=== PATIENT | female | born 1950 | race Caucasian/White ===

== ENCOUNTER 2018-06-02 03:04 | Outpatient (CLI) | payer MEDICARE, MEDICAID, SELFPAY ==
[2018-06-02 10:52] LABS: Abs Immature Grans 0.03 k/cumm (0.0-0.09); Absolute Basophil Count 0.03 k/cumm (0.0-0.2); Absolute Eosinophil Count 0.28 k/cumm (0.0-0.7); Absolute Lymphocyte Count 1.74 k/cumm (1.2-3.4); Absolute Monocyte Count 0.49 k/cumm (0.11-0.7); Absolute Neutrophil Count 2.91 k/cumm (1.2-6.7); Basophils % 0.5; Eosinophils % 5.1; HCT 40.6 % (36.0-46.0); HGB 13.5 g/dL (12.0-15.5); Immature Grans % 0.5; Lymphocytes % 31.8; Mean Corp. HGB Concentration 33.3 g/dL (32.0-36.0); Mean Corpuscular Hemoglobin 31.3 pg (27.0-33.0); Mean Corpuscular Volume 94.2 fL (80-95); Mean Platelet Volume 10.7 fL (8.0-11.0); Monocytes % 8.9; Neutrophils % 53.2; Platelet Count 249 x1000/uL (130-400); RBC 4.31 m/cumm (4.00-5.20); RBC Distribution Width 13.4 % (11.7-14.6); White Blood Cell Count 5.48 k/cumm (4.4-10.8)
[2018-06-02 11:20] LABS: ALT 24 U/L (12-78); AST 17 U/L (15-37); Alkaline Phosphatase 79 U/L (46-116); Anion Gap 7.1 mmol/L (3-11); BUN 20 mg/dL (7-18); Bilirubin, Total 0.5 mg/dL (0.2-1.0); CO2 32.9 mmol/L (21.0-32.0); CREATININE 0.97 mg/dL (0.55-1.02); Calcium 9.5 mg/dL (8.5-10.1); Chloride 103 mmol/L (98-107); Cholesterol 239 mg/dL (50-200); Estimated GFR 56.94 (mL/min/1.73m2); Glucose 98 mg/dL (70-100); HDL Cholesterol 49 mg/dL (40-60); LDL CHOLESTEROL 137 mg/dL (<100); Potassium 3.8 mmol/L (3.5-5.1); Sodium 143 mmol/L (136-145); TSH 3.79 uIU/mL (0.358-3.74); Total Protein 7.7 g/dL (6.4-8.2); Triglyceride 207 mg/dL (30-150)
[2018-06-02 11:49] LABS: FREE T4 1.07 ng/dL (0.76-1.46)
== END 2018-06-02 03:24 ==
PROVIDERS: PCP Nurse Practitioner Family; Visit Provider Nurse Practitioner Family
DX: E03.9 Hypothyroidism, unspecified (principal); E78.5 Hyperlipidemia, unspecified; I10 Essential (primary) hypertension; R79.89 Other specified abnormal findings of blood chemistry
CPT/HCPCS: 36415; 80053; 80061; 83721; 83036; 84439; 84443; 85025

== ENCOUNTER 2018-06-10 00:55 | Outpatient (CLI) | payer MEDICARE, MEDICAID, SELFPAY ==
--- NOTE | 2018-06-10 14:10 | DI.MAMMO_ITS ---
SYMPTOM/DIAGNOSIS: SCREENING, Z12.31 MAMMOGRAMS: Mammograms were interpreted according to the usual protocol including computer analysis with CAD system, tomosynthesis and C view imaging. Comparison with prior examinations. Breast density Category B. No suspicious masses or microcalcifications are seen. There is no definite evidence of malignancy. IMPRESSION: Negative mammogram. Routine screening is recommended. Category I. MQSA ASSESSMENT OF FINDINGS: Negative. Category 1. Patient will receive a letter notifying them of these results. BI-RADS category B. There are scattered areas of fibroglandular density.
--- NOTE | 2018-06-10 14:42 | DI.RAD_ITS ---
SYMPTOMS/DIAGNOSIS: SCREENING FOR OSTEOPOROSIS, Z78.0, POSTMENOPAUSAL DEXA SCAN: The scanogram is unremarkable. For the left forearm, a T score of -2.2 and a Z score of -0.2 were recorded, the findings consistent with osteopenia and an increased fracture risk. For the left hip, a T score of -1.2 and a Z score of 0.3 are consistent with osteopenia and an increased fracture risk. For the lumbar spine, a T score of -1.8 and a Z score of 0.3 are also consistent with osteopenia and an increased fracture risk.
== END 2018-06-10 01:15 ==
PROVIDERS: PCP Nurse Practitioner Family; Visit Provider Nurse Practitioner Family
DX: Z12.31 Encounter for screening mammogram for malignant neoplasm of breast (principal); M85.88 Other specified disorders of bone density and structure, other site; Z78.0 Asymptomatic menopausal state
CPT/HCPCS: 77063; 77067; 77080

== ENCOUNTER 2018-08-20 06:55 | Outpatient (CLI) | payer MEDICARE, MEDICAID, SELFPAY ==
[2018-08-20 11:35] LABS: ALT 31 U/L (12-78); AST 21 U/L (15-37); Albumin 3.8 g/dL (3.4-5.0); Alkaline Phosphatase 84 U/L (46-116); Anion Gap 9.7 mmol/L (3-11); BUN 19 mg/dL (7-18); Bilirubin, Total 0.5 mg/dL (0.2-1.0); CO2 30.3 mmol/L (21.0-32.0); CREATININE 1.17 mg/dL (0.55-1.02); Calcium 9.5 mg/dL (8.5-10.1); Chloride 101 mmol/L (98-107); Cholesterol 138 mg/dL (50-200); Estimated GFR 45.73 (mL/min/1.73m2); Glucose 104 mg/dL (70-100); HDL Cholesterol 45 mg/dL (40-60); LDL CHOLESTEROL 64 mg/dL (<100); Potassium 3.7 mmol/L (3.5-5.1); Sodium 141 mmol/L (136-145); TSH 1.22 uIU/mL (0.358-3.74); Total Protein 7.3 g/dL (6.4-8.2); Triglyceride 140 mg/dL (30-150)
[2018-08-20 11:56] LABS: FREE T4 1.21 ng/dL (0.76-1.46)
== END 2018-08-20 07:15 ==
PROVIDERS: PCP Nurse Practitioner Family; Visit Provider Nurse Practitioner Family
DX: E03.9 Hypothyroidism, unspecified (principal); E78.5 Hyperlipidemia, unspecified
CPT/HCPCS: 36415; 80053; 80061; 83721; 84439; 84443

== ENCOUNTER 2019-04-01 16:18 | Outpatient (REF) | payer MEDICARE, MEDICAID, SELFPAY ==
[2019-04-04 13:47] LABS: HSV 1 DNA Result Negative (Negative); HSV 2 DNA Result Positive (Negative)
== END 2019-04-01 16:38 ==
LOC: LBN 16:18
PROVIDERS: Visit Provider Obstetrics & Gynecology Gynecology
DX: N76.2 Acute vulvitis (principal)
CPT/HCPCS: 87529

== ENCOUNTER 2019-06-14 07:23 | Outpatient (CLI) | payer MEDICARE, MEDICAID, SELFPAY ==
[2019-06-14 13:08] LABS: ALT 34 U/L (14-59); AST 20 U/L (15-37); Albumin 4.1 g/dL (3.4-5.0); Alkaline Phosphatase 82 U/L (46-116); Anion Gap 6.7 mmol/L (3-11); BUN 19 mg/dL (7-18); Bilirubin, Total 0.5 mg/dL (0.2-1.0); CO2 33.3 mmol/L (21.0-32.0); CREATININE 1.23 mg/dL (0.55-1.02); Calcium 9.2 mg/dL (8.5-10.1); Calculated LDL 81 mg/dL (<100); Chloride 104 mmol/L (98-107); Cholesterol 159 mg/dL (<200); Estimated GFR 43.17 (mL/min/1.73m2); Glucose 104 mg/dL (74-106); HDL Cholesterol 47 mg/dL (40-60); Potassium 3.9 mmol/L (3.5-5.1); Sodium 144 mmol/L (136-145); TSH (W/Ref FT4) 4.32 uIU/mL (0.36-3.74); Total Protein 7.7 g/dL (6.4-8.2); Triglyceride 159 mg/dL (<150)
[2019-06-14 13:26] LABS: FREE T4 1.12 ng/dL (0.76-1.46)
== END 2019-06-14 07:43 ==
DX: E03.9 Hypothyroidism, unspecified (principal); R73.03 Prediabetes; E78.5 Hyperlipidemia, unspecified; I10 Essential (primary) hypertension; G47.00 Insomnia, unspecified; J02.9 Acute pharyngitis, unspecified
CPT/HCPCS: 36415; 80053; 80061; 84439; 84443

== ENCOUNTER 2020-05-18 02:20 | Outpatient (CLI) | payer MEDICARE, MEDICAID, SELFPAY ==
[2020-05-19 14:14] LABS: COVID-19 RT-PCR UVMMC Result Negative (Negative)
== END 2020-05-18 02:21 | disposition home or self-care (01) ==
LOC: LBO 02:20
DX: Z20.822 Contact with and (suspected) exposure to COVID-19 (principal); J02.9 Acute pharyngitis, unspecified
CPT/HCPCS: U0003; U0005; 87070

== ENCOUNTER 2020-05-31 03:24 | Outpatient (CLI) | payer MEDICARE, MEDICAID, SELFPAY ==
[2020-05-31 12:35] LABS: ALT 49 U/L (14-59); AST 27 U/L (15-37); Albumin 3.9 g/dL (3.4-5.0); Alkaline Phosphatase 90 U/L (46-116); Anion Gap 8.1 mmol/L (3-11); BUN 19 mg/dL (7-18); Bilirubin, Total 0.6 mg/dL (0.2-1.0); CO2 29.9 mmol/L (21.0-32.0); CREATININE 1.2 mg/dL (0.55-1.02); Calcium 9.7 mg/dL (8.5-10.1); Chloride 103 mmol/L (98-107); Estimated GFR 44.29 (mL/min/1.73m2); Glucose 102 mg/dL (74-106); Potassium 4.3 mmol/L (3.5-5.1); Sodium 141 mmol/L (136-145); TSH (W/Ref FT4) 0.29 uIU/mL (0.36-3.74); Total Protein 7.7 g/dL (6.4-8.2)
[2020-05-31 12:54] LABS: FREE T4 1.25 ng/dL (0.76-1.46)
== END 2020-05-31 03:25 | disposition home or self-care (01) ==
LOC: LOS 03:25
DX: E03.9 Hypothyroidism, unspecified (principal)
CPT/HCPCS: 36415; 80053; 84439; 84443

== ENCOUNTER 2020-06-15 03:42 | Outpatient (CLI) | payer MEDICARE, MEDICAID, SELFPAY ==
--- NOTE | 2020-06-15 11:12 | DI.MAMMO_ITS ---
EXAM: MAMMO SCREENING CLINICAL HISTORY: SCREENING, Z12.39 TECHNIQUE: Mammograms were interpreted according to the usual protocol including computer analysis w [employer] CAD system, tomosynthesis and C-view imaging. COMPARISON: FINDINGS: The breasts are of moderate density with fairly symmetrical distribution of fibroglandular tissue. N o dominant mass or clumped microcalcification is identified in either breast. The current examinatio n is compared with previous examinations including May 2018 and there has been no gross interval ch [place] in appearance in comparison with the prior studies. IMPRESSION: No specific evidence of malignancy at this time. Routine screening examinations are suggested at yea rly intervals in this age group according to the ACS ACR guidelines. BI-RADS Category 1 - Negative Breast Density - Category B - Scattered areas of fibroglandular density
== END 2020-06-15 04:02 ==
DX: Z12.31 Encounter for screening mammogram for malignant neoplasm of breast (principal)
CPT/HCPCS: 77063; 77067

== ENCOUNTER 2021-01-03 02:31 | Outpatient (CLI) | payer MEDICARE, MEDICAID, SELFPAY ==
[2021-01-03 12:58] LABS: TSH (W/Ref FT4) 1.55 uIU/mL (0.36-3.74)
== END 2021-01-03 02:32 | disposition home or self-care (01) ==
LOC: LOS 02:32
DX: E03.9 Hypothyroidism, unspecified (principal)
CPT/HCPCS: 36415; 84443

== ENCOUNTER 2021-07-01 02:40 | Outpatient (CLI) | payer MEDICARE, MEDICAID, SELFPAY | END 2021-07-01 02:41 | disposition home or self-care (01) | LOC: LBO 02:40 ==

== ENCOUNTER 2021-07-05 02:30 | Outpatient (CLI) | payer MEDICARE, MEDICAID, SELFPAY ==
[2021-07-05 11:27] LABS: ALT 30 U/L (14-59); AST 25 U/L (15-37); Albumin 3.9 g/dL (3.4-5.0); Alkaline Phosphatase 99 U/L (46-116); Anion Gap 9.8 mmol/L (3-11); BUN 18 mg/dL (7-18); Bilirubin, Total 0.5 mg/dL (0.2-1.0); CO2 29.2 mmol/L (21.0-32.0); CREATININE 1.1 mg/dL (0.55-1.02); Calcium 8.8 mg/dL (8.5-10.1); Calculated LDL 63 mg/dL (<100); Chloride 104 mmol/L (98-107); Cholesterol 140 mg/dL (<200); Estimated GFR 48.82 (mL/min/1.73m2); Glucose 98 mg/dL (74-106); HDL Cholesterol 40 mg/dL (40-60); Potassium 3.6 mmol/L (3.5-5.1); Sodium 143 mmol/L (136-145); TSH (W/Ref FT4) 1.98 uIU/mL (0.36-3.74); Total Protein 7.5 g/dL (6.4-8.2); Triglyceride 187 mg/dL (<150)
== END 2021-07-05 02:31 | disposition home or self-care (01) ==
LOC: LBO 02:30
DX: E78.5 Hyperlipidemia, unspecified (principal); E03.9 Hypothyroidism, unspecified; I10 Essential (primary) hypertension
CPT/HCPCS: 36415; 80053; 80061; 84443

== ENCOUNTER → 2021-09-10 00:23 | Outpatient (CLI) | payer MEDICARE, MEDICAID, SELFPAY ==
--- NOTE | 2021-09-10 10:30 | DI.MAMMO_ITS ---
Exam(s) MAMMO SCREENING EXAM: MAMMO SCREENING CLINICAL HISTORY: screening,z12.39 TECHNIQUE: Mammograms were interpreted according to the usual protocol including computer analysis w [employer] CAD system, tomosynthesis and C-view imaging. COMPARISON: 2012 through 2020 FINDINGS: The breasts are composed of scattered fibroglandular densities, Breast Density category B. No suspicious masses or suspicious microcalcifications are seen. Vascular calcifications are present . No skin thickening or abnormal axillary lymph nodes are seen. There has been no significant change from prior exams. IMPRESSION: BI-RADS Category 1, Negative mammogram Yearly screening mammography is recommended. Breast Density - Category B, scattered fibroglandular densities. A negative radiographic report should not delay biopsy if a dominant or clinically suspicious mass is present. Up to ten percent of cancers are not identified on mammography. A negative report may reinforce clinical impression. Adenosis and dense breasts may obscure an underlying neoplasm. False positive reports average 6 to 10%. Patient will receive a letter notifying them of these results.
== END ==
DX: Z12.31 Encounter for screening mammogram for malignant neoplasm of breast (principal)
CPT/HCPCS: 77063; 77067

== ENCOUNTER 2022-02-03 08:41 | Inpatient (IN) | payer MEDICARE, MEDICAID, SELFPAY ==
[2022-02-03] VITALS (72 sets, daily range): BP systolic 78–129; BP diastolic 38–97; PULSE 68–179; RESP 13–29; TEMP 36.7–38.6; O2SAT 93–96
--- NOTE | 2022-02-03 | DI.US_ITS ---
Exam(s) US RENAL EXAM: US RENAL CLINICAL HISTORY: KEYLA. TECHNIQUE: German scale, color and spectral Doppler were used. COMPARISON: No exams were available for comparison FINDINGS: Renal size in cm: Right: 11.5 left: 10.6 Echogenicity: Normal Hydronephrosis: No Cyst or mass: 3.3 centimeters cyst lateral lower pole right kidney. 5.7 by 6 centimeters cyst lower pole left kidney. Nephrolithiasis: No Bladder:Normal Prevoid vol:312 cc Postvoid vol:Not performed. IMPRESSION: Bilateral renal cysts. No evidence of hydronephrosis. DATA REPOSITORY:
--- NOTE | 2022-02-03 09:00 | RT.EKG_ITS ---
APPROVED REPORT Exam: Resting ECG Reason for Exam: tachycardia Patient Location: E HR:154 bpm ECG Measurements Heart Rate 154 AXIS SD [id number] P [id number] QRSd 84 QRS 17 QT 262 T 245 QTc 424 Conclusion Atrial fibrillation with rapid V-rate...A-rate 417 Repolarization abnormality, prob rate related...ST dep, T neg, tachycardia no STEMI I have reviewed and interpreted ECG and agree with software generated interpretation.
[2022-02-03] MEDS: dilTIAZem 25 MG/5 ML VIAL 10 MG IVP (09:17)
[2022-02-03] MEDS: Normal Saline 250 ML IV (09:28)
[2022-02-03 09:29] LABS: Lactate 1.8 mmol/L (0.6-1.4)
[2022-02-03] MEDS: Calcium Gluconate 4.65 MEQ/10 ML VIAL 4.65 MG IVP (09:44)
[2022-02-03 09:45] LABS: Abs Immature Grans 0.06 10^3/uL (0.0-0.06); HCT 39.6 % (36.0-46.0); HGB 13.1 g/dL (11.2-15.7); MCH 29.8 pg (27.0-33.0); MCHC 33.1 % (32.0-36.0); MCV 90 fL (80-95); MPV 10.6 fL (8.0-11.0); Platelet Count 219 10^3/uL (130-400); RDW 12.4 % (11.7-14.6); RDW-SD 40.9 fL
--- NOTE | 2022-02-03 09:45 | DI.CT_ITS ---
Exam(s) CT HEAD WO EXAM: CT HEAD WO CLINICAL HISTORY: right sided headache. TECHNIQUE: Imaging Protocol: Axial computed tomography images with coronal and sagittal reformatted images were created and reviewed COMPARISON: CT CERVICAL SPINE WITHOUT CONTRA from 06/22/2016 FINDINGS: Ventricles and Extra axial spaces: Normal in size and morphology for the patient's age. Hemorrhage: None. Cerebral parenchyma: Normal. Midline shift: None. Brainstem/Cerebellum: Normal. Calvarium: Normal. Visualized Paranasal sinuses/Mastoids: Minimal mucous retention floor of left maxillary sinus. Soft Tissues: Unremarkable. IMPRESSION: No acute intracranial process. RADIATION DOSE DELIVERED: 652.59mGy.cm Total DLP DATA REPOSITORY: All CT scans at this facility are submitted to the National Radiology Data Registry (NRDR) Dose Index Registry (DIR) with the [employer] ([employer]). RADIATION OPTIMIZATION: All CT scans at this facility use at least one of these dose optimization te chniques: automated exposure control; mA and/or kV adjustment per patient size (includes targeted exa ms where dose is matched to clinical indication); or iterative reconstruction.
--- NOTE | 2022-02-03 10:00 | DI.RAD_ITS ---
Exam(s) XR CHEST 2V PA LATERAL EXAM: XR CHEST 2V PA LATERAL CLINICAL HISTORY: new afib, fever TECHNIQUE: 2D digital imaging was performed. COMPARISON: CR LEFT SHOULDER COMPLETE from 03/30/2017 FINDINGS: HEART: Normal size. Aorta: PULMONARY VASCULATURE: Normal. LUNGS: Clear. PLEURAL SPACE: No pleural effusion or pneumothorax. BONE:Unremarkable for age. IMPRESSION: No acute abnormality. DATA REPOSITORY: RADIATION DOSE DELIVERED:
[2022-02-03 10:05] LABS: ALT 34 U/L (14-59); AST 44 U/L (15-37); Albumin 3.1 g/dL (3.4-5.0); Alkaline Phosphatase 135 U/L (46-116); BUN 43 mg/dL (7-18); Bilirubin, Total 1.1 mg/dL (0.2-1.0); Calcium 8.9 mg/dL (8.5-10.1); Chloride 95 mmol/L (98-107); Estimated GFR 12.38 (mL/min/1.73m2); Glucose 133 mg/dL (74-106); Magnesium 1.7 mg/dL (1.8-2.4); NT-proBNP 1791 pg/mL (<300); Sodium 136 mmol/L (136-145); TSH (W/Ref FT4) 0.54 uIU/mL (0.36-3.74); Total Protein 8.2 g/dL (6.4-8.2); Troponin I < 50 ng/L (<or=60)
[2022-02-03 10:10] LABS: Absolute Lymphocyte Count 1.02 10^3/uL (1.2-3.4); Absolute Monocyte Count 0.64 10^3/uL (0.1-0.8); Absolute Neutrophil Count 11.14 10^3/uL (1.2-6.7); Atypical Lymphocytes % 0; Bands % 0; Diff Comment Manual Differential; RBC Morphology Normal
[2022-02-03 10:15] LABS: CREATININE 3.7 mg/dL (0.55-1.02); Potassium 2.7 mmol/L (3.5-5.1)
[2022-02-03 10:16] LABS: COVID-19 PCR Negative (Negative); Influenza A PCR Negative (Negative); Influenza B PCR Negative (Negative); RSV PCR Negative (Negative)
--- NOTE | 2022-02-03 10:19 | ED.GENADUL_ITS ---
Discharge Plan Disposition Patient Disposition: Admit to [facility] Discharge Details Chief Complaint: GenMedical Clinical Impression: Atrial fibrillation with rapid ventricular response, KEYLA (acute kidney injury) Admit Date/Time: 02/03/22 10:34 Admit Provider: Shirley Nichols Attending Provider: Shirley Nichols Primary Care Provider: Teofilo Steele ED Provider: Yahaira Jeffrey Discharge Data Discharge Date/Time-TO BE ENTERED AT DEPARTURE: 02/03/22 11:31 Medical Decision Making Concern for new onset afib with RVR, dehydration, COVID, possible other infection, ACS, PE, metabolic/lyte derangement, post shingles neuropathy/trigemi nal neuralgia, other. Less likely acute emergent intracranial process. Exam/hx at this time is not c/w acute aortic pathology, CVA, SAH, meningitis. Plan for IV placement, EKG, IVF, screening labs, 10mg IV diltiazem, telemetry, CXR, CT head, will monitor and reassess. Pt with SBP 80 after IV diltiazem, previously 120, Pt converted to SR with HR 90s. Plan for IVF, will monitor. Not improving significantly after IVF, plan for IV calcium. Labs reviewed, WBC 12.8, d-dimer 4320, lactate 1.8, Cr 3.7, mag 1.7, trop neg. CT head neg, CXR neg per radiology. Pt with SBP 90. Plan for admission for further eval. Holding CT chest at this time given KEYLA, less likely PE as etiology. Medical Records Medical records reviewed: Yes I reviewed the patient's medical records. Imaging Data Radiologic Study: Radiologist's impression: EXAM:? XR CHEST 2V PA ? LATERAL CLINICAL HISTORY:? new afib, fever TECHNIQUE:? 2D digital imaging was performed. COMPARISON:? CR LEFT SHOULDER COMPLETE from 03/30/2017 FINDINGS: HEART: Normal size.? Aorta: PULMONARY VASCULATURE: Normal. LUNGS: Clear. ? PLEURAL SPACE: No pleural effusion or pneumothorax. BONE:Unremarkable for age.? IMPRESSION: No acute abnormality.? EXAM: ? CT HEAD WO CLINICAL HISTORY: ? right sided headache. ? TECHNIQUE:? Imaging Protocol: Axial computed tomography images with coronal and sagittal reformatted images were created and reviewed COMPARISON:? CT CERVICAL SPINE WITHOUT CONTRA from 06/22/2016 FINDINGS: Ventricles and Extra axial spaces: Normal in size and morphology for the patient's age. Hemorrhage: None. Cerebral parenchyma: Normal. Midline shift: None. Brainstem/Cerebellum: Normal. Calvarium: Normal. Visualized Paranasal sinuses/Mastoids: Minimal mucous retention floor of left maxillary sinus.? Soft Tissues: Unremarkable. IMPRESSION: No acute intracranial process. Lab Data Lab results reviewed: Yes I reviewed the patient's lab results. Labs: 02/03/22 10:00 Blood Blood Culture - Pending 02/03/22 09:45 Blood Blood Culture - Pending Laboratory Tests Range/Units 02/03/22 02/03/22 02/03/22 09:18 09:18 09:18 WBC (4.4-10.8) 10^3/uL 12.80 H RBC (3.93-5.22) 10^6/uL 4.40 Hgb (11.2-15.7) g/dL 13.1 Hct (36.0-46.0) % 39.6 MCV (80-95) fL 90 MCH (27.0-33.0) pg 29.8 MCHC (32.0-36.0) % 33.1 RDW (11.7-14.6) % 12.4 Plt Count (130-400) 10^3/uL 219 MPV (8.0-11.0) fL 10.6 Immature Gran % 0.0 Neutrophils % 87.0 Band Neutrophils % 0 Lymphocytes % 8.0 Atypical Lymphs % 0 Monocytes % 5.0 Eosinophils % 0.0 Basophils % 0.0 Nucleated RBC % (0.0-0.3) % 0.0 Absolute Neutrophils (1.2-6.7) 10^3/uL 11.14 H Absolute Lymphocytes (1.2-3.4) 10^3/uL 1.02 L Absolute Monocytes (0.1-0.8) 10^3/uL 0.64 Absolute Eosinophils (0.0-0.7) 10^3/uL 0.00 Absolute Basophils (0.0-0.2) 10^3/uL 0.00 RBC Morphology Normal D-Dimer (<500) ng/mlFEU 4320 H VBG Lactate (0.6-1.4) mmol/L Sodium (136-145) mmol/L 136 Potassium (3.5-5.1) mmol/L 2.7 L* Chloride (98-107) mmol/L 95 L Carbon Dioxide (21.0-32.0) mmol/L 24.0 Anion Gap (3-11) mmol/L 17.0 H BUN (7-18) mg/dL 43 H Creatinine (0.55-1.02) mg/dL 3.7 H* Est GFR (CKD-EPI 2020) (mL/min/1.73m2) 12.38 Glucose (74-106) mg/dL 133 H Calcium (8.5-10.1) mg/dL 8.9 Magnesium (1.8-2.4) mg/dL 1.7 L Total Bilirubin (0.2-1.0) mg/dL 1.1 H AST (15-37) U/L 44 H ALT (14-59) U/L 34 Alkaline Phosphatase (46-116) U/L 135 H Troponin I (<or=60) ng/L < 50 C-Reactive Protein (0.0-0.3) mg/dL NT-Pro-B Natriuret Pep (<300) pg/mL 1791 H Total Protein (6.4-8.2) g/dL 8.2 Albumin (3.4-5.0) g/dL 3.1 L Procalcitonin ng/mL TSH (0.36-3.74) uIU/mL 0.54 COVID-19 Source SARS-CoV-2 (PCR) (Negative) Influenza Type A (PCR) (Negative) Influenza Type B (PCR) (Negative) RSV (PCR) (Negative) Add-On Test Request Range/Units 02/03/22 02/03/22 02/03/22 09:18 09:18 09:35 WBC (4.4-10.8) 10^3/uL RBC (3.93-5.22) 10^6/uL Hgb (11.2-15.7) g/dL Hct (36.0-46.0) % MCV (80-95) fL MCH (27.0-33.0) pg MCHC (32.0-36.0) % RDW (11.7-14.6) % Plt Count (130-400) 10^3/uL MPV (8.0-11.0) fL Immature Gran % Neutrophils % Band Neutrophils % Lymphocytes % Atypical Lymphs % Monocytes % Eosinophils % Basophils % Nucleated RBC % (0.0-0.3) % Absolute Neutrophils (1.2-6.7) 10^3/uL Absolute Lymphocytes (1.2-3.4) 10^3/uL Absolute Monocytes (0.1-0.8) 10^3/uL Absolute Eosinophils (0.0-0.7) 10^3/uL Absolute Basophils (0.0-0.2) 10^3/uL RBC Morphology D-Dimer (<500) ng/mlFEU VBG Lactate (0.6-1.4) mmol/L 1.8 H Sodium (136-145) mmol/L Potassium (3.5-5.1) mmol/L Chloride (98-107) mmol/L Carbon Dioxide (21.0-32.0) mmol/L Anion Gap (3-11) mmol/L BUN (7-18) mg/dL Creatinine (0.55-1.02) mg/dL Est GFR (CKD-EPI 2020) (mL/min/1.73m2) Glucose (74-106) mg/dL Calcium (8.5-10.1) mg/dL Magnesium (1.8-2.4) mg/dL Cancelled Total Bilirubin (0.2-1.0) mg/dL AST (15-37) U/L ALT (14-59) U/L Alkaline Phosphatase (46-116) U/L Troponin I (<or=60) ng/L C-Reactive Protein (0.0-0.3) mg/dL NT-Pro-B Natriuret Pep (<300) pg/mL Total Protein (6.4-8.2) g/dL Albumin (3.4-5.0) g/dL Procalcitonin ng/mL TSH (0.36-3.74) uIU/mL COVID-19 Source Not Applicable SARS-CoV-2 (PCR) (Negative) Negative Influenza Type A (PCR) (Negative) Negative Influenza Type B (PCR) (Negative) Negative RSV (PCR) (Negative) Negative Add-On Test Request Range/Units 02/03/22 02/03/22 02/03/22 09:48 09:48 09:48 WBC (4.4-10.8) 10^3/uL RBC (3.93-5.22) 10^6/uL Hgb (11.2-15.7) g/dL Hct (36.0-46.0) % MCV (80-95) fL MCH (27.0-33.0) pg MCHC (32.0-36.0) % RDW (11.7-14.6) % Plt Count (130-400) 10^3/uL MPV (8.0-11.0) fL Immature Gran % Neutrophils % Band Neutrophils % Lymphocytes % Atypical Lymphs % Monocytes % Eosinophils % Basophils % Nucleated RBC % (0.0-0.3) % Absolute Neutrophils (1.2-6.7) 10^3/uL Absolute Lymphocytes (1.2-3.4) 10^3/uL Absolute Monocytes (0.1-0.8) 10^3/uL Absolute Eosinophils (0.0-0.7) 10^3/uL Absolute Basophils (0.0-0.2) 10^3/uL RBC Morphology D-Dimer (<500) ng/mlFEU VBG Lactate (0.6-1.4) mmol/L Sodium (136-145) mmol/L Potassium (3.5-5.1) mmol/L Chloride (98-107) mmol/L Carbon Dioxide (21.0-32.0) mmol/L Anion Gap (3-11) mmol/L BUN (7-18) mg/dL Creatinine (0.55-1.02) mg/dL Est GFR (CKD-EPI 2020) (mL/min/1.73m2) Glucose (74-106) mg/dL Calcium (8.5-10.1) mg/dL Magnesium (1.8-2.4) mg/dL Total Bilirubin (0.2-1.0) mg/dL AST (15-37) U/L ALT (14-59) U/L Alkaline Phosphatase (46-116) U/L Troponin I (<or=60) ng/L C-Reactive Protein (0.0-0.3) mg/dL > 25.00 H NT-Pro-B Natriuret Pep (<300) pg/mL Total Protein (6.4-8.2) g/dL Albumin (3.4-5.0) g/dL Procalcitonin ng/mL 20.1 TSH (0.36-3.74) uIU/mL COVID-19 Source SARS-CoV-2 (PCR) (Negative) Influenza Type A (PCR) (Negative) Influenza Type B (PCR) (Negative) RSV (PCR) (Negative) Add-On Test Request DONE ECG Data Attestation: I personally reviewed and interpreted this ECG (s) as follows: Interpretation: EKG shows A. fib at 154, normal axis, no STEMI HPI General Mode of arrival: ambulatory . Date/Time Provider Initiated Documentation: 02/03/22 08:42 . Limitations to Documentation: no limitations . Information obtained by: patient, family, RN notes reviewed and old records reviewed . HPI Narrative: Sujata Najera is a 71-year-old woman with history of hyperlipidemia, hypertension, hypothyroidism presenting to the emergency department with generalized weakness. Patient reports that for the past 3 days she has had intermittent chills, subjective fever, lightheadedness, and generalized weakness. She has also had sharp pain in her right scalp tracking down her right face into the right preauricular area intermittently over that time. Patient reports that she has had shingles in that area in the past approximately 3 years ago, she is unsure if this pain is similar to what she experienced with her prior episode of carola ngles. She denies any other pain, vomiting, diarrhea, SOB, cough, numbness, focal weakness. Somewhat decreased appetite. Related Data Home Medications Medication Instructions Recorded Confirmed acetaminophen 500 mg tablet 1,000 mg PO BID PRN 01/03/19 02/03/22 ibuprofen 600 mg tablet 600 mg PO TID PRN pain #180 tabs 01/03/19 02/03/22 levothyroxine 75 mcg tablet 75 mcg PO DAILY #90 tab-caps 12/13/20 02/03/22 rosuvastatin 10 mg tablet 10 mg PO DAILY #90 tabs 12/13/20 02/03/22 doxepin 25 mg capsule 25 mg PO QHS #30 caps 01/08/22 02/03/22 halobetasol propionate 0.05 % 1 applic topical BID PRN for hand 01/08/22 02/03/22 topical ointment eczema #15 grams triamcinolone acetonide 0.5 % 1 applic topical BID dermatitis 01/08/22 02/03/22 topical cream #45 grams losartan 100 mg tablet 100 mg PO DAILY #90 tabs 01/10/22 02/03/22 gabapentin 300 mg capsule 1 cap PO TID 02/03/22 02/03/22 hydrochlorothiazide 25 mg tablet 1 tab PO DAILY 02/03/22 02/03/22 apixaban 5 mg tablet (Eliquis) 5 mg PO BID #60 tabs 02/07/22 Previous Rx's Medication Instructions Recorded ibuprofen 600 mg tablet 600 mg PO TID PRN pain #180 tabs 01/03/19 levothyroxine 75 mcg tablet 75 mcg PO DAILY #90 tab-caps 12/13/20 rosuvastatin 10 mg tablet 10 mg PO DAILY #90 tabs 12/13/20 doxepin 25 mg capsule 25 mg PO QHS #30 caps 01/08/22 halobetasol propionate 0.05 % 1 applic topical BID PRN for hand 01/08/22 topical ointment eczema #15 grams triamcinolone acetonide 0.5 % 1 applic topical BID dermatitis 01/08/22 topical cream #45 grams losartan 100 mg tablet 100 mg PO DAILY #90 tabs 01/10/22 apixaban 5 mg tablet (Eliquis) 5 mg PO BID #60 tabs 02/07/22 Allergies Allergy/AdvReac Type Severity Reaction Status Date / Time tramadol AdvReac Intermediate Nausea, Verified 02/03/22 09:04 dizziness lisinopril AdvReac Mild COUGH Verified 02/03/22 09:04 General Stated Complaint: GenMedical MARIA: 2 Review of Systems Narrative: Constitutional: reports intermittent sweating, chills, has not measured temp Eyes: denies eye pain ENT: denies ear pain, dental pain, sore throat Cardiovascular: denies chest pain, palpitations, reports lightheadedness, mild b/l edema at baseline Respiratory: denies SOB, cough GI: denies abdominal pain, vomiting, diarrhea : denies flank pain MSK: denies back pain, neck pain, arthralgias, reports generalized myalgias Skin: denies rash Neuro: denies headaches, numbness, weakness PFSH All Active Problems Sepsis (Acute) Trigeminal neuralgia of right side of face (Acute) Discharge planning issues (Acute) DVT prophylaxis (Acute) Hypomagnesemia (Acute) Elevated d-dimer (Acute) KEYLA (acute kidney injury) (Acute) Acute CHF (Acute) Atrial fibrillation with rapid ventricular response (Acute) Essential hypertension (Chronic) Hyperlipidemia (Chronic) Hypothyroidism (Chronic) Vaginal atrophy (Chronic 11/09/17) Rx with vaginal Estrogen cream. Expense of vaginal estrogen cream was an issue Chronic vulvitis (Chronic) Long-standing approximately 3 years duration 09/2017 briefly used vaginal Jose Guadalupe monika and triamcinolone topical steroid with improvement. 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 Dermatitis (Acute) Chronic heartburn (Chronic) Advance directive declined by patient (Acute) Medical History Acute vulvitis 02/20/2019. Developed into lesions. PCR: HSV2. Patient advised to notify the office in the event of another flare Postherpetic neuralgia Surgical History S/P appendectomy S/P left oophorectomy For ovarian cyst S/P tonsillectomy and adenoidectomy S/P tubal ligation (~1978) Status post left shoulder hemiarthroplasty (03/30/17) Hemiarthroplasty left shoulder using humeral CAP prosthesis Family History Mother , at 87 Essential hypertension Heart disease Stroke Atrial fibrillation Father , at 78 Essential hypertension Heart disease Asthma Type 2 diabetes mellitus Chronic kidney disease Myocardial infarction Hyperlipidemia Brother No problems noted. Brother , at 54 Alcohol abuse Type 2 diabetes mellitus Hepatitis C Liver disease Sister Schizophrenia Hypothyroidism Son Schizophrenia Son Bipolar disorder Alcohol abuse Substance abuse Maternal Grandfather No problems noted. Maternal Grandmother Heart disease Paternal Grandfather No problems noted. Paternal Grandmother No problems noted. Social History Smoking/Tobacco Use Status: Never Second Hand Exposure: Yes Smoking risk assessment performed?: Yes Alcohol Intake: never Drug use: Never Substance use type: does not use Household members: children Housing: house Pets and animals: Yes Pets and animals: cat(s) Sexually active: No Do you think of yourself as: straight/heterosexual Current gender identity: male and decline to answer What is your relationship status?: How often do you talk on the phone with friends or family?: decline to answer How often do you get together with friends or relatives?: decline to answer How often do you attend christianity or yarsani services?: decline to answer Do you belong to any clubs or organized social groups?: no Panel score (0-1 are the most socially isolated patients): 0 What type of physical activity do you participate in: walking Duration: < 15 minutes/day Frequency: daily Gill/Mosque: Sabianism Special gill needs: No Seatbelt use: always Helmet use: No Drive intox or ride w/intox commercial relief driver: No Do you feel safe at home: Yes Do you feel safe in your relationship?: Yes Female Reproductive History Menstrual Menopause type: natural Date of menopause: 03/23/95 History History 2 Para 2 Hx # Term Pregnancies Multiple births Hx # Pregnancies Ectopic pregnancies AB induced Hx Number of Living Children 2 AB spontaneous Exam Narrative Exam Narrative: Constitutional: ill appearing, pleasant, conversing normally HENT: head atraumatic/normocephalic/normal inspection, mucous membranes dry Eyes: conjunctiva normal, sclera normal, pupils 3mm b/l Neck: no stridor, normal ROM, trachea midline Chest: normal inspection Resp: normal work of breathing, LCTAB Cardio: tachycardic rate, irregular rhythm, no murmur appreciated GI: abdomen soft, non-tender, non-distended Back: normal inspection, no rash Skin: warm, dry, normal color, no rash Neuro: alert, not altered, grossly non-focal, normal tone Ext: no posterior calf TTP, moving all extremities equally Psych: normal mood, normal affect, normal behavior Course Vital Signs Vital signs: Vital Signs Temperature 36.7 C 02/03/22 08:54 Pulse 172 H 02/03/22 08:54 Respiratory Rate 20 02/03/22 08:54 Pulse Oximetry 96 02/03/22 08:54 Temperature 36.7 C 02/03/22 08:54 Temperature Source Tympanic 02/03/22 08:54 Pulse 170 H 02/03/22 09:17 Respiratory Rate 20 02/03/22 09:00 Respiratory Effort 02/03/22 09:00 Respiratory Depth Normal 02/03/22 09:00 Respiratory Pattern Normal 02/03/22 09:00 Blood Pressure Position Supine 02/03/22 08:54 Pulse Oximetry 96 02/03/22 08:54 Oxygen Delivery Method Room Air 02/03/22 08:54 Oxygen Flow Rate 0 02/03/22 08:54 Lab/Test Results Lab/Test Results: 02/03/22 10:00 Blood Blood Culture - Pending 02/03/22 09:45 Blood Blood Culture - Pending Laboratory Tests Range/Units 02/03/22 02/03/22 02/03/22 09:18 09:18 09:18 WBC (4.4-10.8) 10^3/uL 12.80 H RBC (3.93-5.22) 10^6/uL 4.40 Hgb (11.2-15.7) g/dL 13.1 Hct (36.0-46.0) % 39.6 MCV (80-95) fL 90 MCH (27.0-33.0) pg 29.8 MCHC (32.0-36.0) % 33.1 RDW (11.7-14.6) % 12.4 Plt Count (130-400) 10^3/uL 219 MPV (8.0-11.0) fL 10.6 Immature Gran % 0.0 Neutrophils % 87.0 Band Neutrophils % 0 Lymphocytes % 8.0 Atypical Lymphs % 0 Monocytes % 5.0 Eosinophils % 0.0 Basophils % 0.0 Nucleated RBC % (0.0-0.3) % 0.0 Absolute Neutrophils (1.2-6.7) 10^3/uL 11.14 H Absolute Lymphocytes (1.2-3.4) 10^3/uL 1.02 L Absolute Monocytes (0.1-0.8) 10^3/uL 0.64 Absolute Eosinophils (0.0-0.7) 10^3/uL 0.00 Absolute Basophils (0.0-0.2) 10^3/uL 0.00 RBC Morphology Normal VBG Lactate (0.6-1.4) mmol/L 1.8 H Sodium (136-145) mmol/L 136 Potassium (3.5-5.1) mmol/L 2.7 L* Chloride (98-107) mmol/L 95 L Carbon Dioxide (21.0-32.0) mmol/L 24.0 Anion Gap (3-11) mmol/L 17.0 H BUN (7-18) mg/dL 43 H Creatinine (0.55-1.02) mg/dL 3.7 H* Est GFR (CKD-EPI 2020) (mL/min/1.73m2) 12.38 Glucose (74-106) mg/dL 133 H Calcium (8.5-10.1) mg/dL 8.9 Magnesium (1.8-2.4) mg/dL 1.7 L Total Bilirubin (0.2-1.0) mg/dL 1.1 H AST (15-37) U/L 44 H ALT (14-59) U/L 34 Alkaline Phosphatase (46-116) U/L 135 H Troponin I (<or=60) ng/L < 50 NT-Pro-B Natriuret Pep (<300) pg/mL 1791 H Total Protein (6.4-8.2) g/dL 8.2 Albumin (3.4-5.0) g/dL 3.1 L TSH (0.36-3.74) uIU/mL 0.54 COVID-19 Source SARS-CoV-2 (PCR) (Negative) Influenza Type A (PCR) (Negative) Influenza Type B (PCR) (Negative) RSV (PCR) (Negative) Range/Units 02/03/22 02/03/22 09:18 09:35 WBC (4.4-10.8) 10^3/uL RBC (3.93-5.22) 10^6/uL Hgb (11.2-15.7) g/dL Hct (36.0-46.0) % MCV (80-95) fL MCH (27.0-33.0) pg MCHC (32.0-36.0) % RDW (11.7-14.6) % Plt Count (130-400) 10^3/uL MPV (8.0-11.0) fL Immature Gran % Neutrophils % Band Neutrophils % Lymphocytes % Atypical Lymphs % Monocytes % Eosinophils % Basophils % Nucleated RBC % (0.0-0.3) % Absolute Neutrophils (1.2-6.7) 10^3/uL Absolute Lymphocytes (1.2-3.4) 10^3/uL Absolute Monocytes (0.1-0.8) 10^3/uL Absolute Eosinophils (0.0-0.7) 10^3/uL Absolute Basophils (0.0-0.2) 10^3/uL RBC Morphology VBG Lactate (0.6-1.4) mmol/L Sodium (136-145) mmol/L Potassium (3.5-5.1) mmol/L Chloride (98-107) mmol/L Carbon Dioxide (21.0-32.0) mmol/L Anion Gap (3-11) mmol/L BUN (7-18) mg/dL Creatinine (0.55-1.02) mg/dL Est GFR (CKD-EPI 2020) (mL/min/1.73m2) Glucose (74-106) mg/dL Calcium (8.5-10.1) mg/dL Magnesium (1.8-2.4) mg/dL Cancelled Total Bilirubin (0.2-1.0) mg/dL AST (15-37) U/L ALT (14-59) U/L Alkaline Phosphatase (46-116) U/L Troponin I (<or=60) ng/L NT-Pro-B Natriuret Pep (<300) pg/mL Total Protein (6.4-8.2) g/dL Albumin (3.4-5.0) g/dL TSH (0.36-3.74) uIU/mL COVID-19 Source Not Applicable SARS-CoV-2 (PCR) (Negative) Negative Influenza Type A (PCR) (Negative) Negative Influenza Type B (PCR) (Negative) Negative RSV (PCR) (Negative) Negative Critical Care Time Critical Care Time Attestation: I have spent 35 minutes of critical care time with this critically ill patient.
[2022-02-03 10:20] LABS: D-Dimer 4320 ng/mlFEU (<500)
--- NOTE | 2022-02-03 10:30 | DI.US_ITS ---
Exam(s) US EXTREMITY VENOUS BI EXAM: US EXTREMITY VENOUS BI CLINICAL HISTORY: BLE edema, ?DVT. TECHNIQUE: Bilateral lower extremity venous ultrasound performed using grayscale, color-flow, and sp ectral Doppler analysis. COMPARISON: No exams were available for comparison FINDINGS: The bilateral common femoral, femoral and popliteal veins demonstrate normal compressibility, augment ation, and color Doppler. The posterior tibial veins are patent. IMPRESSION: Right: Negative for DVT Left: Negative for DVT DATA REPOSITORY:
[2022-02-03] MEDS: MAGNESIUM SULFATE 1 GM/100 ML BAG IVPB (10:55)
[2022-02-03] MEDS: POTASSIUM CHLORIDE 20 MEQ/100 ML BAG 50 MEQ IVPB ×2 (10:55→13:21)
--- NOTE | 2022-02-03 12:13 | W.PM.HP.N ---
Date of service: 02/03/22 Time of Service: 12:13 Assessment and Plan Assessment and plan (1) Sepsis: Status: Acute Assessment and plan: Source unclear. Need to r/o UTI/bacteremia. Started on empiric vancomycin, ceftriaxone, doxycycline. Will monitor above studies. Trend CRP, procalcitionin which are quite elevated. IVF boluses until euvolemic. (2) Atrial fibrillation with rapid ventricular response: Status: Acute Assessment and plan: In setting of sepsis. Converted to NSR. New diagnosis. TSH ok. Hydrate. Obtain echo. Start heparin gtt. Cardiac monitoring. Prn IV lopressor. (3) Hypotension: Status: Acute Assessment and plan: In setting of sepsis, dehydration, having recently received diltiazem. IVF, treat infection. (4) KEYLA (acute kidney injury): Status: Acute Assessment and plan: In setting of sepsis, clinical dehydration. Obtain UA, US renal, FENa, IVF. (5) Hypokalemia: Status: Acute Assessment and plan: Replete and recheck. Replete mag. (6) Elevated d-dimer: Status: Acute Assessment and plan: Await venous dopplers. (7) Hypomagnesemia: Status: Acute Assessment and plan: Replet eand recheck (8) Trigeminal neuralgia of right side of face: Status: Acute Assessment and plan: Trial gabapentin (9) DVT prophylaxis: Status: Acute Assessment and plan: Heparin gtt (10) Discharge planning issues: Status: Acute Assessment and plan: DNR/DNI as discussed with the patient. Admit to the ICU. History of Present Illness History of Present Illness Chief Complaint: Weakness, subjective fevers/chills, body aches, R-sided headache, SOB Narrative: Ms Najera is a 71 year old female with PMHx of HTN, hyperlipidemia, hypothyroidism, post-herpetic neuralgia in trigeminal distribution on the R in the past, who presented to [facility] ED today reporting 3 days of malaise/fatigue, subjective fevers/chills, generalized weakness, diffuse body aches, nausea without vomiting or diarrhea. The patient also describes chest pains yesterday (subcostal on the L) which happened at rest, shortness of breath at the time of presentation to ED - started at rest, per patient. She reports occasional R-sided headache which she is not having at the time of exam which is similar to the pain from shingles in the past. She denies a cough, runny nose, sore throat, dysuria. She does describe urinary dribbling and suprapubic discomfort. In the ED, the patient was in rapid Afib with HR in 180s. Her rhythm converted to sinus after receiving 10 mg of IV diltiazem, but then her SBPs went down to the 90s, necessitating IV fluid boluses. Hospitalists were asked to admit the patient for further evaluation. Review of Systems All systems reviewed & are unremarkable except as noted in HPI and below PFSH All Active Problems Sepsis (Acute) Hypotension (Acute) Trigeminal neuralgia of right side of face (Acute) Discharge planning issues (Acute) DVT prophylaxis (Acute) Hypomagnesemia (Acute) Elevated d-dimer (Acute) Hypokalemia (Acute) KEYLA (acute kidney injury) (Acute) Acute CHF (Acute) Atrial fibrillation with rapid ventricular response (Acute) Essential hypertension (Chronic) Hyperlipidemia (Chronic) Hypothyroidism (Chronic) Vaginal atrophy (Chronic 11/09/17) Rx with vaginal Estrogen cream. Expense of vaginal estrogen cream was an issue Chronic vulvitis (Chronic) Long-standing approximately 3 years duration 09/2017 briefly used vaginal Premarin and triamcinolone topical steroid with improvement. 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 Dermatitis (Acute) Chronic heartburn (Chronic) Advance directive declined by patient (Acute) Medical History (Updated 02/03/22 @ 13:43 by Shirley Nichols MD) Acute vulvitis 02/20/2019. Developed into lesions. PCR: HSV2. Patient advised to notify the office in the event of another flare Postherpetic neuralgia Surgical History S/P appendectomy S/P left oophorectomy For ovarian cyst S/P tonsillectomy and adenoidectomy S/P tubal ligation (~1978) Status post left shoulder hemiarthroplasty (03/30/17) Hemiarthroplasty left shoulder using humeral CAP prosthesis Family History Mother , at 87 Essential hypertension Heart disease Stroke Atrial fibrillation Father , at 78 Essential hypertension Heart disease Asthma Type 2 diabetes mellitus Chronic kidney disease Myocardial infarction Hyperlipidemia Brother No problems noted. Brother , at 54 Alcohol abuse Type 2 diabetes mellitus Hepatitis C Liver disease Sister Schizophrenia Hypothyroidism Son Schizophrenia Son Bipolar disorder Alcohol abuse Substance abuse Maternal Grandfather No problems noted. Maternal Grandmother Heart disease Paternal Grandfather No problems noted. Paternal Grandmother No problems noted. Social History (Updated 06/24/21 @ 15:57 by Ifeoma Richardson) Smoking/Tobacco Use Status: Never Second Hand Exposure: Yes Smoking risk assessment performed?: Yes Alcohol Intake: never Drug use: Never Substance use type: does not use Household members: children Housing: house Pets and animals: Yes Pets and animals: cat(s) Sexually active: No Do you think of yourself as: straight/heterosexual Current gender identity: male and decline to answer What is your relationship status?: How often do you talk on the phone with friends or family?: decline to answer How often do you get together with friends or relatives?: decline to answer How often do you attend confucianism or methodist services?: decline to answer Do you belong to any clubs or organized social groups?: no Panel score (0-1 are the most socially isolated patients): 0 What type of physical activity do you participate in: walking Duration: < 15 minutes/day Frequency: daily Gill/Restorationist: Scientology Special gill needs: No Seatbelt use: always Helmet use: No Drive intox or ride w/intox party bus driver: No Do you feel safe at home: Yes Do you feel safe in your relationship?: Yes Female Reproductive History Menstrual Menopause type: natural Date of menopause: 03/23/95 History History 2 Para 2 Hx # Term Pregnancies Multiple births Hx # Pregnancies Ectopic pregnancies AB induced Hx Number of Living Children 2 AB spontaneous Meds Allergies and Home Medications Allergies Allergy/AdvReac Type Severity Reaction Status Date / Time tramadol AdvReac Intermediate Nausea, Verified 02/03/22 09:04 dizziness lisinopril AdvReac Mild COUGH Verified 02/03/22 09:04 Home Medications Medication Instructions Recorded Confirmed Type acetaminophen 500 mg tablet 1,000 mg PO BID PRN 01/03/19 01/08/22 History ibuprofen 600 mg tablet 600 mg PO TID PRN pain #180 tabs 01/03/19 01/08/22 Rx levothyroxine 75 mcg tablet 75 mcg PO DAILY #90 tab-caps 12/13/20 01/08/22 Rx rosuvastatin 10 mg tablet 10 mg PO DAILY #90 tabs 12/13/20 01/08/22 Rx doxepin 25 mg capsule 25 mg PO QHS #30 caps 01/08/22 01/08/22 Rx halobetasol propionate 0.05 % 1 applic topical BID PRN for hand 01/08/22 01/08/22 Rx topical ointment eczema #15 grams triamcinolone acetonide 0.5 % 1 applic topical BID dermatitis 01/08/22 01/08/22 Rx topical cream #45 grams losartan 100 mg tablet 100 mg PO DAILY #90 tabs 01/10/22 Rx Exam Narrative Exam Narrative: General: Elderly female who is A&Ox3, appears to not be feeling well. Tired. Neurological: A&ox3, no focal deficits, no lesions on R-side of the face or external R ear Psychiatric: appears to have a flat affect Skin: Visible skin intact with the exception of healing excoriations/dry skin RLE HEENT: Atraumatic, normocephalic, EOMI, MMM, clear oropharynx with the exception of white film on tongue, no submandibular or cervical lymphadenopathy, no goiter or JVD Cardiovascular: RRR, +BETH Lungs: CTAB anteriorly (getting an EKG done) Gastrointestinal: soft, nontender, nondistended Genitourinary: deferred Extremities: trace edema BLEs, 2+ pedal pulses B, BLE warm Results Imaging Additional studies: CT head w/o contrast: No acute intracranial process. CXR: No acute abnormality.? EKG: Afib, HR 157, nonspecific diffuse ST-T changes Labs Result diagrams: 02/03/22 09:18 02/03/22 09:18 Labs: Laboratory Results - last 24 hr 02/03/22 02/03/22 02/03/22 09:18 09:18 09:18 WBC 12.80 H RBC 4.40 Hgb 13.1 Hct 39.6 MCV 90 MCH 29.8 MCHC 33.1 RDW 12.4 Plt Count 219 MPV 10.6 Immature Gran % 0.0 Neutrophils % 87.0 Band Neutrophils % 0 Lymphocytes % 8.0 Atypical Lymphs % 0 Monocytes % 5.0 Eosinophils % 0.0 Basophils % 0.0 Nucleated RBC % 0.0 Absolute Neutrophils 11.14 H Absolute Lymphocytes 1.02 L Absolute Monocytes 0.64 Absolute Eosinophils 0.00 Absolute Basophils 0.00 RBC Morphology Normal D-Dimer 4320 H VBG Lactate Sodium 136 Potassium 2.7 L* Chloride 95 L Carbon Dioxide 24.0 Anion Gap 17.0 H BUN 43 H Creatinine 3.7 H* Est GFR (CKD-EPI 2020) 12.38 Glucose 133 H Calcium 8.9 Magnesium 1.7 L Total Bilirubin 1.1 H AST 44 H ALT 34 Alkaline Phosphatase 135 H Troponin I < 50 NT-Pro-B Natriuret Pep 1791 H Total Protein 8.2 Albumin 3.1 L TSH 0.54 COVID-19 Source SARS-CoV-2 (PCR) Influenza Type A (PCR) Influenza Type B (PCR) RSV (PCR) 02/03/22 02/03/22 02/03/22 09:18 09:18 09:35 WBC RBC Hgb Hct MCV MCH MCHC RDW Plt Count MPV Immature Gran % Neutrophils % Band Neutrophils % Lymphocytes % Atypical Lymphs % Monocytes % Eosinophils % Basophils % Nucleated RBC % Absolute Neutrophils Absolute Lymphocytes Absolute Monocytes Absolute Eosinophils Absolute Basophils RBC Morphology D-Dimer VBG Lactate 1.8 H Sodium Potassium Chloride Carbon Dioxide Anion Gap BUN Creatinine Est GFR (CKD-EPI 2020) Glucose Calcium Magnesium Cancelled Total Bilirubin AST ALT Alkaline Phosphatase Troponin I NT-Pro-B Natriuret Pep Total Protein Albumin TSH COVID-19 Source Not Applicable SARS-CoV-2 (PCR) Negative Influenza Type A (PCR) Negative Influenza Type B (PCR) Negative RSV (PCR) Negative Last Vital Signs Temp 36.7 C 02/03/22 08:54 Pulse 85 02/03/22 11:17 Resp 17 02/03/22 11:17 BP 82/48 L 02/03/22 11:17 Pulse Ox 96 02/03/22 09:01
--- NOTE | 2022-02-03 12:15 | RT.EKG_ITS ---
APPROVED REPORT Exam: Resting ECG Reason for Exam: Afib, converted to NSR Patient Location: I HR:83 bpm ECG Measurements Heart Rate 83 AXIS MT 193 P 70 QRSd 84 QRS 55 QT 355 T 5 QTc 418 Conclusion Sinus rhythm...normal P axis, V-rate 50- 99 Atrial premature complexes...SV complexes w/ short R-R intvls
[2022-02-03] MEDS: Lactated Ringers 500 ML IV (12:28)
[2022-02-03 12:43] LABS: Lab Add On Test DONE
[2022-02-03 13:17] LABS: C-Reactive Protein > 25.00 mg/dL (0.0-0.3)
[2022-02-03 13:21] LABS: Procalcitonin 20.1 ng/mL
--- NOTE | 2022-02-03 13:21 | DI.US_ITS ---
APPROVED REPORT EXAM: Comprehensive 2D, Doppler, and color-flow Echocardiogram Patient Location: In-Patient Room/Bed: [id number] Ship Scaler: Vanna Freeman RDCS (AE) Indications: New onset A Fib Other Information Study Quality: Fair. Technically limited study due to body habitus, inability to position patient exa m done beside icu supine. Conclusion Normal left ventricular wall thickness and chamber size. Estimated ejection fraction is 55 to 60%. Wall motion is normal Normal right ventricular size and systolic function Both atria are normal in size There is no structural or hemodynamically significant valvular disease Estimated right ventricular systolic pressure is 23 mmHg Patient was in sinus rhythm throughout the study Wall motion Left Ventricle The left ventricle is normal size. The overall left ventricular systolic function appears normal. The re is normal left ventricular wall thickness. There is normal LV segmental wall motion. There is no v entricular septal defect visualized. LVEF is 57%. Right Ventricle The right ventricle is normal size. The right ventricular systolic function is normal. The RVSP is 22 .8 mmHg. Atria The left atrium size is normal. The right atrium size is normal. The interatrial septum is intact wit h no evidence for an atrial septal defect. Aortic Valve The aortic valve is normal in structure. There is no aortic valvular stenosis. No aortic regurgitatio n is present. Mitral Valve The mitral valve is normal in structure. No evidence of mitral valve stenosis. Trace mitral regurgita tion. Tricuspid Valve The tricuspid valve is normal in structure. There is no tricuspid valve stenosis. Trace tricuspid reg urgitation. Pulmonic Valve Pulmonic valve is not well visualized. There is no pulmonic valvular stenosis. There is no pulmonic v alvular regurgitation. Great Vessels The aortic root is normal in size. Ascending aorta is not well visualized. Aortic arch is normal in c aliber. IVC is normal in size and collapses >50% with inspiration. Pericardium There is no pericardial effusion. 2D Dimensions IVSD d PLAX 1.00 cm F: 0.6-1.0 LV Vol A2C d MOD 54.0 mL LVPW d PLAX 1.00 cm F: 0.6 - 1.0 LV Vol A4C d MOD 52.9 mL LVID d PLAX 4.13 cm F: 3.8 - 5.2 LA vol/ BSA A2C s A-L 18.2 mL/m2 LVDs 2.95 cm F: 2.2 - 3.5 LA vol/ BSA A4C s A-L 21.4 mL/m2 Ao Root d 3.00 cm F: 2.7 - 3.3 LA Vol/ BSA Biplane s A-L 21.3 mL/m2 LV EF Teichholz 54.1 % LA Area A4C s MOD 15.09 cm2 LVEF (Romero's) 56.53 % F: 54 - 74 LA Area A2C s MOD 12.92 cm2 LV Volume 43.23 mL F: 46 - 106 LV EF A4C MOD 57.5 % LV Volume Index 25.73 mL/m2 F: 29 - 61 LV EF A2C MOD 56.7 % LV Vol Biplane MOD 54.3 mL LV EF Biplane MOD 56.5 % FS 27.65 % SV 30.69 mL SV Index 18.19 mL/m2 LV Diastology MV E' medial 0.086 (>0.07 m/s) E/A Ratio 1.0 LV E/e MED 9.10 (<14) MV E Vmax 0.78 (0.4-1.3 m/s) MV E' lateral 0.094 (>0.1 m/s) MV A Vmax 0.75 (0.4-1.3 m/s) LV E/e LAT 8.30 (<14) MV E/A Ratio 1.00 MV E/E' medial 9.10 MV E/E' lateral 8.31 Aortic Valve LVOT Area 2.98 cm2 AoV Area Vmax 1.98 cm2 LVOT Vmax 0.94 m/s AoV Area/ BSA (Vmax) 1.18 cm2/m2 LVOT Mean Graeme. 0.58 m/s DAVID Mean Graeme. 1.81 cm2 LVOT Peak Grad 3.5 mmHg DAVID Mean Graeme. Index 1.07 cm2/m2 LVOT Mean Grad 1.6 mmHg LVOT VTI 0.197 m LVOT Diam s 1.90 cm AoV Vmax 1.41 m/s Velocity Ratio 0.66 AoV Mean Graeme. 0.96 m/s AoV Peak Grad 8.0 mmHg LVOT SV 58.72 mL AoV Mean Grad 4.1 mmHg AoV VTI 0.265 m AoV Area VTI 2.22 cm2 AoV Area/ BSA (VTI) 1.31 cm/m2 Mitral Valve MV DT 196 (160-240 msec) MV PHT 57 msec MV Area PHT 3.87 cm2 MV VTI 0.258 m MV Area VTI 2.28 (4.0-6.0 cm2) Pulmonary Valve PV Vmax 1.03 (0.5-1.5 m/s) RVOT Peak Gr. 3.00 mmHg PV Peak Grad 4.2 mmHg RVOT Mean Gr. 1.70 mmHg PV Mean Grad 2.3 mmHg RVOT VTI 0.212 m PV VTI 0.207 m RVOT Vmax 0.87 m/s Tricuspid Valve TR Peak Grad 19.7 mmHg TR Vmax 2.22 m/s RA Pressure 3.00 mmHg RVSP (TR) 22.8 mmHg
[2022-02-03 13:51] LABS: INR 1.1 (0.9-1.1); Prothrombin Time 10.7 sec (9.3-11.0)
[2022-02-03 14:05] LABS: Troponin I 62 ng/L (<or=60)
[2022-02-03] MEDS: cefTRIAXone 2 GM/50 ML BAG IVPB (14:37)
[2022-02-03] MEDS: Gabapentin 300 MG CAP PO (14:41)
[2022-02-03 15:04] LABS: Bilirubin Small (Negative); Blood Moderate (Negative); Clarity Cloudy (Clear); Glucose Negative (Negative); Ketones Negative (Negative); Leukocyte Esterase Moderate (Negative); Nitrite Negative (Negative); Specific Gravity 1.025 (1.005-1.025)
[2022-02-03 15:13] LABS: Epithelial Cells Few HPF (Negative); Other Cells Few Renal (Negative); RBC >50 HPF (0-2); WBC >50 HPF (0-5)
[2022-02-03 15:14] LABS: Bacteria Many HPF (Negative); C & S Indicated? Yes; Casts Negative LPF (Negative); Crystals Negative HPF (Negative); Mucus Moderate (Negative)
[2022-02-03] MEDS: DOXYCYCLINE 100 MG in Normal Saline 100 ML IVPB (15:27)
--- NOTE | 2022-02-03 16:15 | RT.EKG_ITS ---
APPROVED REPORT Exam: Resting ECG Reason for Exam: chest pain Patient Location: I HR:86 bpm ECG Measurements Heart Rate 86 AXIS CO 211 P 71 QRSd 86 QRS 31 QT 356 T -11 QTc 426 Conclusion Sinus rhythm...normal P axis, V-rate 50- 99 Low voltage, precordial leads...precordial leads <1.0mV
[2022-02-03 16:54] LABS: Troponin I 71 ng/L (<or=60)
[2022-02-03] MEDS: VANCOMYCIN/WATER (PEG) 1.25 GM/250 ML BAG IV (17:13)
[2022-02-03] MEDS: Acetaminophen 325 MG TAB PO (17:19)
[2022-02-03 22:04] LABS: PTT Activated 49.9 sec (21.0-27.5)
[2022-02-04] VITALS (11 sets, daily range): BP systolic 92–125; BP diastolic 58–71; PULSE 75–115; RESP 16–18; TEMP 36.9–38.9; O2SAT 95–100
[2022-02-04] MEDS: Acetaminophen 325 MG TAB PO ×2 (01:40→10:34)
[2022-02-04] MEDS: DOXYCYCLINE 100 MG in Normal Saline 100 ML IVPB (01:44)
[2022-02-04] MEDS: Normal Saline 500 ML 35 ML IV (01:44)
[2022-02-04] MEDS: Levothyroxine 75 MCG TAB PO (06:45)
[2022-02-04 07:02] LABS: Abs Immature Grans 0.04 10^3/uL (0.0-0.06); Absolute Basophil Count 0.04 10^3/uL (0.0-0.2); Absolute Eosinophil Count 0.02 10^3/uL (0.0-0.7); Absolute Lymphocyte Count 0.96 10^3/uL (1.2-3.4); Absolute Monocyte Count 0.85 10^3/uL (0.1-0.8); Absolute Neutrophil Count 7.84 10^3/uL (1.2-6.7); Basophils % 0.4; Eosinophils % 0.2; HCT 32.2 % (36.0-46.0); HGB 10.6 g/dL (11.2-15.7); Immature Grans % 0.4; Lymphocytes % 9.8; MCH 29.8 pg (27.0-33.0); MCHC 32.9 % (32.0-36.0); MCV 90 fL (80-95); MPV 10.5 fL (8.0-11.0); Monocytes % 8.7; Neutrophils % 80.5; Platelet Count 203 10^3/uL (130-400); RBC 3.56 10^6/uL (3.93-5.22); RDW 12.9 % (11.7-14.6); RDW-SD 42.9 fL; WBC 9.75 10^3/uL (4.4-10.8)
[2022-02-04 07:14] LABS: Anion Gap 13.2 mmol/L (3-11); BUN 50 mg/dL (7-18); CO2 22.8 mmol/L (21.0-32.0); CREATININE 3.2 mg/dL (0.55-1.02); Calcium 8.5 mg/dL (8.5-10.1); Chloride 100 mmol/L (98-107); Estimated GFR 14.73 (mL/min/1.73m2); Glucose 100 mg/dL (74-106); Sodium 136 mmol/L (136-145)
[2022-02-04 07:15] LABS: PTT Activated 45.5 sec (21.0-27.5)
[2022-02-04 07:22] LABS: Calculated LDL 15 mg/dL (<100); Cholesterol 73 mg/dL (<200); HDL Cholesterol 12 mg/dL (40-60); Magnesium 1.9 mg/dL (1.8-2.4); Triglyceride 234 mg/dL (<150)
[2022-02-04 07:27] LABS: Troponin I 64 ng/L (<or=60)
[2022-02-04 07:32] LABS: Sodium, Urine 27 mmol/L
--- NOTE | 2022-02-04 09:17 | PDOC.CMIN ---
- If Service Date Differs Date of service: 02/04/22 Time of Service: 09:17 Care Management Initial Assess REASON FOR HOSPITALIZATION:: Sepsis PAST MEDICAL HISTORY/PAST SURGICAL HISTORY:: All Active Problems. Sepsis (Acute). Hypotension (Acute). Trigeminal neuralgia of right side of face (Acute). Discharge planning issues (Acute). DVT prophylaxis (Acute). Hypomagnesemia (Acute). Elevated d-dimer (Acute). Hypokalemia (Acute). KEYLA (acute kidney injury) (Acute). Acute CHF (Acute). Atrial fibrillation with rapid ventricular response (Acute). Essential hypertension (Chronic). Hyperlipidemia (Chronic). Hypothyroidism (Chronic). Vaginal atrophy (Chronic 11/09/17). Rx with vaginal Estrogen cream. Expense of vaginal estrogen cream was an issue. Chronic vulvitis (Chronic). Long-standing approximately 3 years duration 09/2017 briefly used vaginal Premarin and triamcinolone topical steroid with improvement. Generalized anxiety disorder (Chronic). Prediabetes (Chronic). Shingles (herpes zoster) polyneuropathy (Chronic). improved with gabapentin. 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 Resolved without treatment. Dermatitis (Acute). Chronic heartburn (Chronic). Advance directive declined by patient (Acute). Medical History (Updated 02/03/22 @ 13:43 by Shirley Nichols MD). Acute vulvitis. 02/20/2019. Developed into lesions. PCR: HSV2. Patient advised to notify the office in the event of another flare. Postherpetic neuralgia. Surgical History . S/P appendectomy. S/P left oophorectomy. For ovarian cyst. S/P tonsillectomy and adenoidectomy. S/P tubal ligation (~1978). Status post left shoulder hemiarthroplasty (03/30/17). Hemiarthroplasty left shoulder using humeral CAP prosthesis PREVIOUS FUNCTIONAL STATUS/SOCIAL/FAMILY SUPPORTS:: Sujata is a 71 y.o. woman who resides in a mobile home in [place] with her son Zion. She also has a son Jean who lives locally and is supportive. 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 She is independent at baseline and does not receive any community services. CURRENT FUNCTIONAL STATUS:: Sujata was lying in bed when CM met with her. She was polite and agreeable to conversation but was not overly talkative. Sujata explained that she was really nauseated, so CM kept he conversation brief. Clinically, Sujata remains quite ill. She has gram negative bacteremia and new onset of afib which is now rate controlled. Sujata has also been having pain both from the sepsis in general and from post herpetic neuralgia following a case of shingles.She was started on neurontin for the neuralgia and analgesics (Percocet) for the generalized pain. She remains hypotensive but improved from yesterday and has a heart rate in the 80s to 90s. ADVANCE DIRECTIVES:: none on file Has patient been provided with info about the portal/API?: Yes Did the patient sign up for the portal?: No CODE STATUS:: DNR/DNI INSURANCE COVERAGE / FINANCIAL ISSUES:: Medicare. Medicaid (QA) CURRENT HOME/COMMUNITY SERVICES/EQUIPMENT:: none PRIMARY CARE PHYSICIAN:: Teofilo Rivera POTENTIAL DISCHARGE NEEDS:: follow up with community providers and plan of care PATIENT/FAMILY EDUCATION NEEDS:: Review of discharge instructions, follow up plan, activity, limitations, discuss Ask Me Three TRANSPORTATION:: via private vehicle with family PLAN:: Anticipate Sujata will discharge home with no new services when medically cleared by provider. She will follow up with her community providers including her PCP and Cardiology and transport with family. CM will continue to support Sujata and assess for discharge concerns.
[2022-02-04] MEDS: Normal Saline Flush 10 ML SYR IVP ×3 (11:34→13:45)
[2022-02-04] MEDS: cefTRIAXone 2 GM/50 ML BAG IVPB (11:34)
[2022-02-04] MEDS: Potassium Chloride 20 MEQ TABCR 40 MEQ PO (11:34)
[2022-02-04] MEDS: oxyCODONE 5 mg/Acetaminophen 325 mg TAB 1 TAB PO (12:58)
[2022-02-04] MEDS: Pantoprazole 40 MG VIAL IVP (13:46)
[2022-02-04] MEDS: Ondansetron 4 MG/2 ML VIAL IVP (13:46)
[2022-02-04] MEDS: Gabapentin 300 MG CAP PO (13:46)
--- NOTE | 2022-02-04 14:37 | PGE_ITS ---
Date of Service Date of service: 02/04/22 Time of Service: 14:37 Assessment and Plan Assessment and plan (1) Sepsis: Status: Acute Assessment and plan: With GNR bacteremia presumably due to a UTI, present on admission. Antibiotics simplified to ceftriaxone 2 grams q24 hrs, which we will continue. Vanco/doxycycline d/c'ed. No evidence of pathology on ultrasound. Trend CRP, procalcitionin. Resume IVF as still clinically dry. Repeat blood cultures in am. (2) Atrial fibrillation with rapid ventricular response: Status: Acute Assessment and plan: In setting of sepsis. Converted to NSR. New diagnosis. TSH ok. Continue IV hydration, antibiotics. Echo w/o significant valvular abnormalities, LVEF of 55-60%, RVSP of 23 mmHg. Continue heparin gtt. Discussed need for anticoagulation as outpatient. CHADSVASC score of 3. Continue tele. Prn IV lopressor. (3) Hypotension: Status: Acute Assessment and plan: In setting of sepsis, dehydration, having recently received diltiazem. IVF resumed, treat infection. (4) KEYLA (acute kidney injury): Status: Acute Assessment and plan: In setting of sepsis, UTI, clinical dehydration, hypoperfusion from Afib. Improved, but not back to baseline. Continue IVF. US renal does not have any evidence of obstructive pathology or stones. FeNA 3.2% which could be reflective of intrinsic injury as well. (5) Hypokalemia: Status: Acute Assessment and plan: Replete and recheck. (6) Elevated d-dimer: Status: Acute Assessment and plan: Likely reactive finding due to sepsis. Venous dopplers negative. (7) Hypomagnesemia: Status: Resolved Assessment and plan: Recheck in am. (8) Trigeminal neuralgia of right side of face: Status: Acute Assessment and plan: Continue gabapentin (9) DVT prophylaxis: Status: Acute Assessment and plan: Heparin gtt (10) Discharge planning issues: Status: Acute Assessment and plan: DNR/DNI as discussed with the patient. Transferred to medical surgical floor on day of admission (02/03/22). Continues to require hospitalization Subjective Subjective Interval history since last seen: Ms Najera states that she is not feeling much better yet. She continues to have diffuse aches and pains. Her pain level is 4. Denies dizziness, chest pain, shortness of breath, nausea. We discussed her positive blood cultures. Her family was in the room and participated in the conversation. Exam Narrative Exam Narrative: General: Elderly female who is A&Ox3, appears to not be feeling well - about the same as yesterday HEENT: EOMI, MMM Cardiovascular: RRR, I did not appreciate the murmur today Lungs: faint crackles at B bases Gastrointestinal: soft, nontender, nondistended Extremities: no edema BLEs, 2+ pedal pulses B, BLE warm Objective Last Vital Signs Temp 38.1 C H 02/04/22 13:28 Pulse 92 H 02/04/22 13:28 Resp 17 02/04/22 13:28 BP 99/66 L 02/04/22 13:28 Pulse Ox 95 02/04/22 13:28 Laboratory Results - last 24 hr 02/03/22 02/03/22 02/03/22 14:30 16:20 21:44 WBC RBC Hgb Hct MCV MCH MCHC RDW Plt Count MPV Immature Gran % Neutrophils % Lymphocytes % Monocytes % Eosinophils % Basophils % Nucleated RBC % Absolute Neutrophils Absolute Lymphocytes Absolute Monocytes Absolute Eosinophils Absolute Basophils APTT 49.9 H Sodium Potassium Chloride Carbon Dioxide Anion Gap BUN Creatinine Est GFR (CKD-EPI 2020) Glucose Calcium Magnesium Troponin I 71 H* Triglycerides Total Cholesterol LDL Cholesterol, Calc HDL Cholesterol Urine Color Yellow Urine Clarity Cloudy Urine pH 6.0 Ur Specific [place] 1.025 Urine Protein 100 H Urine Ketones Negative Urine Blood Moderate H Urine Nitrite Negative Urine Bilirubin Small H Urine Urobilinogen 1.0 H Ur Leukocyte Esterase Moderate H Urine RBC >50 H Urine WBC >50 H Ur Epithelial Cells Few Urine Crystals Negative Urine Bacteria Many Urine Casts Negative Urine Mucus Moderate Urine Other Few Renal Ur Culture Indicated? Yes Ur Random Creatinine Ur Random Sodium Urine Glucose Negative 02/04/22 02/04/22 02/04/22 06:30 06:50 06:50 WBC RBC Hgb Hct MCV MCH MCHC RDW Plt Count MPV Immature Gran % Neutrophils % Lymphocytes % Monocytes % Eosinophils % Basophils % Nucleated RBC % Absolute Neutrophils Absolute Lymphocytes Absolute Monocytes Absolute Eosinophils Absolute Basophils APTT Sodium 136 Potassium 3.0 L Chloride 100 Carbon Dioxide 22.8 Anion Gap 13.2 H BUN 50 H Creatinine 3.2 H Est GFR (CKD-EPI 2020) 14.73 Glucose 100 Calcium 8.5 Magnesium 1.9 Troponin I 64 H* Triglycerides 234 H Total Cholesterol 73 LDL Cholesterol, Calc 15 HDL Cholesterol 12 L Urine Color Urine Clarity Urine pH Ur Specific [place] Urine Protein Urine Ketones Urine Blood Urine Nitrite Urine Bilirubin Urine Urobilinogen Ur Leukocyte Esterase Urine RBC Urine WBC Ur Epithelial Cells Urine Crystals Urine Bacteria Urine Casts Urine Mucus Urine Other Ur Culture Indicated? Ur Random Creatinine 66.00 Ur Random Sodium 27 Urine Glucose 02/04/22 02/04/22 06:50 06:50 WBC 9.75 RBC 3.56 L Hgb 10.6 L D Hct 32.2 L MCV 90 MCH 29.8 MCHC 32.9 RDW 12.9 Plt Count 203 MPV 10.5 Immature Gran % 0.4 Neutrophils % 80.5 Lymphocytes % 9.8 Monocytes % 8.7 Eosinophils % 0.2 Basophils % 0.4 Nucleated RBC % 0.0 Absolute Neutrophils 7.84 H Absolute Lymphocytes 0.96 L Absolute Monocytes 0.85 H Absolute Eosinophils 0.02 Absolute Basophils 0.04 APTT 45.5 H Sodium Potassium Chloride Carbon Dioxide Anion Gap BUN Creatinine Est GFR (CKD-EPI 2020) Glucose Calcium Magnesium Troponin I Triglycerides Total Cholesterol LDL Cholesterol, Calc HDL Cholesterol Urine Color Urine Clarity Urine pH Ur Specific [place] Urine Protein Urine Ketones Urine Blood Urine Nitrite Urine Bilirubin Urine Urobilinogen Ur Leukocyte Esterase Urine RBC Urine WBC Ur Epithelial Cells Urine Crystals Urine Bacteria Urine Casts Urine Mucus Urine Other Ur Culture Indicated? Ur Random Creatinine Ur Random Sodium Urine Glucose
--- NOTE | 2022-02-04 15:41 | CHAPLAIN ---
Sujata was in bed when I visited. She immediately asked for a prayer. She said she hadn't been feeling well the past few days and ended up in the ED and has an infection. She has a son who lives with her who is on disability. She has a brother who lives out of the area, and a sister. Sujata said she is waiting for the IV antibiotics do work on her infection and will be here overnight and possibly longer. I will continue to visit.
--- NOTE | 2022-02-04 21:00 | DI.RAD_ITS ---
Exam(s) XR PORTABLE CHEST AP EXAM: XR PORTABLE CHEST AP CLINICAL HISTORY: crackles in the lungs TECHNIQUE: 2D digital imaging was performed. COMPARISON: CR XR CHEST 2V PA LATERAL from 02/03/2022 FINDINGS: Leads overlie the chest. The heart size is within normal limits. The aorta is slightly tortuous. L ungs are grossly clear. Left shoulder prosthesis is noted. IMPRESSION: No acute findings. DATA REPOSITORY: RADIATION DOSE DELIVERED:
[2022-02-04] MEDS: Carbamide Peroxide 15 ML BTL AU (21:14)
[2022-02-04] MEDS: Rosuvastatin 10 MG TAB PO (21:17)
--- NOTE | 2022-02-04 21:22 | DI.VRAD_ITS ---
PROCEDURE INFORMATION: Exam: XR Chest Exam date and time: 02/04/2022 8:55 PM Age: 71 years old Clinical indication: Other: Crackles in the lungs; Prior surgery; Surgery date: 6+ months; Surgery type: Shoulder surgery TECHNIQUE: Imaging protocol: Radiologic exam of the chest. Views: 1 view. COMPARISON: CR XR CHEST 2V PA LATERAL 02/03/2022 10:45 AM FINDINGS: Lungs: Mild interstitial prominence. No consolidation. Pleural spaces: No pleural effusion. No pneumothorax. Heart/Mediastinum: Mild cardiomegaly. Bones/joints: Left shoulder arthroplasty IMPRESSION: Mild interstitial prominence which may represent mild pneumonitis/edema Dictated and Authenticated by: Antoine Day MD. Ordering:KRISTIAN Watson MD
[2022-02-05] VITALS (9 sets, daily range): BP systolic 93–119; BP diastolic 58–74; PULSE 70–84; RESP 16–21; TEMP 36.7–38.3; O2SAT 94–97
[2022-02-05] MEDS: Levothyroxine 75 MCG TAB PO (05:30)
[2022-02-05 06:39] LABS: Abs Immature Grans 0.08 10^3/uL (0.0-0.06); Absolute Basophil Count 0.05 10^3/uL (0.0-0.2); Absolute Eosinophil Count 0.11 10^3/uL (0.0-0.7); Absolute Lymphocyte Count 0.99 10^3/uL (1.2-3.4); Absolute Monocyte Count 0.83 10^3/uL (0.1-0.8); Absolute Neutrophil Count 5.88 10^3/uL (1.2-6.7); Basophils % 0.6; Eosinophils % 1.4; HCT 31.5 % (36.0-46.0); HGB 10.4 g/dL (11.2-15.7); Lymphocytes % 12.5; MCH 30.1 pg (27.0-33.0); MCV 91 fL (80-95); MPV 10.5 fL (8.0-11.0); Monocytes % 10.5; Platelet Count 228 10^3/uL (130-400); RBC 3.46 10^6/uL (3.93-5.22); RDW 13.3 % (11.7-14.6); RDW-SD 44.5 fL; WBC 7.94 10^3/uL (4.4-10.8)
[2022-02-05 06:46] LABS: PTT Activated 41.3 sec (21.0-27.5)
[2022-02-05 07:04] LABS: Anion Gap 9.6 mmol/L (3-11); BUN 43 mg/dL (7-18); CO2 25.4 mmol/L (21.0-32.0); CREATININE 2.3 mg/dL (0.55-1.02); Calcium 8.5 mg/dL (8.5-10.1); Chloride 105 mmol/L (98-107); Glucose 113 mg/dL (74-106); Potassium 3.7 mmol/L (3.5-5.1); Sodium 140 mmol/L (136-145)
[2022-02-05 07:05] LABS: C-Reactive Protein > 25.00 mg/dL (0.0-0.3)
[2022-02-05] MEDS: Pantoprazole 40 MG TABCR PO (08:38)
[2022-02-05] MEDS: Carbamide Peroxide 15 ML BTL AU ×2 (08:38→19:27)
[2022-02-05] MEDS: Acetaminophen 325 MG TAB PO (08:44)
--- NOTE | 2022-02-05 09:35 | CMPROGNOTE_ITS ---
- If Service Date Differs Date of service: 02/05/22 Time of Service: 09:35 Care Management Progress Note S/O:Sujata was sitting up in bed when CM met with her. She appeared much brighter and stated that she thinks she is finally starting to feel a bit better. She proudly announced she had been able to eat a half a sandwich for the first time in several days. Sujata also informed CM that her pain is better controlled with the medicine she is receiving. Sujata talked a bit about her family and the fact that her son who lives with her has schizophrenia and her sister has bipolar disease. She has been a single parent since the age of 25 and has also taken care of her sister off and on. She is her DPOA and ensures that she is well cared for; she is currently in an adult family long term. Sujata has EColi in her urine and is growing gram negative rods in her blood cultures from 02/03/22. Additional blood cultures were drawn today and are pending. A:Sujata is a 71 year old 3woman admitted on 02/03/22 with CHF and KEYLA P:Anticipate Sujata will discharge home with no new services when medically cleared by provider. She will follow up with her community providers including her PCP and Cardiology and transport with family. CM will continue to support Sujata and assess for discharge concerns.
[2022-02-05] MEDS: cefTRIAXone 2 GM/50 ML BAG IVPB (12:57)
[2022-02-05] MEDS: Gabapentin 300 MG CAP PO (13:05)
[2022-02-05 14:29] LABS: PTT Activated 47.8 sec (21.0-27.5)
--- NOTE | 2022-02-05 16:44 | CHAPLAIN ---
Sujata was up in the chair when I visited. She said she is beginning to feel better. She asked that I pray with her. I will continue to visit.
--- NOTE | 2022-02-05 17:56 | W.PM.PROGNOT ---
Date of Service Date of service: 02/05/22 Time of Service: 17:56 Assessment and Plan Assessment and plan (1) Sepsis: Status: Acute Assessment and plan: With GNR bacteremia presumably due to a UTI, present on admission. Repeat blood cultures pending. Original blood cultures have not yet speciated. continue ceftriaxone 2 grams q24 hrs, Vanco/doxycycline d/c'ed. No evidence of pathology on ultrasound. Trend CRP, procalcitionin. At this point, would not continue IVF. Await results of blood cx. (2) Atrial fibrillation with rapid ventricular response: Status: Acute Assessment and plan: In setting of sepsis. Converted to NSR. New diagnosis. TSH ok. Continue IV hydration, antibiotics, heparin gtt. Echo w/o significant valvular abnormalities, LVEF of 55-60%, RVSP of 23 mmHg. CHADSVASC score of 3. Continue tele. Prn IV lopressor. Will need an MPI stress test and a cardiac event recorder as outpatient. (3) Hypotension: Status: Acute Assessment and plan: In setting of sepsis, dehydration, having recently received diltiazem. Relatively asymptomatic today, but BPs still borderline. I suspect this has to do with endotoxin release from GNR as they lyse. The patient does have crackles and is more edematous today. I encouraged her to drink more water but avoiding MIVF at this time. (4) KEYLA (acute kidney injury): Status: Acute Assessment and plan: In setting of sepsis, UTI, clinical dehydration, hypoperfusion from Afib. Improved, but not back to baseline. Unable to tolerate any more IVF. US renal does not have any evidence of obstructive pathology or stones. FeNA 3.2% which could be reflective of intrinsic injury as well. May require diuresis, but for now will encourage PO fluids and monitor Cr. (5) Hypokalemia: Status: Resolved Assessment and plan: Recheck in am. (6) Elevated d-dimer: Status: Acute Assessment and plan: Likely reactive finding due to sepsis. Venous dopplers negative. We did not perform a CTA due to lack of pulmonary sx. (7) Hypomagnesemia: Status: Resolved Assessment and plan: Recheck in am. (8) Trigeminal neuralgia of right side of face: Status: Acute Assessment and plan: Continue gabapentin (9) DVT prophylaxis: Status: Acute Assessment and plan: Heparin gtt (10) Discharge planning issues: Status: Acute Assessment and plan: DNR/DNI as discussed with the patient. Transferred to medical surgical floor on day of admission (02/03/22). Continues to require hospitalization. Called Jannet and left a voice mail. Subjective Subjective Interval history since last seen: Ms Najera states that she is feeling a little bit better. She got her taste buds back and is eating a little bit better. Constipated. Dizzy when got up to walk to the bathroom. No CP/SOB. No nausea. Exam Narrative Exam Narrative: General: Elderly female who is A&Ox3, looks a little better than yesterday HEENT: EOMI, MMM Cardiovascular: RRR, no m/r/g Lungs: faint crackles at B bases, R>L Gastrointestinal: soft, nontender, nondistended Extremities: trace edema BLEs, 2+ pedal pulses B, BLE warm Objective Last Vital Signs Temp 37.3 C 02/05/22 15:05 Pulse 77 02/05/22 15:05 Resp 16 02/05/22 15:05 BP 93/59 L 02/05/22 15:05 Pulse Ox 97 02/05/22 15:05 Laboratory Results - last 24 hr 02/05/22 02/05/22 02/05/22 06:15 06:15 06:15 WBC 7.94 RBC 3.46 L Hgb 10.4 L Hct 31.5 L MCV 91 MCH 30.1 MCHC 33.0 RDW 13.3 Plt Count 228 MPV 10.5 Immature Gran % 1.0 Neutrophils % 74.0 Lymphocytes % 12.5 Monocytes % 10.5 Eosinophils % 1.4 Basophils % 0.6 Nucleated RBC % 0.0 Absolute Neutrophils 5.88 Absolute Lymphocytes 0.99 L Absolute Monocytes 0.83 H Absolute Eosinophils 0.11 Absolute Basophils 0.05 APTT 41.3 H Sodium 140 Potassium 3.7 Chloride 105 Carbon Dioxide 25.4 Anion Gap 9.6 BUN 43 H Creatinine 2.3 H Est GFR (CKD-EPI 2020) 21.90 Glucose 113 H Calcium 8.5 Magnesium 2.0 C-Reactive Protein > 25.00 H 02/05/22 13:50 WBC RBC Hgb Hct MCV MCH MCHC RDW Plt Count MPV Immature Gran % Neutrophils % Lymphocytes % Monocytes % Eosinophils % Basophils % Nucleated RBC % Absolute Neutrophils Absolute Lymphocytes Absolute Monocytes Absolute Eosinophils Absolute Basophils APTT 47.8 H Sodium Potassium Chloride Carbon Dioxide Anion Gap BUN Creatinine Est GFR (CKD-EPI 2020) Glucose Calcium Magnesium C-Reactive Protein
[2022-02-05] MEDS: Ondansetron 4 MG/2 ML VIAL IVP (17:59)
[2022-02-05] MEDS: Normal Saline Flush 10 ML SYR IVP (17:59)
[2022-02-05] MEDS: Polyethylene Glycol 3350 17 GM PACKET PO (18:29)
[2022-02-05] MEDS: Rosuvastatin 10 MG TAB PO (19:28)
[2022-02-05] MEDS: Docusate Sodium 100 MG CAP PO (19:28)
[2022-02-06] VITALS (8 sets, daily range): BP systolic 106–142; BP diastolic 66–80; PULSE 70–80; RESP 15–18; TEMP 37.4–37.7; O2SAT 92–96
[2022-02-06] MEDS: Levothyroxine 75 MCG TAB PO (05:54)
[2022-02-06 06:28] LABS: Abs Immature Grans 0.24 10^3/uL (0.0-0.06); Absolute Basophil Count 0.07 10^3/uL (0.0-0.2); Absolute Eosinophil Count 0.25 10^3/uL (0.0-0.7); Absolute Lymphocyte Count 1.63 10^3/uL (1.2-3.4); Absolute Monocyte Count 0.85 10^3/uL (0.1-0.8); Absolute Neutrophil Count 4.27 10^3/uL (1.2-6.7); Eosinophils % 3.4; HCT 31.6 % (36.0-46.0); HGB 10.4 g/dL (11.2-15.7); Immature Grans % 3.3; Lymphocytes % 22.3; MCH 30.1 pg (27.0-33.0); MCHC 32.9 % (32.0-36.0); MCV 91 fL (80-95); MPV 10.5 fL (8.0-11.0); Monocytes % 11.6; Neutrophils % 58.4; Platelet Count 265 10^3/uL (130-400); RBC 3.46 10^6/uL (3.93-5.22); RDW 13.3 % (11.7-14.6); RDW-SD 45.3 fL; WBC 7.31 10^3/uL (4.4-10.8)
[2022-02-06 06:47] LABS: PTT Activated 36.3 sec (21.0-27.5)
[2022-02-06 06:49] LABS: Anion Gap 7.8 mmol/L (3-11); BUN 35 mg/dL (7-18); C-Reactive Protein 13.28 mg/dL (0.0-0.3); CO2 27.2 mmol/L (21.0-32.0); CREATININE 1.9 mg/dL (0.55-1.02); Calcium 8.7 mg/dL (8.5-10.1); Chloride 104 mmol/L (98-107); Estimated GFR 27.54 (mL/min/1.73m2); Glucose 109 mg/dL (74-106); Magnesium 1.6 mg/dL (1.8-2.4); Sodium 139 mmol/L (136-145)
[2022-02-06 08:07] LABS: Procalcitonin 3.7 ng/mL
--- NOTE | 2022-02-06 09:05 | PDOC.CMPRO ---
- If Service Date Differs Date of service: 02/06/22 Time of Service: 09:05 Care Management Progress Note S/O:Sujata was sitting up in bed when CM met with her. She was smiling and informed CM that she feels like she is slowly improving. She did state that she has been having diarrhea because of the laxatives that she has been given to treat her constipation. Sujata is showing clinical improvement as well as feeling subjectively better. Her WBC has normalized, kidney function is improving and CRP is down to 13.28 from >25. Sujata's blood cultures have grown pratt-sensitivie E.Coli which is what her urine culture also grew. So far today she has remained afebrile. A:Sujata is a 71 year old woman admitted on 02/03/22 with CHF and KEYLA P:Anticipate Sujata will discharge home with no new services when medically cleared by provider. She will follow up with her community providers including her PCP and Cardiology and transport with family. CM will continue to support Sujata and assess for discharge concerns.
[2022-02-06] MEDS: Normal Saline Flush 10 ML SYR IVP (09:20)
[2022-02-06] MEDS: Pantoprazole 40 MG TABCR PO (09:36)
[2022-02-06] MEDS: Normal Saline 500 ML 100 ML IV (09:37)
[2022-02-06] MEDS: MAGNESIUM SULFATE 2 GM/50 ML BAG IVPB (09:37)
[2022-02-06] MEDS: Docusate Sodium 100 MG CAP PO ×2 (09:37→19:12)
[2022-02-06] MEDS: Polyethylene Glycol 3350 17 GM PACKET PO (09:37)
[2022-02-06] MEDS: Carbamide Peroxide 15 ML BTL AU ×2 (10:36→19:12)
[2022-02-06] MEDS: cefTRIAXone 2 GM/50 ML BAG IVPB (12:07)
[2022-02-06] MEDS: Gabapentin 300 MG CAP PO (13:53)
[2022-02-06 14:30] LABS: PTT Activated 54.3 sec (21.0-27.5)
--- NOTE | 2022-02-06 15:34 | W.PM.PROGNOT ---
Date of Service Date of service: 02/06/22 Time of Service: 15:34 Assessment and Plan Assessment and plan (1) Sepsis: Status: Acute Assessment and plan: With E. Coli bacteremia due to a UTI, present on admission. Sensitive to ceftriaxone. Repeat blood cultures negative. No evidence of pathology on ultrasound. Both CRP and procalcitionin are getting better. continue ceftriaxone 2 grams q24 hrs (day 3 of abx of anticipated 10-14 day course). On discharge could go home on oral abx such as cefpodoxime to complete the course. (2) Atrial fibrillation with rapid ventricular response: Status: Acute Assessment and plan: In setting of sepsis. Converted to NSR. New diagnosis. TSH ok. Continue IV hydration, antibiotics, heparin gtt. No recurrences. Echo w/o significant valvular abnormalities, LVEF of 55-60%, RVSP of 23 mmHg. CHADSVASC score of 3. Continue tele. Prn IV lopressor. Will need an MPI stress test and a cardiac event recorder as outpatient. Suspect she could be discharged home with a DOAC. (3) Hypotension: Status: Resolved Assessment and plan: In setting of sepsis, dehydration, having recently received diltiazem. This has resolved with treatment of sepsis. Not on IVF. Continue to mointor BPs. (4) KEYLA (acute kidney injury): Status: Acute Assessment and plan: In setting of sepsis, UTI, clinical dehydration, hypoperfusion from Afib. Improving, but not back to baseline. Unable to tolerate any more IVF. US renal does not have any evidence of obstructive pathology or stones. FeNA 3.2% which could be reflective of intrinsic injury as well. Continue encourage PO fluids, treat infection, and monitor Cr. (5) Hypokalemia: Status: Resolved Assessment and plan: Recheck in am. (6) Elevated d-dimer: Status: Acute Assessment and plan: Likely reactive finding due to sepsis. Venous dopplers negative. We did not perform a CTA due to lack of pulmonary sx. (7) Hypomagnesemia: Status: Acute Assessment and plan: Replete. Recheck in am. (8) Trigeminal neuralgia of right side of face: Status: Acute Assessment and plan: Continue gabapentin (9) DVT prophylaxis: Status: Acute Assessment and plan: Heparin gtt (10) Discharge planning issues: Status: Acute Assessment and plan: DNR/DNI as discussed with the patient. Transferred to medical surgical floor on day of admission (02/03/22). Continues to require hospitalization. Spoke with Jannet ([phone]) and gave an update on the patient's condition. Subjective Subjective Interval history since last seen: Ms Najera states that she is feeling better today. She is still a little weak and wobbly on her feet. She has been walking with a walker here. She denies dizziness, chest pain, shortness of breath, and nausea. She has not needed any percocet. She has been sleeping well. Exam Narrative Exam Narrative: General: Elderly female who is A&Ox3, looks better today than yesterday HEENT: EOMI, MMM Cardiovascular: RRR, no m/r/g Lungs: CTAB Gastrointestinal: soft, nontender, nondistended Extremities: no edema BLEs Objective Last Vital Signs Temp 37.4 C 02/06/22 11:37 Pulse 79 02/06/22 11:37 Resp 17 02/06/22 11:37 BP 106/66 02/06/22 11:37 Pulse Ox 96 02/06/22 11:37 Laboratory Results - last 24 hr 02/06/22 02/06/22 02/06/22 05:50 05:50 05:50 WBC 7.31 RBC 3.46 L Hgb 10.4 L Hct 31.6 L MCV 91 MCH 30.1 MCHC 32.9 RDW 13.3 Plt Count 265 MPV 10.5 Immature Gran % 3.3 Neutrophils % 58.4 Lymphocytes % 22.3 Monocytes % 11.6 Eosinophils % 3.4 Basophils % 1.0 Nucleated RBC % 0.0 Absolute Neutrophils 4.27 Absolute Lymphocytes 1.63 Absolute Monocytes 0.85 H Absolute Eosinophils 0.25 Absolute Basophils 0.07 APTT Sodium 139 Potassium 4.0 Chloride 104 Carbon Dioxide 27.2 Anion Gap 7.8 BUN 35 H Creatinine 1.9 H Est GFR (CKD-EPI 2020) 27.54 Glucose 109 H Calcium 8.7 Magnesium 1.6 L C-Reactive Protein 13.28 H Procalcitonin 3.7 02/06/22 02/06/22 05:50 13:35 WBC RBC Hgb Hct MCV MCH MCHC RDW Plt Count MPV Immature Gran % Neutrophils % Lymphocytes % Monocytes % Eosinophils % Basophils % Nucleated RBC % Absolute Neutrophils Absolute Lymphocytes Absolute Monocytes Absolute Eosinophils Absolute Basophils APTT 36.3 H 54.3 H Sodium Potassium Chloride Carbon Dioxide Anion Gap BUN Creatinine Est GFR (CKD-EPI 2020) Glucose Calcium Magnesium C-Reactive Protein Procalcitonin
[2022-02-06] MEDS: Rosuvastatin 10 MG TAB PO (19:12)
[2022-02-07] VITALS (8 sets, daily range): BP systolic 102–119; BP diastolic 64–73; PULSE 68–82; RESP 14–20; TEMP 36.9–37.9; O2SAT 92–95
[2022-02-07] MEDS: Levothyroxine 75 MCG TAB PO (06:26)
[2022-02-07 06:58] LABS: Abs Immature Grans 0.49 10^3/uL (0.0-0.06); HCT 32.9 % (36.0-46.0); HGB 10.9 g/dL (11.2-15.7); MCH 30.1 pg (27.0-33.0); MCHC 33.1 % (32.0-36.0); MCV 91 fL (80-95); MPV 9.9 fL (8.0-11.0); Platelet Count 311 10^3/uL (130-400); RBC 3.62 10^6/uL (3.93-5.22); RDW 13.6 % (11.7-14.6); RDW-SD 46.2 fL; WBC 8.42 10^3/uL (4.4-10.8)
[2022-02-07 07:12] LABS: Anion Gap 8.6 mmol/L (3-11); BUN 26 mg/dL (7-18); C-Reactive Protein 7.76 mg/dL (0.0-0.3); CO2 29.4 mmol/L (21.0-32.0); CREATININE 1.5 mg/dL (0.55-1.02); Calcium 8.7 mg/dL (8.5-10.1); Chloride 104 mmol/L (98-107); Estimated GFR 36.57 (mL/min/1.73m2); Glucose 109 mg/dL (74-106); Magnesium 1.9 mg/dL (1.8-2.4); Potassium 3.9 mmol/L (3.5-5.1); Sodium 142 mmol/L (136-145)
[2022-02-07 07:20] LABS: PTT Activated 39.7 sec (21.0-27.5)
[2022-02-07 08:00] LABS: Absolute Lymphocyte Count 2.53 10^3/uL (1.2-3.4); Absolute Monocyte Count 1.09 10^3/uL (0.1-0.8); Absolute Neutrophil Count 4.72 10^3/uL (1.2-6.7); Atypical Lymphocytes % 4; Bands % 0; Metamyelocytes % 1
[2022-02-07 08:01] LABS: Diff Comment Manual Differential; RBC Morphology Normal
[2022-02-07] MEDS: Docusate Sodium 100 MG CAP PO ×2 (08:06→19:28)
[2022-02-07] MEDS: Pantoprazole 40 MG TABCR PO (08:06)
[2022-02-07] MEDS: Polyethylene Glycol 3350 17 GM PACKET PO (08:07)
--- NOTE | 2022-02-07 08:20 | PDOC.CMPRO ---
- If Service Date Differs Date of service: 02/07/22 Time of Service: 08:20 Care Management Progress Note S/O:Sujata was sitting up in bed when CM met with her. A:Sujata is a 71 year old woman admitted on 02/03/22 with CHF and KEYLA P:Anticipate Sujata will discharge home with no new services when medically cleared by provider. She will follow up with her community providers including her PCP and Cardiology and transport with family. CM will continue to support Sujata and assess for discharge concerns.
[2022-02-07] MEDS: Carbamide Peroxide 15 ML BTL AU ×2 (08:30→19:29)
--- NOTE | 2022-02-07 09:13 | PT.INIE ---
Date of service: 02/07/22 Time of Service: 09:13 PT Notes Visit Reasons: New Onset CHF, Rapid AFIB, KEYLA with Hypokalemia,H Physical Therapy Inpatient Initial Evaluation Date: 02/07/2022 Referring Doctor: Shirley Nichols MD PT Orders: PT CONSULT: Limited ability Precautions: Fall. Standard. Activity as tolerated. Patient Profile/Admitting Diagnosis: Sujata is a 71-year-old female who presented to the ED on 02/03/2022 due to generalized weakness, intermittent chills, 3 days' worth of malaise and fatigue, lightheadedness, and sharp pain on the R side of her calf. Patient is diagnosed with sepsis, hypotension, KEYLA, hypokalemia, elevated d-dimer, hypomagnesemia, trigeminal neuralgia of R-side of face. PMHX: All Active Problems Sepsis (Acute) Hypotension (Acute) Trigeminal neuralgia of right side of face (Acute) Discharge planning issues (Acute) DVT prophylaxis (Acute) Hypomagnesemia (Acute) Elevated d-dimer (Acute) Hypokalemia (Acute) KEYLA (acute kidney injury) (Acute) Acute CHF (Acute) Atrial fibrillation with rapid ventricular response (Acute) Essential hypertension (Chronic) Hyperlipidemia (Chronic) Hypothyroidism (Chronic) Vaginal atrophy (Chronic 11/09/17) Rx with vaginal Estrogen cream.? Expense of vaginal estrogen cream was an issue Chronic vulvitis (Chronic) Long-standing approximately 3 years duration 09/2017 briefly used vaginal Premarin and triamcinolone topical steroid with improvement. 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 Resolved without treatment. Dermatitis (Acute) Chronic heartburn (Chronic) Advance directive declined by patient (Acute) Medical History?(Updated 02/03/22 @ 13:43 by Shirley Nichols MD) Acute vulvitis 02/20/2019. Developed into lesions. PCR: HSV2.? Patient advised to notify the office in the event of another flare Postherpetic neuralgia Surgical History? S/P appendectomy S/P left oophorectomy For ovarian cystS/P tonsillectomy and adenoidectomy S/P tubal ligation (~1978) Status post left shoulder hemiarthroplasty (03/30/17) Hemiarthroplasty left shoulder using humeral CAP prosthesis Social History/Home Situation: Patient lives with disabled son who she provides just supervision for as he is independent mobility-cm. She is independent with all transfers and ambulation using no AD prior to admission. Equipment Owned/DME: Patient took care of a parent previously and has inherited all the assistive ambulatory device at home. Subjective: Reports no headache and facial pain. Denies lightheadedness, chills, and pain in calf. Not nauseous. Generally feels a lot better compared to when she came in. Objective: General Observation: Supine in bed. Telemetry monitoring in place. IV acces in L UE. Mental Status: Alert and oriented as to person, place, time, and purpose. Able to pay attention, focus, and respond appropriately. Pain: Denies ROM: Right Upper Extremity: Shoulder Flexion WFL. Shoulder abduction WFL. Elbow flexion WFL. Wrist flexion WFL. Functional opening and closing of hand WFL. Left Upper Extremity: Shoulder Flexion lacks the last 25% of AROM due to previous surgery. Shoulder abduction lacks the last 25% of AROM due to previous surgery. Elbow flexion WFL. Wrist flexion WFL. Functional opening and closing of hand WFL. Right Lower Extremity: Hip flexion WFL. Hip abduction WFL. Knee flexion WFL. Ankle dorsiflexion WFL. Ankle plantarflexion WFL. Left Lower Extremity: Hip flexion WFL. Hip abduction WFL. Knee flexion WFL. Ankle dorsiflexion WFL. Ankle plantarflexion WFL. Strength: Right Upper Extremity: Shoulder flexors 4-/5. Shoulder abductors 4-/5. Elbow flexors 4/5. Elbow extensors 4/5. Lead Carpenter strong. Left Upper Extremity: Shoulder flexors 3-/5. Shoulder abductors 3-/5. Elbow flexors 4/5. Elbow extensors 4/5. Lead Carpenter strong. Right Lower Extremity: Hip flexors 4/5. Hip abductors 4/5. Knee flexors 4/5. Knee extensors 4/5. Ankle dorsiflexors 4/5. Ankle plantarflexors 4/5. Left Lower Extremity: Hip flexors 4/5. Hip abductors 4/5. Knee flexors 4/5. Knee extensors 4/5. Ankle dorsiflexors 4/5. Ankle plantarflexors 4/5. Bed Mobility/Transfers: Rolling independent Supine to sit independent Sit to supine independent Sit to stand stand by assist Stand to sit stand by assist Gait: Instructed patient with level surface ambulation of 150 feet + 75 feet requiring stand by assist. Cindi decreased. Limited arm swing on the L. No path deviation. NO LOB. NO SOB. Balance: Static Sitting: Normal Dynamic Sitting: Normal Static Standing: Good Dynamic Standing: Fair Special Tests: Mobility Limitations Standardized Measure [facility] AM-PAC 6 clicks Basic Mobility Inpatient Short Form: Raw Score: 24 CMS Score: 0% deficit 4-stage Balance test: Maintains feet together and semi-tandem for 10 seconds; unable to with full tandem and one-legged stance. Informed Consent/Education: Patient was instructed in purpose of PT consult and plan of care. Agreeable to proceed with established PT POC to achieve personal goals. Assessment: Patient presents with clinical signs and symptoms consistent with current/admitting diagnoses that have resulted to mobility limitations, gait instability, generalized weakness, and overall ADL decline as demonstrated by the following impairment level findings: 1. Decreased strength to B LE and L shoulder major muscle groups 2. Impaired standing balance 3. Impaired activity tolerance 4. Limitation of joint range of motion in L shoulder (chronic issue from previous surgery) Impairments are contributing to the following functional limitations: 1. Difficulty with ambulation without assistive device 2. Increased completion time for mobility ADL performance 3. Increased risk for falls 4. Difficulty with managing steps alone safely Patient is assessed as a 58133 moderate complexity based on the following: History: 71-year-old female with past medical history as indicated above Examination: Demonstrable impairment in strength, balance, and mobility level with underlying impairments and functional limitations as exhibited above as well as deficit score of 24% utilizing the [facility] Mobility Inpatient Short Form Presentation: Evolving Decision Makin moderate complexity Goals: Goals X1 week 1. Supine-Sit independent 2. Sit-Supine independent 3. Sit-Stand independent 4. Stand-Sit independent with no AD 5. Bed-Chair independent with no AD 6. Chair-Bed independent with no AD 7. Independent gait on level surface with use of no AD for at least 300 feet without report of pain nor dyspnea 8. Independent stair negotiation while holding onto 1 rail for at least 3 steps without report of pain nor dyspnea 9. Independent with home exercise program 10. Good static and dynamic standing balance/tolerance Plan of Care/Treatment Plan: 1-2x/day, 7 days/week x 1 week. Plan of care has been reviewed with the COURT ADMINISTRATOR providing the service under Physical Therapy direction. Initiate Physical Therapy intervention for pain management as needed, strengthening, bed mobility, transfers, gait, stairs, balance training, and use of assistive device. DISCHARGE RECOMMENDATIONS: [] Home with no services [] [X] Home with services. Patient will benefit from home health PT services in order to progress mobility level using least restrictive assistive ambulatory device, assess home safety, identify additional equipment needs, and establish a functional maintenance program that will increase ability of patient to remain at home. [] Home with outpatient PT [] [] SNF for continued rehabilitation [] [] Jail Care [] [] SNF versus LTC based on ability to participate and progress [] TREATMENT CODE/TIME: 51953 x 20 minutes, 52842 x 11 minutes beginning at 9:13 AM. Thank you for the opportunity to participate in the care of this patient. Mary Kate Hunter PT, DPT, CLT [facility] [place], [place]
[2022-02-07] MEDS: cefTRIAXone 2 GM/50 ML BAG IVPB (11:53)
[2022-02-07] MEDS: Apixaban 5 MG TAB PO ×2 (11:53→19:28)
[2022-02-07] MEDS: Normal Saline Flush 10 ML SYR IVP (11:53)
--- NOTE | 2022-02-07 13:42 | PT.INTREAT ---
Date of service: 02/07/22 Time of Service: 13:42 PT Notes Visit Reasons: New Onset CHF, Rapid AFIB, KEYLA with Hypokalemia,H Physical Therapy Inpatient Treatment Note Date: 02/07/2022 Precautions: Fall. Standard. Activity as tolerated. Subjective: Feels much better but is sleepy. Reports no headache and facial pain.? Denies lightheadedness, chills, and pain in calf.? Not nauseous.? Objective: General Observation: Supine in bed.? Telemetry monitoring in place. IV acces in L UE. Mental Status: Alert and oriented as to person, place, time, and purpose. Able to pay attention, focus, and respond appropriately. Pain: Denies Bed Mobility/Transfers: Rolling independent Supine to sit independent Sit to supine independent Sit to stand independent Stand to sit independent Gait: Instructed patient with level surface ambulation of 200 requiring stand by assist. Cindi decreased. Limited arm swing on the L.? No path deviation.? NO LOB. NO SOB. Stairs: Up and down 3 x 4-inch steps and 2 x 6-inch steps while holding onto one rail and SPC with the other hand. Stand by assist provided. THERA EX: Bilateral heel raises x 5 partial knee bends x 5 Balance: Static Sitting: Normal Dynamic Sitting: Normal Static Standing: Good Dynamic Standing: Fair Assessment: Continues to improve with functional mobility performance using SPC with no symptom exacerbation. DISCHARGE RECOMMENDATIONS: [] ? Home with no services [] [X] ? Home with services.? Patient will benefit from home health PT services in order to progress mobility level using least restrictive assistive ambulatory device, assess home safety, identify additional equipment needs, and establish a functional maintenance program that will increase ability of patient to remain at home.? [] ? Home with outpatient PT [] [] ? SNF for continued rehabilitation [] [] ? Bar Supervisor Care [] [] ? SNF versus LTC based on ability to participate and progress [] TREATMENT CODE/TIME: 53633 x 15 minutes, 57885 x 9 minnutes beginning at 13:42 PM.
[2022-02-07] MEDS: Gabapentin 300 MG CAP PO (13:45)
--- NOTE | 2022-02-07 14:14 | W.PM.PROGNOT ---
Date of Service Date of service: 02/07/22 Time of Service: 14:15 Assessment and Plan Assessment and plan (1) Sepsis: Status: Acute Assessment and plan: With E. Coli bacteremia due to a UTI, present on admission. Sensitive to ceftriaxone. Repeat blood cultures negative. No evidence of pathology on ultrasound. Both CRP and procalcitionin improved. continue ceftriaxone 2 grams q24 hrs (day 4 of abx of anticipated 10-14 day course). Possibly d/c tomorrow on oral abx. (2) Atrial fibrillation with rapid ventricular response: Status: Acute Assessment and plan: In setting of sepsis. Converted to NSR. New diagnosis. TSH ok. D/C heparin drip and begin Eliquis 5mg BID. No recurrences. Echo w/o significant valvular abnormalities, LVEF of 55-60%, RVSP of 23 mmHg. CHADSVASC score of 3. Continue tele. Prn IV lopressor. Will need an MPI stress test and a cardiac event recorder as outpatient. (3) Hypotension: Status: Resolved Assessment and plan: In setting of sepsis, dehydration, having recently received diltiazem. This has resolved with treatment of sepsis. Not on IVF. Continue to mointor BPs. (4) KEYLA (acute kidney injury): Status: Acute Assessment and plan: In setting of sepsis, UTI, clinical dehydration, hypoperfusion from Afib. Improving. Creatinine 1.5. Baseline appx 1.1. US renal does not have any evidence of obstructive pathology or stones. Continue encourage PO fluids, treat infection, and monitor Cr. (5) Hypokalemia: Status: Resolved Assessment and plan: Repleted. Monitor. (6) Elevated d-dimer: Status: Acute Assessment and plan: Likely reactive finding due to sepsis. Venous dopplers negative. We did not perform a CTA due to lack of pulmonary sx. (7) Hypomagnesemia: Status: Acute Assessment and plan: Repleted. (8) Trigeminal neuralgia of right side of face: Status: Acute Assessment and plan: Continue gabapentin (9) DVT prophylaxis: Status: Acute Assessment and plan: Now on Eliquis. (10) Discharge planning issues: Status: Acute Assessment and plan: DNR/DNI as discussed with the patient. Transferred to medical surgical floor on day of admission (02/03/22). Continues to require hospitalization. Subjective Subjective Patient reports: no new complaints, feels better, tolerating a regular diet (Appetite is subdued) and afebrile; denies nausea or vomiting Exam Narrative Exam Narrative: General: Elderly female lying in bed. Interactive, pleasant. HEENT: EOMI, MMM Cardiovascular: RRR, no murmur. Lungs: CTAB Gastrointestinal: soft, nontender, nondistended Extremities: no edema BLEs Objective Last Vital Signs Temp 37.6 C H 02/07/22 11:06 Pulse 73 02/07/22 11:06 Resp 14 02/07/22 11:06 BP 117/72 02/07/22 11:06 Pulse Ox 94 02/07/22 11:06 Laboratory Results - last 24 hr 02/06/22 02/07/22 02/07/22 13:35 06:20 06:20 WBC 8.42 RBC 3.62 L Hgb 10.9 L Hct 32.9 L MCV 91 MCH 30.1 MCHC 33.1 RDW 13.6 Plt Count 311 MPV 9.9 Immature Gran % 0.0 Neutrophils % 56.0 Band Neutrophils % 0 Lymphocytes % 26.0 Atypical Lymphs % 4 Monocytes % 13.0 Eosinophils % 0.0 Basophils % 0.0 Metamyelocytes % 1 Nucleated RBC % 0.0 Absolute Neutrophils 4.72 Absolute Lymphocytes 2.53 Absolute Monocytes 1.09 H Absolute Eosinophils 0.00 Absolute Basophils 0.00 RBC Morphology Normal APTT 54.3 H 39.7 H Sodium Potassium Chloride Carbon Dioxide Anion Gap BUN Creatinine Est GFR (CKD-EPI 2020) Glucose Calcium Magnesium C-Reactive Protein 02/07/22 06:20 WBC RBC Hgb Hct MCV MCH MCHC RDW Plt Count MPV Immature Gran % Neutrophils % Band Neutrophils % Lymphocytes % Atypical Lymphs % Monocytes % Eosinophils % Basophils % Metamyelocytes % Nucleated RBC % Absolute Neutrophils Absolute Lymphocytes Absolute Monocytes Absolute Eosinophils Absolute Basophils RBC Morphology APTT Sodium 142 Potassium 3.9 Chloride 104 Carbon Dioxide 29.4 Anion Gap 8.6 BUN 26 H Creatinine 1.5 H Est GFR (CKD-EPI 2020) 36.57 Glucose 109 H Calcium 8.7 Magnesium 1.9 C-Reactive Protein 7.76 H
--- NOTE | 2022-02-07 16:58 | CHAPLAIN ---
Sujata was in bed when I visited. She said may be discharged tomorrow, but she's not sure she's feeling up to it and she hopes to talk with the hospitalist about it. I offered a prayer with Sujata.
[2022-02-07] MEDS: Rosuvastatin 10 MG TAB PO (19:28)
[2022-02-07] MEDS: Acetaminophen 325 MG TAB PO (20:46)
[2022-02-08] VITALS (8 sets, daily range): BP systolic 99–138; BP diastolic 61–79; PULSE 63–74; RESP 16–19; TEMP 36.4–37; O2SAT 94–96
[2022-02-08] MEDS: Levothyroxine 75 MCG TAB PO (05:41)
[2022-02-08] MEDS: Acetaminophen 325 MG TAB PO ×2 (05:41→21:10)
[2022-02-08 06:13] LABS: Anion Gap 6.6 mmol/L (3-11); BUN 25 mg/dL (7-18); CO2 30.4 mmol/L (21.0-32.0); CREATININE 1.4 mg/dL (0.55-1.02); Calcium 8.8 mg/dL (8.5-10.1); Chloride 103 mmol/L (98-107); Estimated GFR 39.73 (mL/min/1.73m2); Glucose 105 mg/dL (74-106); Potassium 4.3 mmol/L (3.5-5.1); Sodium 140 mmol/L (136-145)
[2022-02-08 06:14] LABS: PTT Activated 27.4 sec (21.0-27.5)
[2022-02-08] MEDS: cefTRIAXone 2 GM/50 ML BAG IVPB (07:42)
[2022-02-08] MEDS: Apixaban 5 MG TAB PO ×2 (07:43→21:10)
[2022-02-08] MEDS: Docusate Sodium 100 MG CAP PO ×2 (07:43→21:10)
[2022-02-08] MEDS: Pantoprazole 40 MG TABCR PO (07:43)
[2022-02-08] MEDS: Carbamide Peroxide 15 ML BTL AU ×2 (07:44→21:20)
[2022-02-08] MEDS: Normal Saline Flush 10 ML SYR IVP (07:44)
[2022-02-08] MEDS: Ibuprofen 400 MG TAB PO (09:29)
--- NOTE | 2022-02-08 09:55 | PT.INTREAT ---
PT Notes Visit Reasons: New Onset CHF, Rapid AFIB, KEYLA with Hypokalemia,H Date: 02/08/2022 Precautions: Fall. Standard. Activity as tolerated. Subjective: Pt in recliner, very pleasant, agrees to participating with therapy. Objective: General Observation: Supine in bed.? Telemetry monitoring in place. IV acces in L UE. Mental Status: Alert and oriented as to person, place, time, and purpose.? Able to pay attention, focus, and respond appropriately. Pain: Denies Bed Mobility/Transfers: Rolling independent Supine to sit independent Sit to supine independent Sit to stand independent Stand to sit independent Gait: Instructed patient with level surface ambulation of 200 requiring stand by assist. Cindi decreased. Limited arm swing on the L.? No path deviation.? NO LOB. NO SOB. Stairs: Up and down 3 x 4-inch steps and 2 x 6-inch steps while holding onto one rail and SPC with the other hand.? Stand by assist provided.? THERA EX: Bilateral heel raises x 5 partial knee bends x 5 Balance: Static Sitting: Normal Dynamic Sitting: Normal Static Standing: Good Dynamic Standing: Fair Assessment: Pt able to tolerate activity well and was making safe choices during task. Plan: [X] ? Home with services.? Patient will benefit from home health PT services in order to progress mobility level using least restrictive assistive ambulatory device, assess home safety, identify additional equipment needs, and establish a functional maintenance program that will increase ability of patient to remain at home.? [ TREATMENT CODE/TIME: 45952 x 15 minutes,? 48006 x 9 minnutes beginning at 9:00am
[2022-02-08] MEDS: Gabapentin 300 MG CAP PO (13:34)
--- NOTE | 2022-02-08 13:52 | W.PM.PROGNOT ---
Date of Service Date of service: 02/08/22 Time of Service: 13:52 Assessment and Plan Assessment and plan (1) Sepsis: Status: Acute Assessment and plan: With E. Coli bacteremia due to a UTI, present on admission. Sensitive to ceftriaxone. Repeat blood cultures negative. No evidence of pathology on ultrasound. Both CRP and procalcitionin improved. continue ceftriaxone 2 grams q24 hrs (day 4 of abx of anticipated 10-14 day course). Planning d/c tomorrow on oral abx. (2) Atrial fibrillation with rapid ventricular response: Status: Acute Assessment and plan: In setting of sepsis. Converted to NSR. New diagnosis. TSH ok. D/C heparin drip and begin Eliquis 5mg BID. No recurrences. Echo w/o significant valvular abnormalities, LVEF of 55-60%, RVSP of 23 mmHg. CHADSVASC score of 3. Continue tele. Prn IV lopressor. Will need an MPI stress test and a cardiac event recorder as outpatient. (3) Hypotension: Status: Resolved Assessment and plan: In setting of sepsis, dehydration, having recently received diltiazem. This has resolved with treatment of sepsis. Not on IVF. Continue to mointor BPs. (4) KEYLA (acute kidney injury): Status: Acute Assessment and plan: In setting of sepsis, UTI, clinical dehydration, hypoperfusion from Afib. Improving. Creatinine 1.4. Baseline appx 1.1. US renal does not have any evidence of obstructive pathology or stones. Continue encourage PO fluids, treat infection, and monitor Cr. (5) Hypokalemia: Status: Resolved Assessment and plan: Repleted. Monitor. (6) Elevated d-dimer: Status: Acute Assessment and plan: Venous dopplers negative. We did not perform a CTA due to lack of pulmonary sx. (7) Hypomagnesemia: Status: Acute Assessment and plan: Repleted. (8) Trigeminal neuralgia of right side of face: Status: Acute Assessment and plan: Continue gabapentin (9) DVT prophylaxis: Status: Acute Assessment and plan: Now on Eliquis. (10) Discharge planning issues: Status: Acute Assessment and plan: DNR/DNI as discussed with the patient. Transferred to medical surgical floor on day of admission (02/03/22). Continues to require hospitalization. Subjective Subjective Patient reports: no new complaints, feels better, tolerating a regular diet and afebrile; denies nausea or vomiting Exam Narrative Exam Narrative: General: Elderly female sitting in recliner eating breakfast. Interactive, pleasant. HEENT: EOMI, MMM Cardiovascular: RRR, no murmur. Lungs: CTAB Gastrointestinal: soft, nontender, nondistended Extremities: no edema BLEs Objective Last Vital Signs Temp 36.4 C L 02/08/22 11:44 Pulse 65 02/08/22 11:44 Resp 16 02/08/22 11:44 BP 138/79 02/08/22 11:44 Pulse Ox 96 02/08/22 11:44 Laboratory Results - last 24 hr 02/08/22 02/08/22 05:23 05:23 APTT 27.4 Sodium 140 Potassium 4.3 Chloride 103 Carbon Dioxide 30.4 Anion Gap 6.6 BUN 25 H Creatinine 1.4 H Est GFR (CKD-EPI 2020) 39.73 Glucose 105 Calcium 8.8
[2022-02-08] MEDS: Rosuvastatin 10 MG TAB PO (21:10)
[2022-02-09 03:15] VITALS: BP 158/79; PULSE 73; RESP 18; TEMP 36.5; O2SAT 94
[2022-02-09] MEDS: Levothyroxine 75 MCG TAB PO (05:44)
[2022-02-09] MEDS: cefTRIAXone 2 GM/50 ML BAG IVPB (07:39)
[2022-02-09] MEDS: Pantoprazole 40 MG TABCR PO (07:39)
[2022-02-09] MEDS: Normal Saline Flush 10 ML SYR IVP (07:39)
[2022-02-09] MEDS: Apixaban 5 MG TAB PO (07:39)
[2022-02-09] MEDS: Docusate Sodium 100 MG CAP PO (07:40)
[2022-02-09] MEDS: Carbamide Peroxide 15 ML BTL AU (07:40)
[2022-02-09 08:03] VITALS: BP 139/72; PULSE 67; RESP 16; TEMP 37; O2SAT 95
[2022-02-09 09:05] VITALS: BP 141/78; PULSE 75; RESP 17; TEMP 37.4; O2SAT 96
--- NOTE | 2022-02-09 09:37 | PTTR_ITS ---
PT Notes Visit Reasons: New Onset CHF, Rapid AFIB, KEYLA with Hypokalemia,H Date: 02/09/2022 Precautions: Fall. Standard. Activity as tolerated. Subjective: Pt in recliner with vomit bag, pt reports that she was feeling off this morning but would like to participate with therpy so she could feel stronger and get ready to go home this afternoon.. Objective: Mental Status: Alert and oriented as to person, place, time, and purpose.? Able to pay attention, focus, and respond appropriately. Pain: Denies Bed Mobility/Transfers: Rolling independent Supine to sit independent Sit to supine independent Sit to stand independent Stand to sit independent Gait: Instructed patient with level surface ambulation of 150' [facility] using FWW with pt maneuvering small perimeter of pt room. Cindi decreased.?NO LOB. NO SOB.? THERA EX: Bilateral heel raises x 5 partial knee bends x 5 Balance: Static Sitting: Normal Dynamic Sitting: Normal Static Standing: Good Dynamic Standing: Fair Assessment: Pt able to tolerate activity well and was making safe choices during task. Plan: [X] ? Home with services.? Patient will benefit from home health PT services in order to progress mobility level using least restrictive assistive ambulatory device, assess home safety, identify additional equipment needs, and establish a functional maintenance program that will increase ability of patient to remain at home.? [ TREATMENT CODE/TIME: 34621 x 15 minutes,? 74955 x 8 minnutes beginning at? 9:11am
[2022-02-09 12:01] VITALS: BP 169/81; PULSE 71; RESP 16; TEMP 37.2; O2SAT 95
--- NOTE | 2022-02-09 13:31 | PDOC.HHF2F_ITS ---
Home Health Certification Home Health Certification: 1. Encounter Date and Reason I certify that Sujata Najera was seen by lCint Choudhary MD on 02/09/22 and that I had a [id number] encounter with this patient that meets the physician face to face encounter requirements. 2. Clinical Findings Supporting Skilled Need and Homebound Status I certify that home health services are medically necessary, include either intermittent senior care and/or physical/speech therapy, and that this santi ent is homebound in that absences from the home require considerable and taxing effort and are infrequent or of short duration, or are attributable to the need to receive medical care. [X] (a) Attached documentation from encounter provides clinical findings supporting skilled need and homebound status (including what assistance patient requires to leave the home). The encounter with the patient was in whole, or in part, for the following medical condition, which is the primary reason for home health care: New Onset CHF, Rapid AFIB, KEYLA with Hypokalemia,H Senior Living: Physical Therapy:to restore Ms Najera's ability to ambulate independently, safely and to increase her strength and endurance for safe ambulation following her hospitalization. Speech Therapy: Homebound:Ms Najera is unable to leave her home without assistance and ambulation is severely limited due to decreased strength and endurance. 3. Certification and Authentication I certify that I composed the above information based on my clinical judgement relating to this patient's medical condition and, if applicable, clinical findings communicated to me by the NPP or inpatient physician who performed the Home Health Referral. All further orders will be obtained through Teofilo Perkins (Community Based Physician - PCP)
--- NOTE | 2022-02-09 13:38 | W.PM.DS.N ---
Date of service: 02/09/22 Time of Service: 13:39 DS: Diagnosis Discharge Diagnosis (1) Sepsis: Status: Acute Asessment and Plan: Initially administered vancomycin, ceftriaxone and doxycycline. After it was clear that she had an E.Coli UTI and E.Coli bacteremia, antibiotic regimen simplified to ceftriaxone only. Her initial procalcitonin was elevated at 20; it trended downward. Her WBC count normalized from a high of 12.8. Her hypotension resolved. She will complete a 10 day course of antibiotics with cefpodoxime 200mg BID for 3 days. (2) Atrial fibrillation with rapid ventricular response: Status: Acute Asessment and Plan: She presented in atrial fibrillation with a rapid ventricular response. This was a new diagnosis. TSH normal. She converted to a normal sinus rhythm. CHADSVASC score of 3. Apixaban initiated. Recommend an outpt MPI stress test. Consider a 30 day cardiac monitor technician. (3) KEYLA (acute kidney injury): Status: Acute Asessment and Plan: She presented with a creatinine of 3.7. With hydration it improved to 1.4. In June of 2021 her creatinine was 1.1. (4) Hypokalemia: Status: Resolved Asessment and Plan: Corrected. (5) Hypomagnesemia: Status: Acute Asessment and Plan: Corrected. (6) Trigeminal neuralgia of right side of face: Status: Acute Asessment and Plan: She had intermittent pain treated with analgesics. No ORONA on day of discharge. (7) Discharge planning issues: Status: Acute Asessment and Plan: She was evaluated by and worked with PT during this admission. She is agreeable to home health PT to work on conditioning/strengthening/safety with ambulation. Discharge Plan Disposition Patient Disposition: Home W/Home Health Services Condition: Improving Discharge Details Reason For Visit: UTI, bacteremia, afib with RVR Admit Date/Time: 02/03/22 10:34 Admit Provider: Shirley Nichols Attending Provider: Shirley Nichols Primary Care Provider: Teofilo Steele Hospital Course Hospital Course: Ms Najera is a 71 year old female with PMHx of HTN, hyperlipidemia, hypothyroidism, post-herpetic neuralgia in trigeminal distribution on the R in the past, who presented to [facility] ED today reporting 3 days of malaise/fatigue, subjective fevers/chills, generalized weakness, diffuse body aches, nausea without vomiting or diarrhea. The patient also describes chest pains yesterday (subcostal on the L) which happened at rest, shortness of breath at the time of presentation to ED - started at rest, per patient. She reports occasional R-sided headache which she is not having at the time of exam which is similar to the pain from shingles in the past. She denies a cough, runny nose, sore throat, dysuria. She does describe urinary dribbling and suprapubic discomfort. In the ED, the patient was in rapid Afib with HR in 180s. Her rhythm converted to sinus after receiving 10 mg of IV diltiazem, but then her SBPs went down to the 90s, necessitating IV fluid boluses. Hospitalists were asked to admit the patient for further evaluation. See Diagnosis ? F/U with PCP in 1-2 weeks. Home Meds and New Rx's Prescriptions: New Eliquis 5 mg tablet 5 mg PO BID Qty: 60 0RF cefpodoxime 200 mg tablet 200 mg PO BID Qty: 6 0RF Rx Instructions: must administer with a meal/food First dose the morning of 02/10/22 Continued acetaminophen 500 mg tablet 1,000 mg PO BID PRN triamcinolone acetonide 0.5 % cream 1 applic topical BID Qty: 45 2RF Rx Instructions: Apply thin layer 2x per day lower legs halobetasol propionate 0.05 % ointment 1 applic TP BID PRN (Reason: for hand eczema) Qty: 15 0RF Rx Instructions: Apply to affected area twice a day -- to HANDS. doxepin 25 mg capsule 25 mg PO QHS Qty: 30 1RF levothyroxine 75 mcg tablet 75 mcg PO DAILY Qty: 90 4RF rosuvastatin 10 mg tablet 10 mg PO DAILY Qty: 90 4RF Rx Instructions: Take 1 tablet once a day losartan 100 mg tablet 100 mg PO DAILY Qty: 90 3RF gabapentin 300 mg capsule 1 cap PO TID Label Comments: TAKE 1 CAPSULE BY MOUTH THREE TIMES DAILY hydrochlorothiazide 25 mg tablet 1 tab PO DAILY Label Comments: TAKE 1 TABLET BY MOUTH DAILY Held ibuprofen 600 mg tablet 600 mg PO TID PRN (Reason: pain) Qty: 180 1RF Hold Instructions: Hold until discusses with PCP. Concerned about renal insufficiency. Discharge Instructions Instructions: Hypotension (DC) Stand Alone Forms: Nursing Discharge Form Referrals: Teofilo Steele NP [Primary Care Provider] - (Please make an appointment in the next 2 weeks ) Activity:: Activity as Tolerated Equipment/Supplies:: No Equipment Needed Diet:: Resume usual home diet Discharge Orders Discharge Orders: Discharge Order (Routine); Ordered 02/09/22 Ordered By: Clint Choudhary DS: Summary Time Spent with Patient providing and/or coordinating discharge services: Greater than 30 minutes Status at Discharge Functional status at discharge: independent ambulation Overall status at discharge: patient is progressing back to baseline Mental Status: mental status grossly normal Speech and Movement: speech and movement normal Mood: congruent mood Affect: normal affect Exam Narrative Exam Narrative: General: Elderly female lying in bed. Appears tired. Interactive, pleasant. HEENT: EOMI, MMM Cardiovascular: RRR, no murmur. Lungs: CTAB Gastrointestinal: soft, nontender, nondistended Extremities: no edema BLEs Psych Mental Status: mental status grossly normal Speech and Movement: speech and movement normal Mood: congruent mood Affect: normal affect DS: Data Vitals/I&O Vitals and I&O: Vital Signs Temperature 37.2 C 02/09/22 12:01 Temperature Source Tympanic 02/09/22 12:01 Pulse 71 02/09/22 12:01 Pulse Rhythm Regular 02/09/22 07:30 Pulse 88 02/03/22 21:01 Respiratory Rate 16 02/09/22 12:01 Respiratory Effort Non-Labored 02/09/22 07:30 Respiratory Depth Normal 02/09/22 07:30 Respiratory Pattern Normal 02/09/22 07:30 Blood Pressure 169/81 H 02/09/22 12:01 Blood Pressure Mean 62 02/03/22 21:00 Blood Pressure Position Supine 02/03/22 15:11 Pulse Oximetry 95 02/09/22 12:01 Oxygen Delivery Method Room Air 02/09/22 12:01 Oxygen Flow Rate 0 02/09/22 12:01 Pain Level 3 02/09/22 09:05 Comment 02/09/22 09:05 Intake & Output 02/08/22 02/09/22 02/09/22 23:59 11:59 23:59 Intake Total 360 / 410 Balance 360 / 410 Weight 69.3 kg Intake: Oral 360 / 360 Other: Urine Color Yellow Yellow Yellow Urine Appearance Clear Clear Urine Odor Normal Normal Comment Void to toilet PT STATES VOIDED IN TOILET WITHOUT DIFFICULTY Stool Size Small Small Stool Characteristics Formed Soft Brown Brown Voiding Methods Toilet Toilet Toilet Data Completed and Pending Labs on day of discharge: Labs from last 24 hours 02/09/22 06:25 APTT 30.0 H Preliminary micro results at discharge 02/05/22 06:15 Blood Culture - Preliminary Blood NO GROWTH 96 HOURS 02/05/22 06:05 Blood Culture - Preliminary Blood NO GROWTH 96 HOURS PFSH All Active Problems Sepsis (Acute) Trigeminal neuralgia of right side of face (Acute) Discharge planning issues (Acute) DVT prophylaxis (Acute) Hypomagnesemia (Acute) Elevated d-dimer (Acute) KEYLA (acute kidney injury) (Acute) Acute CHF (Acute) Atrial fibrillation with rapid ventricular response (Acute) Essential hypertension (Chronic) Hyperlipidemia (Chronic) Hypothyroidism (Chronic) Vaginal atrophy (Chronic 11/09/17) Rx with vaginal Estrogen cream. Expense of vaginal estrogen cream was an issue Chronic vulvitis (Chronic) Long-standing approximately 3 years duration 09/2017 briefly used vaginal Premarin and triamcinolone topical steroid with improvement. 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 Dermatitis (Acute) Chronic heartburn (Chronic) Advance directive declined by patient (Acute) Medical History Acute vulvitis 02/20/2019. Developed into lesions. PCR: HSV2. Patient advised to notify the office in the event of another flare Postherpetic neuralgia Surgical History S/P appendectomy S/P left oophorectomy For ovarian cyst S/P tonsillectomy and adenoidectomy S/P tubal ligation (~1978) Status post left shoulder hemiarthroplasty (03/30/17) Hemiarthroplasty left shoulder using humeral CAP prosthesis Family History Mother , at 87 Essential hypertension Heart disease Stroke Atrial fibrillation Father , at 78 Essential hypertension Heart disease Asthma Type 2 diabetes mellitus Chronic kidney disease Myocardial infarction Hyperlipidemia Brother No problems noted. Brother , at 54 Alcohol abuse Type 2 diabetes mellitus Hepatitis C Liver disease Sister Schizophrenia Hypothyroidism Son Schizophrenia Son Bipolar disorder Alcohol abuse Substance abuse Maternal Grandfather No problems noted. Maternal Grandmother Heart disease Paternal Grandfather No problems noted. Paternal Grandmother No problems noted. Social History Smoking/Tobacco Use Status: Never Second Hand Exposure: Yes Smoking risk assessment performed?: Yes Alcohol Intake: never Drug use: Never Substance use type: does not use Household members: children Housing: house Pets and animals: Yes Pets and animals: cat(s) Sexually active: No Do you think of yourself as: straight/heterosexual Current gender identity: male and decline to answer What is your relationship status?: How often do you talk on the phone with friends or family?: decline to answer How often do you get together with friends or relatives?: decline to answer How often do you attend confucianist or oriental orthodox services?: decline to answer Do you belong to any clubs or organized social groups?: no Panel score (0-1 are the most socially isolated patients): 0 What type of physical activity do you participate in: walking Duration: < 15 minutes/day Frequency: daily Gill/Latter-Day: Protestant Special gill needs: No Seatbelt use: always Helmet use: No Drive intox or ride w/intox line haul driver: No Do you feel safe at home: Yes Do you feel safe in your relationship?: Yes Female Reproductive History Menstrual Menopause type: natural Date of menopause: 03/23/95 History History 2 Para 2 Hx # Term Pregnancies Multiple births Hx # Pregnancies Ectopic pregnancies AB induced Hx Number of Living Children 2 AB spontaneous
--- NOTE | 2022-02-09 14:19 | CMDISCH_ITS ---
- If Service Date Differs Date of service: 02/09/22 Time of Service: 14:19 LACE Index Scoring Tool - Questions: Length of Stay (in days): 4 - 6 Acuity (Admit via E.D.?): Yes E.D. Visits: 1 - Answers: Total Score: 8 Risk of Readmission: Low Risk Care Management Discharge Reason for Hospitalization: Sepsis Discharge Plan: Sujata is discharged home via private vehicle with son. New RX's are sent to [facility] in [facility]. Eliquis is covered $0 for 30 days. Prior auth for medication was submitted and still pending. New [facility] PT services are ordered. Sujata will call her PCP on Thursday to schedule a follow up appointment, which is recommended within 2 weeks. Sujata will return to the ER with new or worsening symptoms. Patient/Family Education Needs: Review discharge instructions, limitations, medications and plan to follow up with community providers. Discuss ask me three and goals of self care. Services Needed at Discharge: Home Health Care Services ([facility] PT, Face to Face complete, CM notified [facility].)
== END 2022-02-09 14:49 | disposition home health service (06) | DRG 872 ==
LOC: ER 10:54 → ICU 11:45 → MS 21:33
PROVIDERS: Family Medicine; General Practice; Admitting Provider Internal Medicine; Emergency Provider Student in an Organized Health Care Education/Training Program; PCP Nurse Practitioner Family; Visit Provider Internal Medicine
DX: A41.51 Sepsis due to Escherichia coli [E. coli] (principal); N17.9 Acute kidney failure, unspecified; N39.0 Urinary tract infection, site not specified; I48.91 Unspecified atrial fibrillation; E86.0 Dehydration; E78.5 Hyperlipidemia, unspecified; E03.9 Hypothyroidism, unspecified; R53.1 Weakness; G50.0 Trigeminal neuralgia; E83.42 Hypomagnesemia; R79.1 Abnormal coagulation profile; I50.9 Heart failure, unspecified; I11.0 Hypertensive heart disease with heart failure; F41.1 Generalized anxiety disorder; R73.03 Prediabetes; Z66 Do not resuscitate
CPT/HCPCS: 36410; 36415; 76770; 80048; 80053; 80061; 84145; 85027; 87040; 87077; 87637; 93005; 93306; 96361; 96365; 96375; 97110; 97162; 97530; 99292; 70450; 71045; 71046; 81003; 81015; 82565; 83605; 83735; 83880; 84300; 84443; 84484; 85025; 85379; 85610; 85730; 86140; 87086; 87186; 93010; 93970; 99223; 99232; 99233; 99239; J0610; J2405; J3475; J3480

== ENCOUNTER 2022-02-25 09:02 | Outpatient (CLI) | payer MEDICARE, MEDICAID, SELFPAY | END 2022-02-25 09:03 | disposition home or self-care (01) | PROVIDERS: PCP Nurse Practitioner Family; Visit Provider Nurse Practitioner Family | DX: I48.91 Unspecified atrial fibrillation (principal) | CPT/HCPCS: 93270 ==

== ENCOUNTER 2022-03-25 10:31 | Outpatient (CLI) | payer MEDICARE, MEDICAID, SELFPAY ==
--- NOTE | 2022-03-25 11:08 | W.CARDEVENT ---
Date of service: 03/25/22 Time of Service: 11:08 Cardiac Event Recorder Referring Provider:: Teofilo Perkins Indications:: Atrial fibrillation Cardiac Event Note: This is a cardiac event monitor ordered for atrial fibrillation Patient was monitored for a total period of 3 days 23 hours Rhythm throughout was sinus. Average heart rate was 74. There was no bradycardia. Maximum heart rate was 129 There was no atrial fibrillation, no high-grade AV block, no pauses greater than 3 seconds There were no apparent patient's symptoms
== END 2022-03-25 10:32 | disposition home or self-care (01) ==
LOC: CARDOPNVT 10:31
PROVIDERS: PCP Nurse Practitioner Family; Visit Provider Internal Medicine Cardiovascular Disease
DX: I48.91 Unspecified atrial fibrillation (principal)
CPT/HCPCS: 93272

== ENCOUNTER 2022-03-28 08:58 | Outpatient (CLI) | payer MEDICARE, MEDICAID, SELFPAY ==
[2022-03-28 12:53] LABS: Abs Immature Grans 0.01 10^3/uL (0.0-0.06); Absolute Basophil Count 0.02 10^3/uL (0.0-0.2); Absolute Eosinophil Count 0.01 10^3/uL (0.0-0.7); Absolute Lymphocyte Count 1.56 10^3/uL (1.2-3.4); Absolute Monocyte Count 0.41 10^3/uL (0.1-0.8); Absolute Neutrophil Count 2.44 10^3/uL (1.2-6.7); Basophils % 0.4; Eosinophils % 0.2; HCT 34.4 % (36.0-46.0); HGB 11.3 g/dL (11.2-15.7); Immature Grans % 0.2; Lymphocytes % 35.1; MCH 30.3 pg (27.0-33.0); MCHC 32.8 % (32.0-36.0); MCV 92 fL (80-95); MPV 10.1 fL (8.0-11.0); Monocytes % 9.2; Neutrophils % 54.9; Platelet Count 258 10^3/uL (130-400); RBC 3.73 10^6/uL (3.93-5.22); RDW 12.9 % (11.7-14.6); RDW-SD 43.8 fL; WBC 4.45 10^3/uL (4.4-10.8)
[2022-03-28 13:22] LABS: Iron 83 ug/dL (50-170); Total Iron Binding Capacity 245 ug/dL (250-450)
[2022-03-28 13:31] LABS: ALT 23 U/L (14-59); AST 23 U/L (15-37); Albumin 3.9 g/dL (3.4-5.0); Alkaline Phosphatase 98 U/L (46-116); Anion Gap 8.1 mmol/L (3-11); BUN 22 mg/dL (7-18); Bilirubin, Total 0.6 mg/dL (0.2-1.0); CO2 29.9 mmol/L (21.0-32.0); CREATININE 1.2 mg/dL (0.55-1.02); Calcium 9.4 mg/dL (8.5-10.1); Chloride 102 mmol/L (98-107); Ferritin 207 ng/mL (8-252); Folate 5.3 ng/mL (8.6-20.0); Glucose 105 mg/dL (74-106); Potassium 3.6 mmol/L (3.5-5.1); Sodium 140 mmol/L (136-145); Vitamin B12 419 pg/mL (193-986)
[2022-03-31 09:47] LABS: Transferrin 200 mg/dL (201-352)
[2022-03-31 12:01] LABS: Hemoglobin A1C 5.7 % (<5.7)
== END 2022-03-28 08:59 | disposition home or self-care (01) ==
LOC: LOS 08:58
PROVIDERS: PCP Nurse Practitioner Family; Visit Provider Nurse Practitioner Family
DX: R73.03 Prediabetes (principal); D64.9 Anemia, unspecified; I48.91 Unspecified atrial fibrillation; E78.2 Mixed hyperlipidemia; I10 Essential (primary) hypertension; E03.9 Hypothyroidism, unspecified; Z79.899 Other long term (current) drug therapy
CPT/HCPCS: 36415; 80053; 82607; 82728; 82746; 83036; 83540; 83550; 84466; 85025

== ENCOUNTER 2022-03-28 11:46 | Outpatient (REF) | payer MEDICARE, MEDICAID, SELFPAY | END 2022-03-28 11:47 | disposition home or self-care (01) | LOC: LBN 11:46 | PROVIDERS: PCP Nurse Practitioner Family; Visit Provider Nurse Practitioner Family | DX: R39.15 Urgency of urination (principal) | CPT/HCPCS: 87086 ==

== ENCOUNTER 2022-04-03 04:13 | Outpatient (CLI) | payer MEDICARE, MEDICAID, SELFPAY ==
[2022-04-03 12:49] LABS: Calculated LDL 71 mg/dL (<100); Cholesterol 157 mg/dL (<200); HDL Cholesterol 41 mg/dL (40-60); Triglyceride 229 mg/dL (<150)
== END 2022-04-03 04:14 | disposition home or self-care (01) ==
LOC: LOS 04:13
PROVIDERS: PCP Nurse Practitioner Family; Visit Provider Nurse Practitioner Family
DX: E78.2 Mixed hyperlipidemia (principal)
CPT/HCPCS: 36415; 80061

== ENCOUNTER → 2022-04-11 11:06 | Outpatient (BNVA) | payer MEDICARE, MEDICAID, SELFPAY | PROVIDERS: PCP Nurse Practitioner Family; Referring Provider Nurse Practitioner Family; Visit Provider Internal Medicine Cardiovascular Disease | DX: I48.0 Paroxysmal atrial fibrillation (principal) | CPT/HCPCS: 93005; 99203; 99214 ==

== ENCOUNTER 2022-04-11 11:10 | Outpatient (CLI) | payer MEDICARE, MEDICAID, SELFPAY ==
--- NOTE | 2022-04-11 11:00 | RT.EKG_ITS ---
APPROVED REPORT Exam: Resting ECG Reason for Exam: afib Patient Location: O HR:82 bpm ECG Measurements Heart Rate 82 AXIS GA 185 P 55 QRSd 85 QRS 60 QT 349 T -35 QTc 408 Conclusion Sinus rhythm...normal P axis, V-rate 50- 99 Borderline T abnormalities, diffuse leads...T flat/neg
== END 2022-04-11 11:11 | disposition home or self-care (01) ==
LOC: DI.CARD 11:11
PROVIDERS: PCP Nurse Practitioner Family; Visit Provider Internal Medicine Cardiovascular Disease
DX: I48.91 Unspecified atrial fibrillation (principal)
CPT/HCPCS: 93010

== ENCOUNTER 2022-07-01 01:40 | Outpatient (CLI) | payer MEDICARE, MEDICAID, SELFPAY ==
[2022-07-01 12:50] LABS: Anion Gap 7.2 mmol/L (3-11); BUN 20 mg/dL (7-18); CO2 30.8 mmol/L (21.0-32.0); CREATININE 1.4 mg/dL (0.55-1.02); Calcium 9.5 mg/dL (8.5-10.1); Calculated LDL 74 mg/dL (<100); Chloride 104 mmol/L (98-107); Cholesterol 165 mg/dL (<200); Estimated GFR 39.73 (mL/min/1.73m2); Glucose 123 mg/dL (74-106); HDL Cholesterol 49 mg/dL (40-60); Potassium 3.8 mmol/L (3.5-5.1); Sodium 142 mmol/L (136-145); TSH (W/Ref FT4) 3.79 uIU/mL (0.36-3.74); Triglyceride 210 mg/dL (<150)
[2022-07-01 13:00] LABS: Hemoglobin A1C 6.3 % (<5.7)
[2022-07-01 13:10] LABS: FREE T4 0.94 ng/dL (0.76-1.46)
== END 2022-07-01 01:41 | disposition home or self-care (01) ==
LOC: LOS 01:40
PROVIDERS: PCP Nurse Practitioner Family; Visit Provider Nurse Practitioner Family
DX: I10 Essential (primary) hypertension (principal); E03.9 Hypothyroidism, unspecified; R73.03 Prediabetes; E78.2 Mixed hyperlipidemia
CPT/HCPCS: 36415; 80048; 80061; 83036; 84439; 84443

== ENCOUNTER 2022-09-12 00:48 | Outpatient (CLI) | payer MEDICARE, MEDICAID, SELFPAY ==
--- NOTE | 2022-09-12 07:15 | DI.MAMMO_ITS ---
Exam(s) MAMMO SCREENING EXAM: MAMMO SCREENING CLINICAL HISTORY: screening, Z12.39 TECHNIQUE: Bilateral full field digital CC and MLO mammographic images were obtained with 3D tomosyn thesis and utilizing computer aided detection (CAD). COMPARISON: Available for comparison. FINDINGS: Masses/Architectural Distortion: None seen. Microcalcifications: No suspicious pleomorphic-type are seen. Skin Thickening/Nipple Retraction: None. IMPRESSION: 1. No significant interval change with no specific features of malignancy noted. 2. Unless there is more urgent need, screening mammography is recommended, as per [place] [employer] guidelines. BI-RADS Category 1 - Negative Breast Density - Category B - Scattered areas of fibroglandular density Breast density category C or D implies that the patient has dense breast tissue. Dense breast tissue is very common and is not abnormal but dense breast tissue can make it harder to find cancer on a ma mmogram. Also, dense breast tissue may increase their breast cancer risk. This information about the result of the mammogram report was provided to the patient to raise their awareness. Use this report when you speak with the patient about their risks for breast cancer, which includes their family hist ory. At that time, you may recommend for more screening tests (Ultrasound or MRI) as they might be us eful based on their risk. A negative radiographic report should not delay biopsy if a dominant or clinically suspicious mass is present. Up to ten percent of cancers are not identified on mammography. A negative report may reinforce clinical impression. Adenosis and dense breasts may obscure an underlying neoplasm. False positive reports average 6 to 10%. Patient will receive a letter notifying them of these results.
== END 2022-09-12 01:08 ==
LOC: DI 00:48
PROVIDERS: PCP Nurse Practitioner Family; Visit Provider Nurse Practitioner Family
DX: R73.03 Prediabetes (principal); Z12.31 Encounter for screening mammogram for malignant neoplasm of breast
CPT/HCPCS: 77063; 77067

== ENCOUNTER → 2022-10-10 10:39 | Outpatient (BNVA) | payer MEDICARE, MEDICAID, SELFPAY | PROVIDERS: PCP Nurse Practitioner Family; Referring Provider Nurse Practitioner Family; Visit Provider Internal Medicine Cardiovascular Disease | DX: I48.0 Paroxysmal atrial fibrillation (principal); Z79.01 Long term (current) use of anticoagulants; I10 Essential (primary) hypertension | CPT/HCPCS: 99213 ==

== ENCOUNTER 2022-11-11 09:38 | Emergency (ER) | payer MEDICARE, MEDICAID, SELFPAY ==
[2022-11-11 09:43] VITALS: BP 142/78; PULSE 85; RESP 18; TEMP 36.4; O2SAT 99
--- NOTE | 2022-11-11 10:00 | RT.EKG_ITS ---
APPROVED REPORT Exam: Resting ECG Reason for Exam: Left side pain Patient Location: E HR:74 bpm ECG Measurements Heart Rate 74 AXIS RI 225 P 28 QRSd 90 QRS 17 QT 419 T 0 QTc 457 Conclusion Sinus rhythm...normal P axis, V-rate 60- 99 Atrial premature complexes...SV complexes w/ short R-R intvls Prolonged RI interval...RI >220, V-rate 50- 90 sinus rhtyhm, normal axis, normal intervals, PAC
--- NOTE | 2022-11-11 10:11 | ED.GENADUL_ITS ---
Discharge Plan Disposition Patient Disposition: Home Condition: Stable Discharge Details Clinical Impression: Renal cyst, Hernia, hiatal, Hematuria Primary Care Provider: Teofilo Steele ED Provider: Niurka Barnes Home Meds and New Rx's Prescriptions: New baclofen 5 mg tablet 5 mg PO BID PRN (Reason: muscle spasm) Qty: 7 0RF Rx Instructions: Take 1 tablet by mouth twice daily as needed for pain. Continued acetaminophen 500 mg tablet 1,000 mg PO BID PRN triamcinolone acetonide 0.5 % cream 1 applic topical BID Qty: 45 2RF Rx Instructions: Apply thin layer 2x per day lower legs estradiol 0.01 % (0.1 mg/gram) cream 0.25 g vaginal DAILY Qty: 42.5 0RF Rx Instructions: Massage a pea-sized amount around the skin around the vaginal opening, the labia and on all the irritated areas. losartan 100 mg tablet 100 mg PO DAILY Qty: 90 3RF levothyroxine 75 mcg tablet 75 mcg PO DAILY Qty: 90 4RF rosuvastatin 10 mg tablet See Rx Instructions .ROUTE .COMPLEX Qty: 90 3RF Dose Instruction: TAKE 1 TABLET(10 MG) BY MOUTH EVERY DAY Rx Instructions: TAKE 1 TABLET(10 MG) BY MOUTH EVERY DAY hydrochlorothiazide 25 mg tablet 25 mg PO DAILY Qty: 90 3RF No Action doxepin 25 mg capsule 25 mg PO QHS Qty: 30 6RF famotidine 20 mg tablet 20 mg PO DAILY Qty: 90 3RF gabapentin 400 mg capsule 400 mg PO TID Qty: 270 3RF Rx Instructions: dose change methylprednisolone 4 mg tablets,dose pack 4 mg PO DAILY Qty: 21 0RF Discharge Instructions Instructions: Hiatal Hernia (ED), Hematuria (ED) Additional Instructions: CT shows that you have a large hiatal hernia, you also have some cysts on your kidneys. Please follow-up with urology within the next 1 to 2 days, and or your PCP within the next 3 to 5 days. At this time you do not not qualify for admission. Please take the baclofen as directed. Please take Tylenol with food every 4-6 hours as needed for pain and swelling. You may also try lidocaine patches which you can get [id number]. Follow up with primary care provider in 3-5 days. Return to ED sooner if any worsening or concerns. Increase oral fluids. Referrals: Teofilo Steele NP [Primary Care Provider] - 2 days Bobbi Chandra MD [ [facility] STAFF PHYSICIAN] - 1 week Discharge Data Discharge Date/Time-TO BE ENTERED AT DEPARTURE: 11/11/22 16:41 Medical Decision Making 72-year-old female with a past medical history atrial fib, CHF, heartburn, hyperlipidemia, hypothyroidism hypertension who was recently taken off Eliquis approximately month ago presents to the ER with chief complaint of left-sided flank pain which radiates down into her left leg she reports that it began last night acutely. Denies any known injury. She does report some dizziness and lightheadedness, no nausea vomiting. She reports constant pain she denies any radiation into her chest. She did take her normal medications this morning which she reports there are 4 of them. She did take 2 Tylenol last night nothing for pain this morning. On exam she does have some left CVA tenderness with palpation, no midline tenderness with palpation. Work-up ordered including CBC CMP, urinalysis, EKG troponin, Zofran lidocaine patch did consider morphine however patient is allergic to tramadol. Differential diagnosis includes not limited to CAD, kidney stone, musculoskeletal strain, diverticulitis as she is somewhat tender in the left lower quadrant of her abdomen, pancreatitis however patient does not endorse alcohol or drug use. Will consider CT renal colic. 25 mcg of fentanyl IV given. CT shows benign renal masses, mid renal mass see results below. I did speak with hospitalist group [employer] who is going to discuss with Dr. Poon at this time they feel that she does not meet criteria due to chronic changes. Patient instructed to follow-up with PCP given instructions on hiatal hernia hematuria and renal cyst. was given baclofen and lidocaine patch. This text was generated using [employer] dictation system, please disregard any oddities of phrase or misspellings. Imaging Data Radiologic Study: Imaging: CT Scan Radiologist's impression: FINDINGS: CHEST: LUNGS: There are no confluent infiltrates nor pleural effusions. Some dependent markings are noted in the posterior right lung.. There is a benign-appearing 2- 3 millimeter pleural base nodule in medial aspect of the right upper lobe sub apical region (series 2/image 10). No other nodules evident. No significant focal findings in the trachea and mainstem bronchi. There is no bronchiectasis. MEDIASTINUM: No obvious hilar nor mediastinal adenopathy. There is a large retrocardiac hiatal hernia which measures 6.5 cm wide by 2.5 cm AP by 3 cm cephalocaudal. CARDIAC: Heart size is normal. There is no pericardial effusion.Caliber of the thoracic aorta is within normal limits. OSSEOUS: No significant osseous lesions.Left shoulder prosthesis. No acute fractures evident. At. ABDOMEN: There is no ascites. LIVER: There are no obvious focal hepatic lesions evident of this noninfused study. GALLBLADDER/BILIARY: No obvious gallbladder pathology. CBD is not dilated. PANCREAS: No evidence of obvious pancreatic mass nor dilatation of the pancreatic duct. SPLEEN: Spleen is not enlarged. No obvious intrasplenic lesions. ADRENALS: Right adrenal gland unremarkable. There is thickening of the genu of the left adrenal gland measuring 8 x 8 mm. Possible small adenoma. KIDNEYS: No calculi nor hydronephrosis. No obvious solid renal masses. There is a large cyst in the inferior pole of the left kidney which measures 6.5 x 6.3 cm. There is a smaller cyst in the lateral cortex of the opposite-right kidney which measures 2.9 x 2.6 cm. No solid renal masses. No calculi. No hydronephrosis. ABDOMINAL AORTA: Abdominal aorta is not enlarged. LYMPH NODES: There is no retroperitoneal nor para-aortic adenopathy. ABDOMINAL WALL/GI: Bilateral fat only containing inguinal hernias. No evidence of bowel obstruction. PELVIS: LYMPH NODES: There is no intrapelvic nor inguinal adenopathy. GI: There is diverticulosis of the colon. There appears to be sparing of the sigmoid..No evidence of sigmoid diverticulitis. Appendix is not well seen. No evidence of acute appendicitis. URINARY BLADDER: No calculi nor obvious masses evident REPRODUCTIVE: Uterus and adnexal regions unremarkable. No adnexal masses nor free fluid in the pelvis. OSSEOUS: No significant osseous lesions. No fractures IMPRESSION: 1. No significant acute findings in the chest, abdomen, and pelvis. 2. Large retrocardiac hiatal hernia. Measurements as above. 3. Diverticulosis of most of the colon with sparing of the sigmoid. No evidence of obvious acute diverticulitis. 4. Benign renal cysts measuring up to 6.5 cm (left side inferior pole). No solid renal masses. No calculi. No hydronephrosis no hydroureter evident. Lab Data Lab results reviewed: Yes I reviewed the patient's lab results. Labs: Laboratory Tests Range/Units 11/11/22 11/11/22 11/11/22 10:28 10:28 10:28 WBC (4.4-10.8) 10^3/uL 4.96 RBC (3.93-5.22) 10^6/uL 4.06 Hgb (11.2-15.7) g/dL 12.3 Hct (36.0-46.0) % 36.2 MCV (80-95) fL 89 MCH (27.0-33.0) pg 30.3 MCHC (32.0-36.0) % 34.0 RDW (11.7-14.6) % 12.2 Plt Count (130-400) 10^3/uL 250 MPV (8.0-11.0) fL 10.0 Immature Gran % 0.2 Neutrophils % 54.1 Lymphocytes % 30.6 Monocytes % 9.5 Eosinophils % 4.6 Basophils % 1.0 Nucleated RBC % (0.0-0.3) % 0.0 Absolute Neutrophils (1.2-6.7) 10^3/uL 2.68 Absolute Lymphocytes (1.2-3.4) 10^3/uL 1.52 Absolute Monocytes (0.1-0.8) 10^3/uL 0.47 Absolute Eosinophils (0.0-0.7) 10^3/uL 0.23 Absolute Basophils (0.0-0.2) 10^3/uL 0.05 Sodium (136-145) mmol/L 141 Potassium (3.5-5.1) mmol/L 3.7 Chloride (98-107) mmol/L 104 Carbon Dioxide (21.0-32.0) mmol/L 29.2 Anion Gap (3-11) mmol/L 7.8 BUN (7-18) mg/dL 20 H Creatinine (0.55-1.02) mg/dL 1.3 H Est GFR (CKD-EPI 2020) (mL/min/1.73m2) 43.15 Glucose (74-106) mg/dL 111 H Calcium (8.5-10.1) mg/dL 9.1 Total Bilirubin (0.2-1.0) mg/dL 0.5 AST (15-37) U/L 14 L ALT (14-59) U/L 15 Alkaline Phosphatase (46-116) U/L 83 Troponin I (<or=60) ng/L < 50 Total Protein (6.4-8.2) g/dL 7.7 Albumin (3.4-5.0) g/dL 3.8 Urine Color (Yellow) Urine Clarity (Clear) Urine pH (5-8) Ur Specific [place] (1.005-1.025) Urine Protein (Negative) mg/dL Urine Ketones (Negative) mg/dL Urine Blood (Negative) Urine Nitrite (Negative) Urine Bilirubin (Negative) Urine Urobilinogen (Up to 0.2) mg/dL Ur Leukocyte Esterase (Negative) Urine RBC (0-2) HPF Urine WBC (0-5) HPF Ur Epithelial Cells (Negative) HPF Urine Crystals (Negative) HPF Urine Bacteria (Negative) HPF Urine Casts (Negative) LPF Urine Mucus (Negative) Ur Culture Indicated? Urine Glucose (Negative) mg/dL Range/Units 11/11/22 11:27 WBC (4.4-10.8) 10^3/uL RBC (3.93-5.22) 10^6/uL Hgb (11.2-15.7) g/dL Hct (36.0-46.0) % MCV (80-95) fL MCH (27.0-33.0) pg MCHC (32.0-36.0) % RDW (11.7-14.6) % Plt Count (130-400) 10^3/uL MPV (8.0-11.0) fL Immature Gran % Neutrophils % Lymphocytes % Monocytes % Eosinophils % Basophils % Nucleated RBC % (0.0-0.3) % Absolute Neutrophils (1.2-6.7) 10^3/uL Absolute Lymphocytes (1.2-3.4) 10^3/uL Absolute Monocytes (0.1-0.8) 10^3/uL Absolute Eosinophils (0.0-0.7) 10^3/uL Absolute Basophils (0.0-0.2) 10^3/uL Sodium (136-145) mmol/L Potassium (3.5-5.1) mmol/L Chloride (98-107) mmol/L Carbon Dioxide (21.0-32.0) mmol/L Anion Gap (3-11) mmol/L BUN (7-18) mg/dL Creatinine (0.55-1.02) mg/dL Est GFR (CKD-EPI 2020) (mL/min/1.73m2) Glucose (74-106) mg/dL Calcium (8.5-10.1) mg/dL Total Bilirubin (0.2-1.0) mg/dL AST (15-37) U/L ALT (14-59) U/L Alkaline Phosphatase (46-116) U/L Troponin I (<or=60) ng/L Total Protein (6.4-8.2) g/dL Albumin (3.4-5.0) g/dL Urine Color (Yellow) Straw Urine Clarity (Clear) Clear Urine pH (5-8) 7.0 Ur Specific [place] (1.005-1.025) 1.015 Urine Protein (Negative) mg/dL Negative Urine Ketones (Negative) mg/dL Negative Urine Blood (Negative) Moderate H Urine Nitrite (Negative) Negative Urine Bilirubin (Negative) Negative Urine Urobilinogen (Up to 0.2) mg/dL 0.2 Ur Leukocyte Esterase (Negative) Negative Urine RBC (0-2) HPF 5-10 H Urine WBC (0-5) HPF Negative Ur Epithelial Cells (Negative) HPF Rare Urine Crystals (Negative) HPF Negative Urine Bacteria (Negative) HPF Negative Urine Casts (Negative) LPF Negative Urine Mucus (Negative) Negative Ur Culture Indicated? No Urine Glucose (Negative) mg/dL Negative HPI General Mode of arrival: wheelchair . Date/Time Provider Initiated Documentation: 11/11/22 09:56 . Limitations to Documentation: no limitations . Information obtained by: patient, family, RN notes reviewed and old records reviewed . HPI Narrative: 72-year-old female with a past medical history atrial fib, CHF, heartburn, hyperlipidemia, hypothyroidism hypertension who was recently taken off Eliquis approximately month ago presents to the ER with chief complaint of left-sided flank pain which radiates down into her left leg she reports that it began last night acutely. Denies any known injury. She does report some dizziness and lightheadedness, no nausea vomiting. She reports constant pain she denies any radiation into her chest. She did take her normal medications this morning which she reports there are 4 of them. She did take 2 Tylenol last night nothing for pain this morning. On exam she does have some left CVA tenderness with palpation, no midline tenderness with palpation. Related Data Home Medications Medication Instructions Recorded Confirmed acetaminophen 500 mg tablet 1,000 mg PO BID PRN 01/03/19 11/12/22 triamcinolone acetonide 0.5 % 1 applic topical BID dermatitis 01/08/22 11/12/22 topical cream #45 grams losartan 100 mg tablet 100 mg PO DAILY #90 tabs 01/10/22 11/12/22 levothyroxine 75 mcg tablet 75 mcg PO DAILY #90 tab-caps 02/24/22 11/12/22 rosuvastatin 10 mg tablet See Rx Instructions .Route 03/12/22 11/12/22 .COMPLEX #90 tabs hydrochlorothiazide 25 mg tablet 25 mg PO DAILY #90 tabs 03/14/22 11/12/22 estradiol 0.01% (0.1 mg/gram) 0.25 g vaginal DAILY #42.5 grams 10/20/22 11/12/22 vaginal cream baclofen 5 mg tablet 5 mg PO BID PRN muscle spasm #7 11/11/22 11/12/22 tabs doxepin 25 mg capsule 25 mg PO QHS #30 caps 11/12/22 11/12/22 famotidine 20 mg tablet 20 mg PO DAILY #90 tabs 11/12/22 11/12/22 gabapentin 400 mg capsule 400 mg PO TID #270 caps 11/12/22 11/12/22 methylprednisolone 4 mg tablets in 4 mg PO DAILY #21 dose pk 11/12/22 11/12/22 a dose pack Previous Rx's Medication Instructions Recorded triamcinolone acetonide 0.5 % 1 applic topical BID dermatitis 01/08/22 topical cream #45 grams losartan 100 mg tablet 100 mg PO DAILY #90 tabs 01/10/22 levothyroxine 75 mcg tablet 75 mcg PO DAILY #90 tab-caps 02/24/22 rosuvastatin 10 mg tablet See Rx Instructions .Route 03/12/22 .COMPLEX #90 tabs hydrochlorothiazide 25 mg tablet 25 mg PO DAILY #90 tabs 03/14/22 estradiol 0.01% (0.1 mg/gram) 0.25 g vaginal DAILY #42.5 grams 10/20/22 vaginal cream baclofen 5 mg tablet 5 mg PO BID PRN muscle spasm #7 11/11/22 tabs doxepin 25 mg capsule 25 mg PO QHS #30 caps 11/12/22 famotidine 20 mg tablet 20 mg PO DAILY #90 tabs 11/12/22 gabapentin 400 mg capsule 400 mg PO TID #270 caps 11/12/22 methylprednisolone 4 mg tablets in 4 mg PO DAILY #21 dose pk 11/12/22 a dose pack Allergies Allergy/AdvReac Type Severity Reaction Status Date / Time tramadol AdvReac Intermediate Nausea, Verified 10/10/22 10:58 dizziness lisinopril AdvReac Mild COUGH Verified 10/10/22 10:58 General Stated Complaint: FlankPain MARIA: 3 Review of Systems All systems reviewed & are unremarkable except as noted in HPI and below ENT Ears, Nose, Mouth, and Throat: Reports dizziness Neurologic Neurologic: Reports dizziness PFSH All Active Problems (Updated 11/12/22 @ 09:01 by Teofilo Perkins NP) Essential hypertension (Chronic) Hyperlipidemia (Chronic) Hypothyroidism (Chronic) Vaginal atrophy (Chronic 11/09/17) Rx with vaginal Estrogen cream. Expense of vaginal estrogen cream was an issue Chronic vulvitis (Chronic) Long-standing approximately 3 years duration 09/2017 briefly used vaginal Premarin and triamcinolone topical steroid with improvement. 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 Dermatitis (Acute) Chronic heartburn (Chronic) Advance directive declined by patient (Acute) Acute CHF (Acute) Atrial fibrillation with rapid ventricular response (Acute) Paroxysmal atrial fibrillation (Acute) Chronic anticoagulation (Acute) Neck pain on right side (Acute) Weakness (Acute) Left shoulder pain (Acute) Left hip pain (Acute) Renal cyst (Acute) Hernia, hiatal (Chronic) Hematuria (Acute) Low back pain (Acute) CKD (chronic kidney disease) (Chronic) Medical History Acute vulvitis 02/20/2019. Developed into lesions. PCR: HSV2. Patient advised to notify the office in the event of another flare Postherpetic neuralgia Surgical History S/P appendectomy S/P left oophorectomy For ovarian cyst S/P tonsillectomy and adenoidectomy S/P tubal ligation (~1978) Status post left shoulder hemiarthroplasty (03/30/17) Hemiarthroplasty left shoulder using humeral CAP prosthesis Family History Mother , at 87 Essential hypertension Heart disease Stroke Atrial fibrillation Father , at 78 Essential hypertension Heart disease Asthma Type 2 diabetes mellitus Chronic kidney disease Myocardial infarction Hyperlipidemia Brother No problems noted. Brother , at 54 Alcohol abuse Type 2 diabetes mellitus Hepatitis C Liver disease Sister Schizophrenia Hypothyroidism Son Schizophrenia Son Bipolar disorder Alcohol abuse Substance abuse Maternal Grandfather No problems noted. Maternal Grandmother Heart disease Paternal Grandfather No problems noted. Paternal Grandmother No problems noted. Social History Smoking/Tobacco Use Status: Never Second Hand Exposure: Yes Smoking risk assessment performed?: Yes Alcohol Intake: never Drug use: Never Substance use type: does not use Caregiver/Support person: No Household members: significant other and children Housing: condominium Communication Needs: None Do you need help understanding health information?: Never Pets and animals: Yes Pets and animals: cat(s) Sexually active: No Do you think of yourself as: straight/heterosexual Current gender identity: male and decline to answer What is your relationship status?: How often do you talk on the phone with friends or family?: once per week How often do you get together with friends or relatives?: once per week How often do you attend orthodox or taoism services?: decline to answer Do you belong to any clubs or organized social groups?: no Panel score (0-1 are the most socially isolated patients): 0 What type of physical activity do you participate in: walking Duration: < 15 minutes/day Frequency: 1-2 times per week Gill/Lutheran: Orthodox Special gill needs: No Seatbelt use: always Helmet use: No Drive intox or ride w/intox public transit bus driver: No Do you feel safe at home: Yes Do you feel safe in your relationship?: Yes Female Reproductive History Menstrual Menopause type: natural Date of menopause: 03/23/95 History History 2 Para 2 Hx # Term Pregnancies Multiple births Hx # Pregnancies Ectopic pregnancies AB induced Hx Number of Living Children 2 AB spontaneous Course Vital Signs Vital signs: Vital Signs Temperature 36.4 C 11/11/22 09:43 Pulse 85 11/11/22 09:43 Respiratory Rate 18 11/11/22 09:43 Blood Pressure 142/78 H 11/11/22 09:43 Pulse Oximetry 99 11/11/22 09:43 Temperature 36.4 C 11/11/22 09:43 Temperature Source Oral 11/11/22 09:43 Pulse 85 11/11/22 09:43 Respiratory Rate 18 11/11/22 09:43 Blood Pressure 142/78 H 11/11/22 09:43 Blood Pressure Position Sitting 11/11/22 09:43 Pulse Oximetry 99 11/11/22 09:43 Oxygen Delivery Method Room Air 11/11/22 09:43 Oxygen Flow Rate 0 11/11/22 09:43 Pain Level 8 11/11/22 09:43
[2022-11-11 10:38] LABS: Abs Immature Grans 0.01 10^3/uL (0.0-0.06); Absolute Basophil Count 0.05 10^3/uL (0.0-0.2); Absolute Eosinophil Count 0.23 10^3/uL (0.0-0.7); Absolute Lymphocyte Count 1.52 10^3/uL (1.2-3.4); Absolute Monocyte Count 0.47 10^3/uL (0.1-0.8); Absolute Neutrophil Count 2.68 10^3/uL (1.2-6.7); Eosinophils % 4.6; HCT 36.2 % (36.0-46.0); HGB 12.3 g/dL (11.2-15.7); Immature Grans % 0.2; Lymphocytes % 30.6; MCH 30.3 pg (27.0-33.0); MCV 89 fL (80-95); Monocytes % 9.5; Neutrophils % 54.1; Platelet Count 250 10^3/uL (130-400); RBC 4.06 10^6/uL (3.93-5.22); RDW 12.2 % (11.7-14.6); WBC 4.96 10^3/uL (4.4-10.8)
--- NOTE | 2022-11-11 10:45 | DI.CT_ITS ---
Exam(s) CT CHEST/ABD/PEL WO EXAM: CT CHEST/ABD/PEL WO CLINICAL HISTORY: Left flank pain, LLQ abd Pain, Dizziness. TECHNIQUE: Imaging Protocol: Axial computed tomography images with coronal and sagittal reformatted images were created and reviewed CONTRAST MATERIAL: Intravenous: none Oral: None COMPARISON: No exams were available for comparison FINDINGS: CHEST: LUNGS: There are no confluent infiltrates nor pleural effusions. Some dependent markings are noted i n the posterior right lung.. There is a benign-appearing 2-3 millimeter pleural base nodule in media l aspect of the right upper lobe sub apical region (series 2/image 10). No other nodules evident. N o significant focal findings in the trachea and mainstem bronchi. There is no bronchiectasis. MEDIASTINUM: No obvious hilar nor mediastinal adenopathy. There is a large retrocardiac hiatal herni a which measures 6.5 cm wide by 2.5 cm AP by 3 cm cephalocaudal. CARDIAC: Heart size is normal. There is no pericardial effusion.Caliber of the thoracic aorta is wit hin normal limits. OSSEOUS: No significant osseous lesions.Left shoulder prosthesis. No acute fractures evident. At. ABDOMEN: There is no ascites. LIVER: There are no obvious focal hepatic lesions evident of this noninfused study. GALLBLADDER/BILIARY: No obvious gallbladder pathology. CBD is not dilated. PANCREAS: No evidence of obvious pancreatic mass nor dilatation of the pancreatic duct. SPLEEN: Spleen is not enlarged. No obvious intrasplenic lesions. ADRENALS: Right adrenal gland unremarkable. There is thickening of the genu of the left adrenal glan d measuring 8 x 8 mm. Possible small adenoma. KIDNEYS: No calculi nor hydronephrosis. No obvious solid renal masses. There is a large cyst in the i nferior pole of the left kidney which measures 6.5 x 6.3 cm. There is a smaller cyst in the lateral cortex of the opposite-right kidney which measures 2.9 x 2.6 cm. No solid renal masses. No calculi. No hydronephrosis. ABDOMINAL AORTA: Abdominal aorta is not enlarged. LYMPH NODES: There is no retroperitoneal nor para-aortic adenopathy. ABDOMINAL WALL/GI: Bilateral fat only containing inguinal hernias. No evidence of bowel obstruction. PELVIS: LYMPH NODES: There is no intrapelvic nor inguinal adenopathy. GI: There is diverticulosis of the colon. There appears to be sparing of the sigmoid..No evidence of sigmoid diverticulitis. Appendix is not well seen. No evidence of acute appendicitis. URINARY BLADDER: No calculi nor obvious masses evident REPRODUCTIVE: Uterus and adnexal regions unremarkable. No adnexal masses nor free fluid in the pelvi s. OSSEOUS: No significant osseous lesions. No fractures IMPRESSION: 1. No significant acute findings in the chest, abdomen, and pelvis. 2. Large retrocardiac hiatal hernia. Measurements as above. 3. Diverticulosis of most of the colon with sparing of the sigmoid. No evidence of obvious acute div erticulitis. 4. Benign renal cysts measuring up to 6.5 cm (left side inferior pole). No solid renal masses. No calculi. No hydronephrosis no hydroureter evident. RADIATION DOSE DELIVERED: 990.33mGy.cm Total DLP DATA REPOSITORY: All CT scans at this facility are submitted to the National Radiology Data Registry (NRDR) Dose Index Registry (DIR) with the [employer] (A[employer]). RADIATION OPTIMIZATION: All CT scans at this facility use at least one of these dose optimization te chniques: automated exposure control; mA and/or kV adjustment per patient size (includes targeted exa ms where dose is matched to clinical indication); or iterative reconstruction.
[2022-11-11] MEDS: Lidocaine 5% Patch 1 PATCH TP (10:51)
[2022-11-11] MEDS: Ondansetron 4 MG/2 ML VIAL IVP (10:52)
[2022-11-11] MEDS: Normal Saline 1,000 ML 150 ML IV (10:52)
[2022-11-11 10:55] LABS: ALT 15 U/L (14-59); AST 14 U/L (15-37); Albumin 3.8 g/dL (3.4-5.0); Alkaline Phosphatase 83 U/L (46-116); Anion Gap 7.8 mmol/L (3-11); BUN 20 mg/dL (7-18); Bilirubin, Total 0.5 mg/dL (0.2-1.0); CO2 29.2 mmol/L (21.0-32.0); CREATININE 1.3 mg/dL (0.55-1.02); Calcium 9.1 mg/dL (8.5-10.1); Chloride 104 mmol/L (98-107); Estimated GFR 43.15 (mL/min/1.73m2); Glucose 111 mg/dL (74-106); Potassium 3.7 mmol/L (3.5-5.1); Sodium 141 mmol/L (136-145); Total Protein 7.7 g/dL (6.4-8.2)
[2022-11-11 11:39] LABS: Bilirubin Negative (Negative); Blood Moderate (Negative); Clarity Clear (Clear); Glucose Negative (Negative); Ketones Negative (Negative); Leukocyte Esterase Negative (Negative); Nitrite Negative (Negative); Specific Gravity 1.015 (1.005-1.025); Urobilinogen 0.2 mg/dL (Up to 0.2)
[2022-11-11 11:49] LABS: Bacteria Negative HPF (Negative); C & S Indicated? No; Casts Negative LPF (Negative); Crystals Negative HPF (Negative); Epithelial Cells Rare HPF (Negative); Mucus Negative (Negative); WBC Negative HPF (0-5)
[2022-11-11] MEDS: fentaNYL 100 MCG/2 ML VIAL 25 MCG IVP (12:40)
[2022-11-11 13:27] LABS: Troponin I < 50 ng/L (<or=60)
[2022-11-11 13:51] VITALS: BP 163/86; PULSE 64; TEMP 36.3; O2SAT 91
[2022-11-11 14:26] VITALS: BP 146/76; PULSE 69; O2SAT 96
--- NOTE | 2022-11-12 13:19 | NUR.NOTE ---
Accessed chart to determine orders for EKG and to determine whether or not one needs to be cancelled. Nursing Note:
== END 2022-11-11 16:41 | disposition home or self-care (01) ==
PROVIDERS: Emergency Provider Registered Nurse Emergency; PCP Nurse Practitioner Family
DX: N21.8 Other lower urinary tract calculus (principal); K44.9 Diaphragmatic hernia without obstruction or gangrene; R31.9 Hematuria, unspecified; R94.31 Abnormal electrocardiogram [ECG] [EKG]
CPT/HCPCS: 36415; 71250; 80053; 93005; 96374; 99284; 74176; 81003; 81015; 84484; 85025; 93010; J2405; J3010

== ENCOUNTER → 2022-11-12 15:21 | Outpatient (CLI) | payer MEDICARE, MEDICAID, SELFPAY ==
--- NOTE | 2022-11-12 13:19 | DI.RAD_ITS ---
Exam(s) XR LUMBAR SPINE COMPLETE EXAM: XR LUMBAR SPINE COMPLETE CLINICAL HISTORY: low back pain M54.50 LOW BACK PAIN. TECHNIQUE: 2D digital imaging was performed of the lumbar spine. Six images were obtained. AP, lat eral, right oblique, left oblique and L5-S1 spot views were obtained. COMPARISON: No exams were available for comparison FINDINGS: BONES: No fracture or destructive lesion. There endplate osteophytes seen at the L1-L2 level. No fac et hypertrophy identified. DISKS: There is disc space narrowing at T12-L1 and L1-L2. ALIGNMENT: There is mild left convex curvature of the lumbar spine. No spondylolysis or spondylolist hesis. SOFT TISSUE: Atherosclerosis is present. IMPRESSION: Mild degenerative changes in the lumbar spine. DATA REPOSITORY: RADIATION DOSE DELIVERED:
== END ==
PROVIDERS: PCP Nurse Practitioner Family; Visit Provider Nurse Practitioner Family
DX: M51.35 Other intervertebral disc degeneration, thoracolumbar region (principal)
CPT/HCPCS: 72110

== ENCOUNTER → 2022-11-14 14:33 | Outpatient (BNVA) | payer MEDICARE, MEDICAID, SELFPAY | PROVIDERS: PCP Nurse Practitioner Family; Referring Provider Nurse Practitioner Family; Visit Provider Urology | DX: N28.1 Cyst of kidney, acquired (principal); R31.9 Hematuria, unspecified | CPT/HCPCS: 99215 ==

== ENCOUNTER 2022-12-05 08:36 | Emergency (ER) | payer MEDICARE, MEDICAID, SELFPAY ==
--- NOTE | 2022-12-05 08:45 | DI.RAD_ITS ---
Exam(s) XR TIB/FIB LT XR FOOT LT COMPLETE XR ANKLE LT COMPLETE EXAM: XR FOOT LT COMPLETE and XR ankle LT complete and XR tib/fib LT CLINICAL HISTORY: fall lateral pain - base of 5th. TECHNIQUE: 2D digital imaging was performed of the left ankle, tib/fib and foot. Eight images were obtained. AP, oblique and lateral views were obtained. COMPARISON: CR LEFT ANKLE COMPLETE from 03/18/2014 FINDINGS: BONES: There is an acute nondisplaced fracture through the distal metaphysis of the proximal phalanx of the 5th toe. There is a 2 mm curvilinear density lateral to the talus which may represent a small avulsed fracture fragment. No bony destructive lesion is seen. There is an oblique lucency seen at the dorsal aspect of the navicular on the lateral view which may represent a small nondisplaced fract ure. JOINTS: No dislocation present. Degenerative changes are seen in the knee particularly the medial fem oral tibial joint. Findings include joint space narrowing and osteophytes. SOFT TISSUE: There is soft tissue swelling around the ankle and foot. IMPRESSION: 1. Nondisplaced fracture of the proximal phalanx of the 5th toe. 2. Curvilinear density lateral to the talus which may represent a small avulsed fracture. 3. Oblique lucency in the dorsal aspect of the navicular on the lateral view which may represent a sm all nondisplaced fracture. DATA REPOSITORY: RADIATION DOSE DELIVERED:
[2022-12-05 08:49] VITALS: BP 142/86; PULSE 85; RESP 20; TEMP 36.8; O2SAT 94
--- NOTE | 2022-12-05 09:17 | W.ED.GENAD ---
Discharge Plan Disposition Patient Disposition: Home Discharge Details Clinical Impression: Avulsion fracture of ankle, Nondisplaced fracture of fifth metatarsal bone, left foot, initial encounter for closed fracture Primary Care Provider: Teofilo Steele ED Provider: Murali Dumont Home Meds and New Rx's Prescriptions: No Action acetaminophen 500 mg tablet 1,000 mg PO BID PRN triamcinolone acetonide 0.5 % cream 1 applic topical BID Qty: 45 2RF Rx Instructions: Apply thin layer 2x per day lower legs doxepin 25 mg capsule 25 mg PO QHS Qty: 30 6RF famotidine 20 mg tablet 20 mg PO DAILY Qty: 90 3RF gabapentin 400 mg capsule 400 mg PO TID Qty: 270 3RF Rx Instructions: dose change baclofen 5 mg tablet 5 mg PO QID PRN (Reason: muscle spasm) Qty: 30 0RF estradiol 0.01 % (0.1 mg/gram) cream 0.25 g vaginal DAILY Qty: 42.5 0RF Rx Instructions: Massage a pea-sized amount around the skin around the vaginal opening, the labia and on all the irritated areas. losartan 100 mg tablet 100 mg PO DAILY Qty: 90 3RF levothyroxine 75 mcg tablet 75 mcg PO DAILY Qty: 90 4RF rosuvastatin 10 mg tablet See Rx Instructions .ROUTE .COMPLEX Qty: 90 3RF Dose Instruction: TAKE 1 TABLET(10 MG) BY MOUTH EVERY DAY Rx Instructions: TAKE 1 TABLET(10 MG) BY MOUTH EVERY DAY hydrochlorothiazide 25 mg tablet 25 mg PO DAILY Qty: 90 3RF Discharge Instructions Instructions: Ankle Sprain (ED), Foot Fracture in Adults (ED), Walking Boot (ED) Additional Instructions: You may continue to use [id number] acetaminophen as directed on packaging. You may also use the provided Voltaren gel applied to area of pain up to 4 times daily. You may perform a light weightbearing activities but please keep your walking boot on during any weightbearing. Also use the walker for stability to prevent reinjury or falling again. You will need to follow-up with the orthopedic clinic and call them next week for arrangement of follow-up appointment Referrals: [facility] [Provider Group] (Call the office Thursday afternoon for arrangement of your follow-up appointment) Medical Decision Making Patient presenting to the emergency department for left lower extremity injury. Patient reports simple rolling of her left ankle yesterday afternoon. Since then she has noted more swelling pain and discomfort and difficulty with weightbearing activities. Patient denies any loss of consciousness, syncope, chest pain or other complaints associated with fall. Patient has past medical history of hypertension, kidney cyst, anxiety disorder, paroxysmal A-fib, chronic kidney disease. Physical exam shows diffuse tenderness to palpation of the lateral aspect of the left fibula and lateral ankle with swelling and ecchymosis along with pain at the base of the fifth metatarsal. We will plan on performing radiological imaging for evaluation of sprain/soft tissue injury versus fracture. Review of radiological imaging and radiologist interpretation shows small avulsion fracture along with nondisplaced fifth metatarsal fracture. Given this patient was placed in a tall walking boot and use of walker with weightbearing as tolerated along with being placed on the Ortho follow-up list. After discussion of diagnosis and plan of care patient has no further needs, questions, or concerns and states clear understanding to return to the emergency department for any worsening symptoms. This documentation was generated using [employer] dictation system, please disregard any oddities of phrase or misspellings. Imaging Data Radiologic Study: Imaging: X-Ray Radiologist's impression: Exam(s) XR TIB/FIB LT XR FOOT LT COMPLETE XR ANKLE LT COMPLETE EXAM: XR FOOT LT COMPLETE and XR ankle LT complete and XR tib/fib LT CLINICAL HISTORY: fall lateral pain - base of 5th. TECHNIQUE: 2D digital imaging was performed of the left ankle, tib/fib and foot. Eight images were obtained. AP, oblique and lateral views were obtained. COMPARISON: CR LEFT ANKLE COMPLETE from 03/18/2014 FINDINGS: BONES: There is an acute nondisplaced fracture through the distal metaphysis of the proximal phalanx of the 5th toe. There is a 2 mm curvilinear density lateral to the talus which may represent a small avulsed fracture fragment. No bony destructive lesion is seen. There is an oblique lucency seen at the dorsal aspect of the navicular on the lateral view which may represent a small nondisplaced fracture. JOINTS: No dislocation present. Degenerative changes are seen in the knee particularly the medial femoral tibial joint. Findings include joint space narrowing and osteophytes. SOFT TISSUE: There is soft tissue swelling around the ankle and foot. IMPRESSION: 1. Nondisplaced fracture of the proximal phalanx of the 5th toe. 2. Curvilinear density lateral to the talus which may represent a small avulsed fracture. 3. Oblique lucency in the dorsal aspect of the navicular on the lateral view which may represent a small nondisplaced fracture. HPI General Mode of arrival: wheelchair. Date/Time Provider Initiated Documentation: 12/05/22 08:50. Limitations to Documentation: no limitations. Information obtained by: patient, family and RN notes reviewed. History of Present Illness 72 year old F presents to the emergency department with the chief complaint of Left ankle injury, described as moderate and severe, Quality is described as sharp, and is localized to the left and lower extremity. Patient reports no radiation. Patient started experiencing this day(s) (1) and it has been constant. Immobilization improves symptom(s), Movement worsens symptoms . Patient notes no other symptoms.. Patient did receive the following treatments prior to arrival, other (Acetaminophen prior to arrival) Related Data Home Medications Medication Instructions Recorded Confirmed acetaminophen 500 mg tablet 1,000 mg PO BID PRN 01/03/19 11/18/22 triamcinolone acetonide 0.5 % 1 applic topical BID dermatitis 01/08/22 11/18/22 topical cream #45 grams losartan 100 mg tablet 100 mg PO DAILY #90 tabs 01/10/22 11/18/22 levothyroxine 75 mcg tablet 75 mcg PO DAILY #90 tab-caps 02/24/22 11/18/22 rosuvastatin 10 mg tablet See Rx Instructions .Route 03/12/22 11/18/22 .COMPLEX #90 tabs hydrochlorothiazide 25 mg tablet 25 mg PO DAILY #90 tabs 03/14/22 11/18/22 estradiol 0.01% (0.1 mg/gram) 0.25 g vaginal DAILY #42.5 grams 10/20/22 11/18/22 vaginal cream doxepin 25 mg capsule 25 mg PO QHS #30 caps 11/12/22 11/18/22 famotidine 20 mg tablet 20 mg PO DAILY #90 tabs 11/12/22 11/18/22 gabapentin 400 mg capsule 400 mg PO TID #270 caps 11/12/22 11/18/22 baclofen 5 mg tablet 5 mg PO QID PRN muscle spasm #30 11/18/22 11/18/22 tabs Previous Rx's Medication Instructions Recorded triamcinolone acetonide 0.5 % 1 applic topical BID dermatitis 01/08/22 topical cream #45 grams losartan 100 mg tablet 100 mg PO DAILY #90 tabs 01/10/22 levothyroxine 75 mcg tablet 75 mcg PO DAILY #90 tab-caps 02/24/22 rosuvastatin 10 mg tablet See Rx Instructions .Route 03/12/22 .COMPLEX #90 tabs hydrochlorothiazide 25 mg tablet 25 mg PO DAILY #90 tabs 03/14/22 estradiol 0.01% (0.1 mg/gram) 0.25 g vaginal DAILY #42.5 grams 10/20/22 vaginal cream doxepin 25 mg capsule 25 mg PO QHS #30 caps 11/12/22 famotidine 20 mg tablet 20 mg PO DAILY #90 tabs 11/12/22 gabapentin 400 mg capsule 400 mg PO TID #270 caps 11/12/22 baclofen 5 mg tablet 5 mg PO QID PRN muscle spasm #30 11/18/22 tabs Allergies Allergy/AdvReac Type Severity Reaction Status Date / Time tramadol AdvReac Intermediate Nausea, Verified 11/18/22 10:21 dizziness lisinopril AdvReac Mild COUGH Verified 11/18/22 10:21 General Stated Complaint: Orthopedic MARIA: 4 Review of Systems Constitutional Constitutional: Denies frequent falls and Denies headache(s) ENT Ears, Nose, Mouth, and Throat: Denies headache(s) Cardiovascular Cardiovascular: Denies chest pain and Denies dyspnea Respiratory Respiratory: Denies dyspnea Gastrointestinal Gastrointestinal: Denies abdominal pain Musculoskeletal Musculoskeletal: Reports as per HPI, Reports arthralgias, Reports joint swelling and Reports limited range of motion Integumentary/Breasts Skin/Breast: Denies unusual bruising Neurologic Neurologic: Denies frequent falls, Denies headache(s) and Denies memory loss Psychiatric Psychiatric: Denies memory loss PFSH All Active Problems (Updated 12/05/22 @ 10:29 by Murali Dumont NP) Essential hypertension (Chronic) Hyperlipidemia (Chronic) Hypothyroidism (Chronic) Vaginal atrophy (Chronic 11/09/17) Rx with vaginal Estrogen cream. Expense of vaginal estrogen cream was an issue Chronic vulvitis (Chronic) Long-standing approximately 3 years duration 09/2017 briefly used vaginal Premarin and triamcinolone topical steroid with improvement. 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 Dermatitis (Acute) Chronic heartburn (Chronic) Advance directive declined by patient (Acute) Acute CHF (Acute) Atrial fibrillation with rapid ventricular response (Acute) Paroxysmal atrial fibrillation (Acute) Chronic anticoagulation (Acute) Neck pain on right side (Acute) Weakness (Acute) Left shoulder pain (Acute) Left hip pain (Acute) Renal cyst (Acute) Hernia, hiatal (Chronic) Hematuria (Acute) Low back pain (Acute) CKD (chronic kidney disease) (Chronic) Avulsion fracture of ankle (Acute) Nondisplaced fracture of fifth metatarsal bone, left foot, initial encounter for closed fracture (Acute) Medical History Acute vulvitis 02/20/2019. Developed into lesions. PCR: HSV2. Patient advised to notify the office in the event of another flare Postherpetic neuralgia Surgical History S/P appendectomy S/P left oophorectomy For ovarian cyst S/P tonsillectomy and adenoidectomy S/P tubal ligation (~1978) Status post left shoulder hemiarthroplasty (03/30/17) Hemiarthroplasty left shoulder using humeral CAP prosthesis Family History Mother , at 87 Essential hypertension Heart disease Stroke Atrial fibrillation Father , at 78 Essential hypertension Heart disease Asthma Type 2 diabetes mellitus Chronic kidney disease Myocardial infarction Hyperlipidemia Brother No problems noted. Brother , at 54 Alcohol abuse Type 2 diabetes mellitus Hepatitis C Liver disease Sister Schizophrenia Hypothyroidism Son Schizophrenia Son Bipolar disorder Alcohol abuse Substance abuse Maternal Grandfather No problems noted. Maternal Grandmother Heart disease Paternal Grandfather No problems noted. Paternal Grandmother No problems noted. Social History Smoking/Tobacco Use Status: Never Second Hand Exposure: Yes Smoking risk assessment performed?: Yes Alcohol Intake: never Drug use: Never Substance use type: does not use Caregiver/Support person: No Household members: significant other and children Housing: condominium Communication Needs: None Do you need help understanding health information?: Never Pets and animals: Yes Pets and animals: cat(s) Sexually active: No Do you think of yourself as: straight/heterosexual Current gender identity: male and decline to answer What is your relationship status?: How often do you talk on the phone with friends or family?: once per week How often do you get together with friends or relatives?: once per week How often do you attend rastafarian or protestant services?: decline to answer Do you belong to any clubs or organized social groups?: no Panel score (0-1 are the most socially isolated patients): 0 What type of physical activity do you participate in: walking Duration: < 15 minutes/day Frequency: 1-2 times per week Gill/Druze: Rastafari Special gill needs: No Seatbelt use: always Helmet use: No 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 Do you feel safe at home: Yes Do you feel safe in your relationship?: Yes Female Reproductive History Menstrual Menopause type: natural Date of menopause: 03/23/95 History History 2 Para 2 Hx # Term Pregnancies Multiple births Hx # Pregnancies Ectopic pregnancies AB induced Hx Number of Living Children 2 AB spontaneous Exam Const General: cooperative, no acute distress and not ill appearing Orientation: alert, awake and oriented x3 HENMT Mouth: moist mucous membranes Resp Effort & Inspection: normal respiratory effort, able to speak in complete sentences and no respiratory distress Cardio Rate: regular rate Rhythm: regular rhythm Pulses: normal peripheral pulses Skin General skin exam: no rashes or lesions noted Neuro General: patient alert, patient awake, patient oriented x3, moves all extremities and no focal motor deficits Sensory Exam: no sensory deficits noted Extrem General: normal exam except as noted Left lower extremity: lower leg Details: tenderness Location: of the midshaft fibula and of the distal fibula; no erythema and no ecchymosis, ankle Details: tenderness Location: of the lateral malleolus, swelling Details: laterally and abnormal ROM Details: pain with active ROM and pain with passive ROM and foot Details: tenderness Location: of the base of the 5th metatarsal, ecchymosis (Lateral ankle), vascular exam Details: dorsalis pedis pulse present, posterior tibial pulse present and normal capillary refill and motor-sensory exam Details: two point discrimination normal and light-touch normal; no crepitus Course Vital Signs Vital signs: Vital Signs Temperature 36.8 C 12/05/22 08:49 Pulse 85 12/05/22 08:49 Respiratory Rate 20 12/05/22 08:49 Blood Pressure 142/86 H 12/05/22 08:49 Pulse Oximetry 94 12/05/22 08:49 Temperature 36.8 C 12/05/22 08:49 Temperature Source Temporal Artery Scan 12/05/22 08:49 Pulse 85 12/05/22 08:49 Respiratory Rate 20 12/05/22 08:49 Respiratory Effort Normal, Non-Labored 12/05/22 08:52 Blood Pressure 142/86 H 12/05/22 08:49 Blood Pressure Position Sitting 12/05/22 08:49 Pulse Oximetry 94 12/05/22 08:49 Oxygen Delivery Method Room Air 12/05/22 08:49 Oxygen Flow Rate 0 12/05/22 08:49
[2022-12-05] MEDS: Diclofenac 1% Gel 100 GM TUBE TP (10:29)
== END 2022-12-05 10:42 | disposition home or self-care (01) ==
PROVIDERS: Emergency Provider Nurse Practitioner Family; PCP Nurse Practitioner Family
DX: S92.355A Nondisplaced fracture of fifth metatarsal bone, left foot, initial encounter for closed fracture (principal); S82.892A Other fracture of left lower leg, initial encounter for closed fracture; X58.XXXA Exposure to other specified factors, initial encounter
CPT/HCPCS: 29515; 99284; 73590; 73610; 73630

== ENCOUNTER → 2023-01-05 13:23 | Outpatient (BNVA) | payer MEDICARE, MEDICAID, SELFPAY | PROVIDERS: PCP Nurse Practitioner Family; Referring Provider Nurse Practitioner Family | DX: S92.515A Nondisplaced fracture of proximal phalanx of left lesser toe(s), initial encounter for closed fracture (principal); S93.402A Sprain of unspecified ligament of left ankle, initial encounter; W19.XXXA Unspecified fall, initial encounter | CPT/HCPCS: 99213 ==

== ENCOUNTER → 2023-01-20 12:41 | Outpatient (BNVA) | payer MEDICARE, MEDICAID, SELFPAY | PROVIDERS: PCP Nurse Practitioner Family; Referring Provider Nurse Practitioner Family; Visit Provider Urology | DX: R31.29 Other microscopic hematuria (principal) | CPT/HCPCS: 52000 ==

== ENCOUNTER 2023-03-22 12:56 | Emergency (ER) | payer MEDICARE, MEDICAID, SELFPAY ==
[2023-03-22 13:37] VITALS: BP 108/54; PULSE 93; RESP 16; TEMP 37.4; O2SAT 96
[2023-03-22 15:13] VITALS: PULSE 87; RESP 16; TEMP 36.8; O2SAT 94
--- NOTE | 2023-03-22 15:30 | DI.RAD_ITS ---
Exam(s) XR CHEST 2V PA LATERAL EXAM: XR CHEST 2V PA LATERAL CLINICAL HISTORY: cough TECHNIQUE: 2D digital imaging was performed. COMPARISON: CR,XR XR PORTABLE CHEST AP from 02/04/[address] CHEST/ABD/PEL WO from 11/11/2022 FINDINGS: HEART: Normal size. Aorta: Not dilated. PULMONARY VASCULATURE: Normal. LUNGS: Clear. PLEURAL SPACE: No pleural effusion or pneumothorax. BONE:Unremarkable left shoulder prosthesis. Soft tissues: Small hiatal hernia. IMPRESSION: No acute abnormality. DATA REPOSITORY: RADIATION DOSE DELIVERED:
--- NOTE | 2023-03-22 15:36 | ED.GENADUL_ITS ---
HPI General Stated Complaint: Sorethroat MARIA: 4 Date/Time Provider Initiated Documentation: 03/22/23 15:35. HPI Narrative: 72 year-old female presents to ED today by POV/ambulating with a chief complaint of sore throat, R ear pain, cough with onset 4 days ago. Quality described as generalized sore throat, mild cough, congestion, no radiation to high fever, shortness of breath, abdominal pain, nausea/vomiting. Severity is described as mild to moderate/10. Palliating factors include nothing specific attempted. Provoking factors include nothing specific. Events leading up to the incident/Associated Symptoms: Patient is vaccinated for Covid-19. Patient is anticoagulated. Related Data Home Medications Medication Instructions Recorded Confirmed acetaminophen 500 mg tablet 1,000 mg PO BID PRN 01/03/19 03/22/23 triamcinolone acetonide 0.5 % 1 applic topical BID dermatitis 01/08/22 03/22/23 topical cream #45 grams levothyroxine 75 mcg tablet 75 mcg PO DAILY #90 tab-caps 02/24/22 03/22/23 rosuvastatin 10 mg tablet See Rx Instructions .Route 03/12/22 03/22/23 .COMPLEX #90 tabs hydrochlorothiazide 25 mg tablet 25 mg PO DAILY #90 tabs 03/14/22 03/22/23 estradiol 0.01% (0.1 mg/gram) 0.25 g vaginal DAILY #42.5 grams 10/20/22 03/22/23 vaginal cream doxepin 25 mg capsule 25 mg PO QHS #30 caps 11/12/22 03/22/23 famotidine 20 mg tablet 20 mg PO DAILY #90 tabs 11/12/22 03/22/23 gabapentin 400 mg capsule 400 mg PO TID #270 caps 11/12/22 03/22/23 baclofen 5 mg tablet 5 mg PO QID PRN muscle spasm #30 11/18/22 03/22/23 tabs losartan 100 mg tablet 100 mg PO DAILY #90 tabs 02/03/23 03/22/23 Previous Rx's Medication Instructions Recorded triamcinolone acetonide 0.5 % 1 applic topical BID dermatitis 01/08/22 topical cream #45 grams levothyroxine 75 mcg tablet 75 mcg PO DAILY #90 tab-caps 02/24/22 rosuvastatin 10 mg tablet See Rx Instructions .Route 03/12/22 .COMPLEX #90 tabs hydrochlorothiazide 25 mg tablet 25 mg PO DAILY #90 tabs 03/14/22 estradiol 0.01% (0.1 mg/gram) 0.25 g vaginal DAILY #42.5 grams 10/20/22 vaginal cream doxepin 25 mg capsule 25 mg PO QHS #30 caps 11/12/22 famotidine 20 mg tablet 20 mg PO DAILY #90 tabs 11/12/22 gabapentin 400 mg capsule 400 mg PO TID #270 caps 11/12/22 baclofen 5 mg tablet 5 mg PO QID PRN muscle spasm #30 11/18/22 tabs losartan 100 mg tablet 100 mg PO DAILY #90 tabs 02/03/23 Allergies Allergy/AdvReac Type Severity Reaction Status Date / Time tramadol AdvReac Intermediate Nausea, Verified 03/22/23 13:38 dizziness lisinopril AdvReac Mild COUGH Verified 03/22/23 13:38 Review of Systems All systems reviewed & are unremarkable except as noted in HPI and below PFSH All Active Problems (Updated 03/22/23 @ 17:01 by DIMITRY Espitia) COVID-19 (Acute) Microscopic hematuria (Acute) Left ankle sprain (Acute) Nondisplaced fracture of proximal phalanx of left lesser toe(s), initial encounter for closed fracture (Acute) CKD (chronic kidney disease) (Chronic) Low back pain (Acute) Left hip pain (Acute) Left shoulder pain (Acute) Weakness (Acute) Neck pain on right side (Acute) Chronic anticoagulation (Acute) Paroxysmal atrial fibrillation (Acute) Atrial fibrillation with rapid ventricular response (Acute) Acute CHF (Acute) Advance directive declined by patient (Acute) Chronic heartburn (Chronic) Dermatitis (Acute) 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 Shingles (herpes zoster) polyneuropathy (Chronic) improved with gabapentin Prediabetes (Chronic) Generalized anxiety disorder (Chronic) Chronic vulvitis (Chronic) Long-standing approximately 3 years duration 09/2017 briefly used vaginal Premarin and triamcinolone topical steroid with improvement. Vaginal atrophy (Chronic 11/09/17) Rx with vaginal Estrogen cream. Expense of vaginal estrogen cream was an issue Hypothyroidism (Chronic) Hyperlipidemia (Chronic) Essential hypertension (Chronic) Medical History Acute vulvitis 02/20/2019. Developed into lesions. PCR: HSV2. Patient advised to notify the office in the event of another flare Postherpetic neuralgia Surgical History S/P appendectomy S/P tonsillectomy and adenoidectomy Status post left shoulder hemiarthroplasty (03/30/17) Hemiarthroplasty left shoulder using humeral CAP prosthesis S/P left oophorectomy For ovarian cyst S/P tubal ligation (~1978) Family History Mother , at 87 Essential hypertension Heart disease Stroke Atrial fibrillation Father , at 78 Essential hypertension Heart disease Asthma Type 2 diabetes mellitus Chronic kidney disease Myocardial infarction Hyperlipidemia Brother No problems noted. Brother , at 54 Alcohol abuse Type 2 diabetes mellitus Hepatitis C Liver disease Sister Schizophrenia Hypothyroidism Son Schizophrenia Son Bipolar disorder Alcohol abuse Substance abuse Maternal Grandfather No problems noted. Maternal Grandmother Heart disease Paternal Grandfather No problems noted. Paternal Grandmother No problems noted. Social History Smoking/Tobacco Use Status: Never Second Hand Exposure: Yes Smoking risk assessment performed?: Yes Alcohol Intake: never Drug use: Never Substance use type: does not use Caregiver/Support person: No Household members: significant other and children Housing: condominium Communication Needs: None Do you need help understanding health information?: Never Pets and animals: Yes Pets and animals: cat(s) Sexually active: No Do you think of yourself as: straight/heterosexual Current gender identity: male and decline to answer What is your relationship status?: How often do you talk on the phone with friends or family?: once per week How often do you get together with friends or relatives?: once per week How often do you attend anabaptist or advent services?: decline to answer Do you belong to any clubs or organized social groups?: no Panel score (0-1 are the most socially isolated patients): 0 What type of physical activity do you participate in: walking Duration: < 15 minutes/day Frequency: 1-2 times per week Gill/Holiness: Yazidism Special gill needs: No Seatbelt use: always Helmet use: No Drive intox or ride w/intox driver salesman: No Do you feel safe at home: Yes Do you feel safe in your relationship?: Yes Female Reproductive History Menstrual Menopause type: natural Date of menopause: 03/23/95 History History 2 Para 2 Hx # Term Pregnancies Multiple births Hx # Pregnancies Ectopic pregnancies AB induced Hx Number of Living Children 2 AB spontaneous Exam Narrative Exam Narrative: GENERAL APPEARANCE: Well-nourished, non-toxic, awake and alert, atraumatic, no acute distress. SKIN: Warm, pink, dry, intact, without rashes/lesions/ulcerations. HEAD: Normocephalic, atraumatic, normal hair distribution for gender/age. EYES: Pupils PERRLA, EOMs intact without nystagmus, normal conjunctiva, no exudates on lids/lashes. ENT: Nares patent, no circumoral cyanosis, no facial swelling, TMs clear bilaterally, uvula midline, no tonsillar swelling/exudate, mild erythema to posterior oropharynx NECK: Supple, trachea midline, painless cervical ROM. LUNGS/CHEST: Lungs CTA bilaterally- no rhonchi/rales/wheezes diffusely, non- labored respirations, normal A/P diameter, symmetrical expansion, no chest wall deformity HEART (CV/PV): Regular rate and rhythm without murmur, no peripheral edema, no JVD. ABDOMEN: Soft, non-distended, no guarding. MSK: Normal ROM, no swelling/deformity to bilateral UEs or LEs, moving all extremities without weakness, no cyanosis, spine midline without tenderness, normal curvature. NEURO: Mental Status AAOx4 - alert to person, place, time, events No facial droop, no forehead involvement. Motor: No focal weakness - strength 5/5 in bilateral UEs and LEs, proximal and distal, symmetric. Sensory: sensation intact to light touch globally. Gait normal: patient ambulated without ataxia into ED room. PSYCH: euthymic, cooperative, pleasant, appropriate speech Course Vital Signs Vital signs: Vital Signs Temperature 37.4 C 03/22/23 13:37 Pulse 93 H 03/22/23 13:37 Respiratory Rate 16 03/22/23 13:37 Blood Pressure 108/54 L 03/22/23 13:37 Pulse Oximetry 96 03/22/23 13:37 Temperature 36.8 C 03/22/23 15:13 Temperature Source Oral 03/22/23 15:13 Pulse 87 03/22/23 15:13 Respiratory Rate 16 03/22/23 15:13 Respiratory Effort Normal 03/22/23 15:13 Blood Pressure 108/54 L 03/22/23 13:37 Pulse Oximetry 94 03/22/23 15:13 Oxygen Delivery Method Room Air 03/22/23 15:13 Pain Level 7 03/22/23 15:13 Comment Right ear and throat 03/22/23 15:13 Lab/Test Results Lab/Test Results: 03/22/23 13:45 Tonsil - Not Specified Group A Streptococcus Culture - Pending POC Strep Test-TIFFANY(Rapid) Start: 03/22/23 13:39 Freq: .Rapid Strep Test Status: Active Protocol: Document 03/22/23 13:52 AK (Rec: 03/22/23 13:52 [id number]) Strep test-TIFFANY(Rapid)-POC POC-Strep test-TIFFANY (Rapid) Negative POC-Strep test-TIFFANY (Rapid) Negative Medical Decision Making This dictation utilizes [id number] dictation software and may contain unedited grammatical errors. 72 y/o F presents to ED today with a chief complaint of sore throat, R ear pain, mild cough. Patient has generalized viral syndrome, denies shortness of breath, chest pain, vertigo, syncope, hemoptysis, nausea/vomiting. Patients' medical history: CKD, chronic anticoagulation, A-fib with RVR, CHF, prediabetes, hypertension. Family and social history: Noncontributory. Pertinent exam findings / vital signs include lungs CTA without respiratory distress, no tachycardia, benign abdomen, neuro intact. Differential / pathologies of concern include viral syndrome, AOM, strep pharyngitis unlikely. Diagnostic studies of: -COVID flu RSV [id number]. Interventions of: -Recommend OTC symptomatic treatments for COVID at home, patient declined need for inhaler, is vaccinated, outside window for Paxlovid likely. ED Course/Assessment/Plan: Patient presents with general viral syndrome and is positive for COVID she is on day 4-5 of illness, it is chronically anticoagulated do not suspect that she has high risk for deterioration to severe COVID and there is no sign of respiratory distress at this time. I counseled her to take regular doses of [id number] cold medicines as needed and as tolerated. Findings not consistent with hypoxic respiratory failure, inability to tolerate p.o. intake, sepsis-nontoxic vitals. Disposition of Covid-19. Patient verbalized understanding of the plan and return to ED criteria and engaged in shared decision making. Medical Records Medical records reviewed: Yes I reviewed the patient's medical records. Lab Data Lab results reviewed: Yes I reviewed the patient's lab results. Labs: 03/22/23 13:45 Tonsil - Not Specified Group A Streptococcus Culture - Final Laboratory Tests Range/Units 03/22/23 15:56 COVID-19 Source Nasopharynx SARS-CoV-2 (PCR) (Negative) Positive A Influenza Type A (PCR) (Negative) Negative Influenza Type B (PCR) (Negative) Negative RSV (PCR) (Negative) Negative Discharge Plan Disposition Patient Disposition: Home Condition: Stable Discharge Details Clinical Impression: COVID-19 Primary Care Provider: Teofilo Steele ED Provider: Tony Gray Home Meds and New Rx's Prescriptions: Continued acetaminophen 500 mg tablet 1,000 mg PO BID PRN triamcinolone acetonide 0.5 % cream 1 applic topical BID Qty: 45 2RF Rx Instructions: Apply thin layer 2x per day lower legs doxepin 25 mg capsule 25 mg PO QHS Qty: 30 6RF famotidine 20 mg tablet 20 mg PO DAILY Qty: 90 3RF gabapentin 400 mg capsule 400 mg PO TID Qty: 270 3RF Rx Instructions: dose change baclofen 5 mg tablet 5 mg PO QID PRN (Reason: muscle spasm) Qty: 30 0RF estradiol 0.01 % (0.1 mg/gram) cream 0.25 g vaginal DAILY Qty: 42.5 0RF Rx Instructions: Massage a pea-sized amount around the skin around the vaginal opening, the labia and on all the irritated areas. levothyroxine 75 mcg tablet 75 mcg PO DAILY Qty: 90 4RF rosuvastatin 10 mg tablet See Rx Instructions .ROUTE .COMPLEX Qty: 90 3RF Dose Instruction: TAKE 1 TABLET(10 MG) BY MOUTH EVERY DAY Rx Instructions: TAKE 1 TABLET(10 MG) BY MOUTH EVERY DAY hydrochlorothiazide 25 mg tablet 25 mg PO DAILY Qty: 90 3RF losartan 100 mg tablet 100 mg PO DAILY Qty: 90 3RF Discharge Instructions Instructions: COVID-19 (Coronavirus Disease 2019) (ED) Additional Instructions: You were seen in the emergency department for your respiratory infection. Your COVID swab is positive. This fits with your presentation, I do not believe that this is related to any other infection. Please take Tylenol and ibuprofen as well as any Mucinex you may need. Please return to the ED for any increasing shortness of breath, profound lethargy with inability to tolerate p.o. intake. Referrals: Teofilo Steele NP [Primary Care Provider] - Discharge Data Discharge Date/Time-TO BE ENTERED AT DEPARTURE: 03/22/23 17:20
[2023-03-22 16:38] LABS: Influenza A PCR Negative (Negative); Influenza B PCR Negative (Negative); RSV PCR Negative (Negative)
[2023-03-22 16:46] LABS: COVID-19 PCR Positive (Negative); Source Nasopharynx
--- NOTE | 2023-03-22 16:52 | DI.VRAD_ITS ---
PROCEDURE INFORMATION: Exam: XR Chest Exam date and time: 03/22/2023 4:13 PM Age: 72 years old Clinical indication: Other: Cough TECHNIQUE: Imaging protocol: Radiologic exam of the chest. Views: 2 views. COMPARISON: CT CHEST/ABD/PEL WO 11/11/2022 11:42 AM FINDINGS: Lungs: Lungs are adequately inflated and symmetric. No focal consolidation or evidence of pulmonary edema. Pleural spaces: No pleural effusion. No pneumothorax. Heart/Mediastinum: Cardiomediastinal contours are not enlarged. Hiatal hernia shadow is noted with small air-fluid level. Bones/joints: Status post left shoulder arthroplasty. No acute osseous finding. Mild multilevel thoracic spondylosis with mildly increased thoracic kyphosis. IMPRESSION: No acute findings. Dictated and Authenticated by: Jeb Espinoza MD. Ordering:AARON Jimenez MD
[2023-03-22 17:16] VITALS: BP 101/57; PULSE 87; RESP 16; TEMP 37; O2SAT 96
== END 2023-03-22 17:20 | disposition home or self-care (01) ==
PROVIDERS: Emergency Provider Physician Assistant; PCP Nurse Practitioner Family
DX: U07.1 COVID-19 (principal)
CPT/HCPCS: 87637; 87880; 99283; 71046; 87081

== ENCOUNTER 2023-10-01 15:16 | Emergency (ER) | payer MEDICARE, MEDICAID, SELFPAY ==
[2023-10-01] VITALS (45 sets, daily range): BP systolic 103–178; BP diastolic 34–75; PULSE 61–101; RESP 13–23; TEMP 36.5; O2SAT 93–99
--- NOTE | 2023-10-01 15:15 | RT.EKG_ITS ---
APPROVED REPORT Exam: Resting ECG Reason for Exam: chest discomfort Patient Location: E HR:81 bpm ECG Measurements Heart Rate 81 AXIS MD 232 P 26 QRSd 81 QRS 17 QT 429 T -34 QTc 499 Conclusion Sinus rhythm...normal P axis, V-rate 60- 99 Prolonged MD interval...MD >220, V-rate 50- 90 Low voltage, precordial leads...precordial leads <1.0mV Borderline T abnormalities, diffuse leads...T flat/neg Physician: no stemi
--- NOTE | 2023-10-01 15:30 | DI.CT_ITS ---
Exam(s) CT HEAD WO EXAM: CT HEAD WO CLINICAL HISTORY: Dizziness, near syncope. TECHNIQUE: Imaging Protocol: Axial computed tomography images with coronal and sagittal reformatted images were created and reviewed COMPARISON: CT CT HEAD WO from 02/03/2022 FINDINGS: Ventricles and Extra axial spaces: Normal in size and morphology for the patient's age. Hemorrhage: None. Cerebral parenchyma: No mass effect is identified. Subtle areas of decreased attenuation are seen in the white matter most consistent with chronic microvascular ischemic disease. Midline shift: None. Brainstem/Cerebellum: Normal. Calvarium: Normal. Visualized Paranasal sinuses/Mastoids: There is mucosal thickening in the visualized paranasal sinuse s. No air-fluid levels are seen. The mastoid air cells are clear. Soft Tissues: Unremarkable. IMPRESSION: No acute intracranial process. RADIATION DOSE DELIVERED: 635.38mGy.cm Total DLP DATA REPOSITORY: All CT scans at this facility are submitted to the National Radiology Data Registry (NRDR) Dose Index Registry (DIR) with the [employer] ([employer]). RADIATION OPTIMIZATION: All CT scans at this facility use at least one of these dose optimization te chniques: automated exposure control; mA and/or kV adjustment per patient size (includes targeted exa ms where dose is matched to clinical indication); or iterative reconstruction.
--- NOTE | 2023-10-01 15:30 | DI.RAD_ITS ---
Exam(s) XR CHEST 1V IN DI DEPT EXAM: XR CHEST 1V IN DI DEPT CLINICAL HISTORY: Chest pian dizziness, lightheadedness TECHNIQUE: 2D digital imaging was performed of the chest. One image was obtained. An AP view was ob tained. COMPARISON: CR,XR XR CHEST 2V PA LATERAL from 03/22/2023 FINDINGS: MEDIASTINUM: There is a hiatal hernia again seen. HEART: Normal. PULMONARY VASCULATURE: Normal. LUNGS: Clear. PLEURAL SPACE: No pleural effusion or pneumothorax. BONE:Within normal limits for the patient's age. There is a left shoulder prosthesis. OTHER FINDINGS:Normal. IMPRESSION: No acute pulmonary findings. DATA REPOSITORY: RADIATION DOSE DELIVERED:
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
[2023-10-01 15:35] LABS: Abs Immature Grans 0.05 10^3/uL (0.0-0.06); Absolute Basophil Count 0.05 10^3/uL (0.0-0.2); Absolute Eosinophil Count 0.27 10^3/uL (0.0-0.7); Absolute Lymphocyte Count 1.64 10^3/uL (1.2-3.4); Absolute Monocyte Count 0.59 10^3/uL (0.1-0.8); Basophils % 0.6 %; Eosinophils % 3.3 %; HCT 33.3 % (36.0-46.0); HGB 11.8 g/dL (11.2-15.7); Immature Grans % 0.6 %; MCH 31.1 pg (27.0-33.0); MCHC 35.4 % (32.0-36.0); MCV 88 fL (80-95); MPV 9.9 fL (8.0-11.0); Monocytes % 7.2 %; Neutrophils % 68.3 %; Platelet Count 266 10^3/uL (130-400); RDW 12.9 % (11.7-14.6); RDW-SD 40.7 fL
[2023-10-01] MEDS: Aspirin 81 MG CHEW 324 MG CH (15:40)
[2023-10-01 15:46] LABS: PTT Activated 23.8 sec (23.6-32.8); Prothrombin Time 10.4 sec (9.1-11.1)
[2023-10-01 15:48] LABS: Bilirubin Negative (Negative); Blood Trace-intact (Negative); Clarity Clear (Clear); Glucose Negative (Negative); Ketones Negative (Negative); Leukocyte Esterase Negative (Negative); Nitrite Negative (Negative); Urobilinogen 0.2 mg/dL (Up to 0.2)
[2023-10-01 15:57] LABS: ALT 22 U/L (14-59); AST 15 U/L (15-37); Albumin 3.9 g/dL (3.4-5.0); Alkaline Phosphatase 89 U/L (46-116); BUN 23 mg/dL (7-18); Bilirubin, Total 0.66 mg/dL (0.2-1.0); CREATININE 1.4 mg/dL (0.55-1.02); Calcium 9.3 mg/dL (8.5-10.1); Chloride 104 mmol/L (98-107); Estimated GFR 39.23 (mL/min/1.73m2); Glucose 150 mg/dL (74-106); Magnesium 1.6 mg/dL (1.8-2.4); Sodium 142 mmol/L (136-145); Total Protein 7.7 g/dL (6.4-8.2); Troponin I < 50 ng/L (< or =60)
[2023-10-01 15:58] LABS: Potassium 2.8 mmol/L (3.5-5.1)
[2023-10-01 15:58] LABS: Bacteria Negative HPF (Negative); C & S Indicated? No; Casts Negative LPF (Negative); Crystals Negative HPF (Negative); Epithelial Cells Few HPF (Negative); Mucus Negative (Negative); RBC 0-2 HPF (0-2); WBC 0-2 HPF (0-5)
[2023-10-01] MEDS: Potassium Chloride Liquid 20 MEQ PKT 40 MEQ PO (16:13)
[2023-10-01] MEDS: MAGNESIUM SULFATE 1 GM/100 ML BAG IVINF (16:20)
[2023-10-01] MEDS: Normal Saline 1,000 ML 100 ML IV (17:31)
[2023-10-01] MEDS: POTASSIUM CHLORIDE 10 MEQ/100 ML BAG 100 MEQ IVINF (17:32)
--- NOTE | 2023-10-01 18:15 | RT.EKG_ITS ---
APPROVED REPORT Exam: Resting ECG Reason for Exam: delta trop Patient Location: E HR:70 bpm ECG Measurements Heart Rate 70 AXIS RI 224 P 27 QRSd 82 QRS 18 QT 407 T 4 QTc 438 Conclusion Sinus rhythm...normal P axis, V-rate 60- 99 Prolonged RI interval...RI >220, V-rate 50- 90 Low voltage, precordial leads...precordial leads <1.0mV Physician: no stemi
[2023-10-01 19:17] LABS: Troponin I < 50 ng/L (< or =60)
--- NOTE | 2023-10-07 12:29 | NUR.NOTE ---
Accessed chart to reconcile [facility] EKG orders with [facility] EKG's in system. Duplicate order cancelled. Nursing Note:
== END 2023-10-01 19:37 | disposition home or self-care (01) ==
PROVIDERS: Emergency Provider Registered Nurse Emergency; PCP Nurse Practitioner Family
DX: R42 Dizziness and giddiness (principal); R07.9 Chest pain, unspecified; E87.6 Hypokalemia; E83.42 Hypomagnesemia; Z86.79 Personal history of other diseases of the circulatory system; E03.9 Hypothyroidism, unspecified
CPT/HCPCS: 36415; 80053; 93005; 96361; 96365; 99284; 70450; 71045; 81003; 81015; 83735; 84443; 84484; 85025; 85610; 85730; 93010; 99283; J3475; J3480

== ENCOUNTER 2023-10-08 02:33 | Outpatient (CLI) | payer MEDICARE, MEDICAID, SELFPAY ==
[2023-10-08 12:21] LABS: Anion Gap 7.2 mmol/L (3-11); BUN 18 mg/dL (7-18); CO2 31.8 mmol/L (21.0-32.0); CREATININE 1.3 mg/dL (0.55-1.02); Calcium 9.2 mg/dL (8.5-10.1); Chloride 103 mmol/L (98-107); Estimated GFR 42.88 (mL/min/1.73m2); Glucose 96 mg/dL (74-106); Potassium 3.4 mmol/L (3.5-5.1); Sodium 142 mmol/L (136-145)
== END 2023-10-08 02:34 | disposition home or self-care (01) ==
PROVIDERS: PCP Nurse Practitioner Family; Visit Provider Nurse Practitioner Family
DX: E87.6 Hypokalemia (principal); E83.42 Hypomagnesemia
CPT/HCPCS: 36415; 80048; 83735

== ENCOUNTER 2023-11-10 12:20 | Emergency (ER) | payer MEDICARE, MEDICAID, SELFPAY ==
[2023-11-10 12:30] VITALS: BP 114/72; PULSE 80; RESP 16; TEMP 36.9; O2SAT 96
[2023-11-10] MEDS: Ketorolac 10 MG TAB PO (13:58)
[2023-11-10] MEDS: Lidocaine 5% Patch 1 PATCH TP (13:58)
[2023-11-10] MEDS: Cyclobenzaprine 10 MG TAB PO (13:58)
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
== END 2023-11-10 15:05 | disposition home or self-care (01) ==
PROVIDERS: Emergency Provider Emergency Medicine; PCP Nurse Practitioner Family
DX: M54.50 Low back pain, unspecified (principal)
CPT/HCPCS: 99283

== ENCOUNTER 2023-12-02 07:50 | Emergency (ER) | payer MEDICARE, MEDICAID, SELFPAY ==
[2023-12-02 07:54] VITALS: BP 128/80; PULSE 89; RESP 18; TEMP 36.5; O2SAT 97
--- NOTE | 2023-12-02 08:00 | DI.RAD_ITS ---
Exam(s) XR TOE RT GREAT EXAM: XR TOE RT GREAT CLINICAL HISTORY: pain s/p hitting steel toe. TECHNIQUE: 2D digital imaging was performed. COMPARISON: CR XR FOOT LT COMPLETE from 12/05/2022 FINDINGS: BONES: No acute fracture is present. No bony destructive lesion is seen. JOINTS: No dislocation present. SOFT TISSUE: A small amount of soft tissue air seen near the nail bed. IMPRESSION: No evidence of fracture. DATA REPOSITORY: RADIATION DOSE DELIVERED:
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
[2023-12-02] MEDS: Ibuprofen 400 MG TAB PO (08:20)
[2023-12-02] MEDS: Bacitracin 30 GM TUBE TP (09:31)
== END 2023-12-02 09:28 | disposition home or self-care (01) ==
PROVIDERS: Emergency Provider Emergency Medicine; PCP Nurse Practitioner Family
DX: S90.111A Contusion of right great toe without damage to nail, initial encounter (principal); W22.8XXA Striking against or struck by other objects, initial encounter; Z59.02 Unsheltered homelessness
CPT/HCPCS: 99283; 73660

== ENCOUNTER 2024-01-09 09:35 | Emergency (ER) | payer MEDICARE, MEDICAID, SELFPAY ==
[2024-01-09 09:41] VITALS: BP 144/90; PULSE 77; RESP 15; TEMP 36.7; O2SAT 97
[2024-01-09 10:42] LABS: Bilirubin Negative (Negative); Blood Trace-intact (Negative); Clarity Clear (Clear); Glucose Negative (Negative); Ketones Negative (Negative); Leukocyte Esterase Small (Negative); Nitrite Negative (Negative); Urobilinogen 0.2 mg/dL (Up to 0.2)
[2024-01-09 10:56] LABS: Bacteria Rare HPF (Negative); C & S Indicated? Yes; Casts 0-2 Hyaline LPF (Negative); Crystals Negative HPF (Negative); Epithelial Cells Few HPF (Negative); Mucus Negative (Negative); RBC 0-2 HPF (0-2)
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
[2024-01-09 11:30] VITALS: BP 177/55; PULSE 69; RESP 16; O2SAT 99
== END 2024-01-09 11:32 | disposition home or self-care (01) ==
PROVIDERS: Emergency Provider Physician Assistant; PCP Nurse Practitioner Family
DX: B37.0 Candidal stomatitis (principal); N76.2 Acute vulvitis; I48.0 Paroxysmal atrial fibrillation; I10 Essential (primary) hypertension; E78.5 Hyperlipidemia, unspecified
CPT/HCPCS: 87880; 99283; 81003; 81015; 87081; 87086; 87480; 87510; 87660

== ENCOUNTER 2024-01-14 12:19 | Outpatient (REF) | payer MEDICARE, MEDICAID, SELFPAY ==
[2024-01-14 21:58] LABS: Hemoglobin A1C 4.5 % (<5.7)
[2024-01-14 22:04] LABS: Calculated LDL 81 mg/dL (<100); Cholesterol 160 mg/dL (<200); HDL Cholesterol 38 mg/dL (40-60); Triglyceride 207 mg/dL (<150)
[2024-01-14 22:26] LABS: FREE T4 0.88 ng/dL (0.76-1.46)
[2024-01-15 18:30] LABS: HIV-1/2 Ag & Ab Screen Negative (Negative)
[2024-01-15 18:44] LABS: Hepatitis C Ab w Rflx HCV PCR Negative (Negative)
== END 2024-01-14 12:20 | disposition home or self-care (01) ==
LOC: LBN 12:19
PROVIDERS: PCP Nurse Practitioner Family; Visit Provider Nurse Practitioner Family
DX: E03.9 Hypothyroidism, unspecified (principal); R73.03 Prediabetes; Z11.59 Encounter for screening for other viral diseases; E78.2 Mixed hyperlipidemia; Z11.4 Encounter for screening for human immunodeficiency virus [HIV]; L30.9 Dermatitis, unspecified
CPT/HCPCS: 80061; 86803; 87389; 83036; 84439; 84443

== ENCOUNTER 2024-01-19 08:51 | Emergency (ER) | payer MEDICARE, MEDICAID, SELFPAY ==
[2024-01-19 09:03] VITALS: BP 135/77; PULSE 69; RESP 15; TEMP 36.7; O2SAT 95
[2024-01-19 09:07] VITALS: BP 135/77; PULSE 69; RESP 15; TEMP 36.7; O2SAT 95
[2024-01-19] MEDS: Fluorescein STRIPS 100/BOX 1 MG OP (09:20)
[2024-01-19] MEDS: Tetracaine 0.5% 4 ML BTL OP (09:20)
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
[2024-01-19] MEDS: Refresh PLUS Eye Drops 0.4ml 1 EACH OU (09:55)
== END 2024-01-19 10:00 | disposition home or self-care (01) ==
PROVIDERS: Emergency Provider Emergency Medicine; PCP Nurse Practitioner Family
DX: H57.9 Unspecified disorder of eye and adnexa
CPT/HCPCS: 99283

== ENCOUNTER → 2024-03-22 13:08 | Outpatient (BNVA) | payer MEDICARE, MEDICAID, SELFPAY | PROVIDERS: PCP Nurse Practitioner Family; Referring Provider Nurse Practitioner Family; Visit Provider Urology | DX: R31.29 Other microscopic hematuria (principal) | CPT/HCPCS: 81003; 99213 ==

== ENCOUNTER 2024-04-15 15:46 | Outpatient (REF) | payer MEDICARE, MEDICAID, SELFPAY ==
[2024-04-15 16:43] LABS: TSH (W/Ref FT4) 13.26 uIU/mL (0.36-3.74)
[2024-04-15 17:03] LABS: FREE T4 0.84 ng/dL (0.76-1.46)
== END 2024-04-15 15:47 | disposition home or self-care (01) ==
LOC: LBN 15:46
PROVIDERS: PCP Nurse Practitioner Family; Visit Provider Nurse Practitioner Family
DX: E03.9 Hypothyroidism, unspecified (principal); Z01.30 Encounter for examination of blood pressure without abnormal findings
CPT/HCPCS: 84439; 84443

== ENCOUNTER 2024-06-01 10:06 | Emergency (ER) | payer MEDICARE, MEDICAID, SELFPAY ==
[2024-06-01 10:25] VITALS: BP 169/90; PULSE 70; RESP 15; TEMP 36.6; O2SAT 93
--- NOTE | 2024-06-01 10:45 | DI.CT_ITS ---
Exam(s) CT LUMBAR SPINE WO EXAM: CT LUMBAR SPINE WO CLINICAL HISTORY: Low back pain, worsened. TECHNIQUE: Imaging Protocol: Axial computed tomography images with coronal and sagittal reformatted images were created and reviewed COMPARISON: CT CT CHEST/ABD/PEL WO from 11/11/2022 FINDINGS: Bones: The last intervertebral disc space is designated the L5/S1 level for the numbering purpose of this examination. The vertebral body heights are well maintained. Alignment is satisfactory. No frac ture is seen. Small endplate osteophytes are seen throughout the lumbar spine. Disc heights are well maintained. T12-L1: No disc herniations are present. No central spinal canal or neural foraminal stenosis. L1-2: No disc herniations are present. No central spinal canal or neural foraminal stenosis. L2-3: No disc herniations are present. No central spinal canal or neural foraminal stenosis. L3-4: No disc herniations are present. No central spinal canal or neural foraminal stenosis. L4-5: No disc herniations are present. No central spinal canal or neural foraminal stenosis. L5-S1: No disc herniations are present. No central spinal canal or neural foraminal stenosis. There are degenerative changes of the facets bilaterally. Soft Tissues: The visualized SI joints and sacrum are will maintained. The paraspinal soft tissues a re unremarkable. There is diverticulosis seen in the colon. There again seen bilateral simple renal cysts. No follow-up is recommended. Atherosclerotic calcification of the abdominal aorta is noted. IMPRESSION: 1. No acute fracture or subluxation. 2. Mild degenerative changes seen in the lumbar spine. 3. No focal disc herniation or significant central spinal canal or neural foraminal stenosis is prese nt. RADIATION DOSE DELIVERED: 493.13mGy.cm Total DLP 493.13mGy.cm Total DLP DATA REPOSITORY: All CT scans at this facility are submitted to the National Radiology Data Registry (NRDR) Dose Index Registry (DIR) with the [employer] (ACR). RADIATION OPTIMIZATION: All CT scans at this facility use at least one of these dose optimization te chniques: automated exposure control; mA and/or kV adjustment per patient size (includes targeted exa ms where dose is matched to clinical indication); or iterative reconstruction.
[2024-06-01] MEDS: Ibuprofen 600 MG TAB PO (10:59)
[2024-06-01] MEDS: Lidocaine 5% Patch 1 PATCH TP (10:59)
[2024-06-01] MEDS: Acetaminophen 325 MG TAB 650 MG PO (11:00)
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
== END 2024-06-01 17:30 | disposition home or self-care (01) ==
PROVIDERS: Emergency Provider Emergency Medicine; PCP Nurse Practitioner Family
DX: M54.50 Low back pain, unspecified (principal); I48.0 Paroxysmal atrial fibrillation; I13.0 Hypertensive heart and chronic kidney disease with heart failure and stage 1 through stage 4 chronic kidney disease, or unspecified chronic kidney disease; N18.9 Chronic kidney disease, unspecified; I50.9 Heart failure, unspecified; E78.5 Hyperlipidemia, unspecified; E03.9 Hypothyroidism, unspecified
CPT/HCPCS: 99284; 72131

== ENCOUNTER 2024-06-24 12:48 | Outpatient (REF) | payer MEDICARE, MEDICAID, SELFPAY | END 2024-06-24 12:49 | disposition home or self-care (01) | LOC: LBN 12:48 | PROVIDERS: PCP Nurse Practitioner Family; Visit Provider Physician Assistant | DX: B37.31 Acute candidiasis of vulva and vagina (principal); B34.9 Viral infection, unspecified | CPT/HCPCS: 87480; 87510; 87660 ==

== ENCOUNTER 2024-07-13 08:43 | Outpatient (CLI) | payer MEDICARE, MEDICAID, SELFPAY ==
[2024-07-13 10:34] LABS: TSH (W/Ref FT4) 0.17 uIU/mL (0.36-3.74)
[2024-07-13 11:52] LABS: FREE T4 1.72 ng/dL (0.76-1.46)
== END 2024-07-13 08:44 | disposition home or self-care (01) ==
LOC: LBO 08:43
PROVIDERS: PCP Nurse Practitioner Family; Visit Provider Nurse Practitioner Family
DX: E03.9 Hypothyroidism, unspecified (principal)
CPT/HCPCS: 36415; 84439; 84443

== ENCOUNTER 2024-07-13 12:28 | Outpatient (REF) | payer MEDICARE, MEDICAID, SELFPAY ==
[2024-07-13 21:45] LABS: Bilirubin Negative (Negative); Blood Trace-intact (Negative); Clarity Clear (Clear); Glucose Negative (Negative); Ketones Negative (Negative); Leukocyte Esterase Negative (Negative); Nitrite Negative (Negative); Specific Gravity 1.015 (1.005-1.025); Urobilinogen 0.2 mg/dL (Up to 0.2)
== END 2024-07-13 12:29 | disposition home or self-care (01) ==
LOC: LBN 12:28
PROVIDERS: PCP Nurse Practitioner Family; Visit Provider Registered Nurse
DX: R30.0 Dysuria (principal); Z11.51 Encounter for screening for human papillomavirus (HPV); Z01.419 Encounter for gynecological examination (general) (routine) without abnormal findings
CPT/HCPCS: 88142; 81003; 87480; 87510; 87660

== ENCOUNTER 2024-08-08 19:37 | Emergency (ER) | payer MEDICARE, MEDICAID, SELFPAY ==
[2024-08-08 19:40] VITALS: BP 194/77; PULSE 67; RESP 18; TEMP 37.1; O2SAT 96
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
--- NOTE | 2024-08-08 20:00 | DI.RAD_ITS ---
Exam(s) XR HIP LT COMPLETE AP PELVIS EXAM: XR HIP LT COMPLETE AP PELVIS CLINICAL HISTORY: L hip pain. TECHNIQUE: 2D digital imaging was performed. Two views. COMPARISON: No exams were available for comparison FINDINGS: BONES: No acute fracture is present. No bony destructive lesion is seen. JOINTS: No dislocation present. The SI joints and pubic symphysis are intact. Mild degenerative chino es. SOFT TISSUE: Normal. IMPRESSION: No acute abnormality. DATA REPOSITORY: RADIATION DOSE DELIVERED:
[2024-08-08] MEDS: Acetaminophen 325 MG TAB 650 MG PO (20:25)
[2024-08-08] MEDS: Ibuprofen 400 MG TAB PO (20:26)
[2024-08-08] MEDS: Methocarbamol 500 MG TAB (21:22)
[2024-08-08] MEDS: Methocarbamol 750 MG TAB PO (21:23)
[2024-08-08] MEDS: Lidocaine 5% Patch 1 PATCH TP (21:23)
[2024-08-08 21:33] VITALS: BP 188/60; PULSE 67; RESP 16; TEMP 36.7; O2SAT 96
--- NOTE | 2024-08-08 21:52 | DI.VRAD_ITS ---
PROCEDURE INFORMATION: Exam: XR Left Hip Exam date and time: 08/08/2024 8:41 PM Age: 74 years old Clinical indication: Left hip; L hip pain TECHNIQUE: Imaging protocol: Radiologic exam of the left hip. Views: 2 or 3 views hip with pelvis when performed. COMPARISON: CT CHEST/ABD/PEL WO 11/11/2022 11:42 AM FINDINGS: Bones/joints: Unremarkable. No acute fracture. Soft tissues: Unremarkable. Gastrointestinal tract: Moderate stool throughout the colon and rectum. IMPRESSION: No acute findings. Dictated and Authenticated by: Radha Abreu MD. Orderin Isaac Jimenez MD
== END 2024-08-08 21:33 | disposition home or self-care (01) ==
LOC: ER 21:00
PROVIDERS: Emergency Provider Physician Assistant; PCP Nurse Practitioner Family
DX: M76.32 Iliotibial band syndrome, left leg (principal); I48.0 Paroxysmal atrial fibrillation; E78.5 Hyperlipidemia, unspecified; I13.0 Hypertensive heart and chronic kidney disease with heart failure and stage 1 through stage 4 chronic kidney disease, or unspecified chronic kidney disease; N18.9 Chronic kidney disease, unspecified; I50.9 Heart failure, unspecified; Z79.899 Other long term (current) drug therapy
CPT/HCPCS: 99283; 73502

== ENCOUNTER 2024-09-29 01:17 | Outpatient (CLI) | payer MEDICARE, MEDICAID, SELFPAY ==
--- NOTE | 2024-09-29 10:52 | DI.RAD_ITS ---
Exam(s) XR SACRUM COCCYX EXAM: XR SACRUM COCCYX CLINICAL HISTORY: evaluate pathology,LOW BACK PAIN,M54.50. TECHNIQUE: 2D digital imaging was performed. COMPARISON: No exams were available for comparison FINDINGS: Four views There is no evidence of sacral fracture nor osseous lesions in the sacrum. The sacroiliac joints appear unremarkable. IMPRESSION: No significant radiograph findings in the sacrum and sacroiliac joints. Incidentally noted is facet arthropathy at L5-S1 level. DATA REPOSITORY: RADIATION DOSE DELIVERED:
--- NOTE | 2024-09-29 10:52 | DI.RAD_ITS ---
Exam(s) XR LUMBAR SPINE COMPLETE EXAM: XR LUMBAR SPINE COMPLETE CLINICAL HISTORY: evaluate patholgy,LOW BACK PAIN. TECHNIQUE: 2D digital imaging was performed. COMPARISON: CR XR LUMBAR SPINE COMPLETE from 11/12/2022 FINDINGS: Five views No evidence of fracture nor listhesis nor pars defects. No significant disc space narrowing with the exception of mild narrowing at L1-2 level. Some facet joint degenerative changes are noted at the lower 2 levels. Sacroiliac joints appear age-appropriate. No scoliosis. IMPRESSION: No acute osseous findings in the lumbosacral spine. DATA REPOSITORY: RADIATION DOSE DELIVERED:
== END 2024-09-29 01:37 ==
LOC: DI 01:17
PROVIDERS: PCP Nurse Practitioner Family; Visit Provider Nurse Practitioner Family
DX: M54.50 Low back pain, unspecified (principal)
CPT/HCPCS: 72110; 72220

== ENCOUNTER 2024-10-25 11:44 | Emergency (ER) | payer MEDICARE, MEDICAID, SELFPAY ==
--- NOTE | 2024-10-25 11:45 | RT.EKG_ITS ---
APPROVED REPORT Exam: Resting ECG Reason for Exam: Chest Pain Patient Location: E HR:64 bpm ECG Measurements Heart Rate 64 AXIS PA 198 P 5 QRSd 85 QRS 4 QT 422 T -23 QTc 437 Conclusion Sinus rhythm...normal P axis, V-rate 60- 99 Borderline T abnormalities, diffuse leads...T flat/neg Sinus Rhythm with borderline T wave abnormality. When compared to prior 10/01/23 T wave abnormality os new. WD
[2024-10-25 11:51] VITALS: BP 117/72; PULSE 71; RESP 16; TEMP 36.8; O2SAT 95
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
[2024-10-25] MEDS: Aspirin 81 MG CHEW 324 MG CH (12:28)
[2024-10-25 12:40] LABS: Abs Immature Grans 0.01 10^3/uL (0.0-0.06); HCT 38.1 % (36.0-46.0); HGB 12.6 g/dL (11.2-15.7); Immature Grans % 0.2 %; MCH 29.5 pg (27.0-33.0); MCHC 33.1 % (32.0-36.0); MCV 89 fL (80-95); MPV 10.0 fL (8.0-11.0); Platelet Count 232 10^3/uL (130-400); RBC 4.27 10^6/uL (3.93-5.22); RDW 12.5 % (11.7-14.6); RDW-SD 40.7 fL; WBC 4.76 10^3/uL (4.4-10.8)
[2024-10-25 13:06] LABS: D-Dimer 574 ng/mlFEU (<500)
[2024-10-25 13:07] LABS: ALT 21 U/L (14-59); AST 16 U/L (15-37); Albumin 3.9 g/dL (3.4-5.0); Alkaline Phosphatase 87 U/L (46-116); Anion Gap 9.5 mmol/L (3-11); BUN 17 mg/dL (7-18); Bilirubin, Total 0.6 mg/dL (0.2-1.0); CO2 28.5 mmol/L (21.0-32.0); Calcium 9.4 mg/dL (8.5-10.1); Chloride 102 mmol/L (98-107); Estimated GFR 42.62 (mL/min/1.73m2); Glucose 113 mg/dL (74-106); NT-proBNP 116 pg/mL (<300); Potassium 3.7 mmol/L (3.5-5.1); Sodium 140 mmol/L (136-145); Total Protein 8.1 g/dL (6.4-8.2); Troponin I 22 ng/L (<or=51)
--- NOTE | 2024-10-25 13:32 | DI.RAD_ITS ---
Exam(s) XR LUMBAR SPINE AP, LAT EXAM: XR LUMBAR SPINE AP, LAT CLINICAL HISTORY: L radiating leg pain. TECHNIQUE: 2D digital imaging was performed. COMPARISON: CR XR LUMBAR SPINE COMPLETE from 09/29/2024 FINDINGS: 3 views No evidence fracture, listhesis, nor pars interarticularis defects. There is some mild disc space narrowing at L1-2 level again noted. Other disc spaces exhibit maintain height. No significant scoliosis. There is some facet arthropathy again noted at L5-S1 and L4-5 levels. Sacroiliac joints appear unremarkable. Bone density is age-appropriate. There are no osseous lesions evident. IMPRESSION: As above but no acute osseous findings in the lumbosacral spine and no significant radiographic change when compared to images of 09/29/2024. DATA REPOSITORY: RADIATION DOSE DELIVERED:
--- NOTE | 2024-10-25 13:32 | DI.RAD_ITS ---
Exam(s) XR HIP LT COMPLETE AP PELVIS EXAM: XR HIP LT COMPLETE AP PELVIS CLINICAL HISTORY: L hip pain. TECHNIQUE: 2D digital imaging was performed. COMPARISON: Prior x-rays 08/08/2024. FINDINGS: Two views No evidence of pelvic nor hip fractures. Minimal if any significant degenerative change in the hip joints. Additional frog-lateral view of the left hip reveals no additional findings. Small benign bone island noted in the lesser trochanter region of the left hip is unchanged. Another just above the left acetabulum is also unchanged. Sacroiliac joints appear unremarkable. No significant pelvic osseous lesions evident IMPRESSION: No acute osseous findings in the pelvis and hips. No significant radiographic change compared to images of July 2024 DATA REPOSITORY: RADIATION DOSE DELIVERED:
[2024-10-25 14:08] LABS: Troponin I 19 ng/L (<or=51)
--- NOTE | 2024-10-25 14:25 | DI.RAD_ITS ---
Exam(s) XR CHEST 2V PA LATERAL EXAM: XR CHEST 2V PA LATERAL CLINICAL HISTORY: chest pain. TECHNIQUE: 2D digital imaging was performed. COMPARISON: CR XR CHEST 1V IN DI DEPT from 10/01/2023 FINDINGS: 2 views: Heart size is normal. Moderate size hiatal hernia is again noted, unchanged. Upper mediastinum is not widened.. Right lung is clear. There is platelike atelectasis in the lateral left lung base, not previously present. No confluent infiltrates. No pleural effusions. No pulmonary edema. Left shoulder prosthesis again noted. IMPRESSION: There is platelike atelectasis now evident in the lateral left lung base, not previously present on 10/01/2023. No pleural effusions. No other pulmonary findings Moderate size hiatal hernia is again noted. DATA REPOSITORY: RADIATION DOSE DELIVERED:
[2024-10-25 14:36] VITALS: BP 130/55; PULSE 71; RESP 16; O2SAT 99
--- NOTE | 2024-10-25 14:45 | DI.CT_ITS ---
Exam(s) CT CHEST PE CTA EXAM: CT CHEST PE CTA CLINICAL HISTORY: ?PE, EKG abn, chest pain. TECHNIQUE: Imaging Protocol: CT angiography of the chest was performed using pulmonary embolus protocol. Multi planar reconstructions were performed. CONTRAST MATERIAL: Intravenous: Omnipaque 350 Contrast volume: 100 cc COMPARISON: CT CT CHEST/ABD/PEL WO from 11/11/2022 FINDINGS: CHEST: PULMONARY ARTERIES: There are no intraluminal filling defects to suggest acute pulmonary emboli. LUNGS: There mild increased markings in the inferior lingular segment of the left lung corresponding to what is seen on chest x-ray earlier today. No other focal pulmonary findings in the left lung. There is a small subpleural nodule in the right lower lobe measuring 3 mm. There are no pleural effusions. MEDIASTINUM: There is no hilar nor mediastinal adenopathy. Moderate-large hiatal hernia noted behind the left side of the heart. This measures approximately 6 cm wide by 4 cm AP by 4 cm craniocaudal. This appears to be most of the gastric fundus. CARDIAC: Heart size is upper normal. There is no pericardial effusion.Caliber of the thoracic aorta is within normal limits. There is no evidence of aortic dissection. This some reflux of intravenous contrast into the intrahepatic IVC. There is, however, no significant shift of the interventricular septum. PARTIALLY VISUALIZED UPPERMOST ABDOMEN: No significant adrenal findings. No splenomegaly. No ascites. OSSEOUS: No significant osseous lesions.Left shoulder prosthesis. No fractures. No significant osseous lesions in the chest.. IMPRESSION: 1. No evidence of acute pulmonary emboli. No evidence of pulmonary infarction.No evidence of aortic dissection nor pericardial effusion. 2. There are mild increased markings in the inferior lingular segment of the left lung, either atelectasis and/or very early infiltrate. This corresponds to the new finding seen on chest x-ray earlier today. There are no pleural effusions 3. Other findings as above Report called by myself to the ER provider on 10/25/2024 at 4:10 p.m. RADIATION DOSE DELIVERED: 151.25mGy.cm Total DLP DATA REPOSITORY: All CT scans at this facility are submitted to the National Radiology Data Registry (NRDR) Dose Index Registry (DIR) with the [employer] (A[employer]). RADIATION OPTIMIZATION: All CT scans at this facility use at least one of these dose optimization techniques: automated exposure control; mA and/or kV adjustment per patient size (includes targeted exams where dose is matched to clinical indication); or iterative reconstruction.
[2024-10-25] MEDS: Normal Saline - Diluent 50 ML VIAL IJ (15:45)
[2024-10-25] MEDS: Omnipaque 350 MG/ML 100 ML BTL IJ (15:46)
[2024-10-25 16:39] VITALS: BP 140/65; PULSE 72; RESP 14; O2SAT 98
--- NOTE | 2024-10-25 16:53 | W.EDPROG ---
Date of service: 10/25/24 Time of Service: 16:53 Medical Decision Making Care assumed from provider (Rocky MORAES) Please see their initial HPI, PE, and documentation. Discussed patient details and case and pending workup and disposition. Patient is hemodynamically stable, and alert and oriented. At the time of signout awaiting CT chest PE rule out. 1613: Received a call from radiologist no pulmonary embolism, positive atelectasis and possible new infiltrate. Incidental 3 mm nodule on the right unrelated. Will discharge with possible early infiltrate and antibiotics. Prescription given for azithromycin, given instructions on follow-up care and strict return instructions. Given information regarding CT result. Patient remained hemodynamically stable throughout the remainder of her stay. This text was generated using [employer] dictation system, please disregard any oddities of phrase or misspellings. Imaging Data Radiologic Study: Imaging: CT Scan Radiologist's impression: FINDINGS: CHEST: PULMONARY ARTERIES: There are no intraluminal filling defects to suggest acute pulmonary emboli. LUNGS: There mild increased markings in the inferior lingular segment of the left lung corresponding to what is seen on chest x-ray earlier today. No other focal pulmonary findings in the left lung. There is a small subpleural nodule in the right lower lobe measuring 3 mm. There are no pleural effusions. MEDIASTINUM: There is no hilar nor mediastinal adenopathy. Moderate-large hiatal hernia noted behind the left side of the heart. This measures approximately 6 cm wide by 4 cm AP by 4 cm craniocaudal. This appears to be most of the gastric fundus. CARDIAC: Heart size is upper normal. There is no pericardial effusion.Caliber of the thoracic aorta is within normal limits. There is no evidence of aortic dissection. This some reflux of intravenous contrast into the intrahepatic IVC. There is, however, no significant shift of the interventricular septum. PARTIALLY VISUALIZED UPPERMOST ABDOMEN: No significant adrenal findings. No splenomegaly. No ascites. OSSEOUS: No significant osseous lesions.Left shoulder prosthesis. No fractures. No significant osseous lesions in the chest.. IMPRESSION: 1. No evidence of acute pulmonary emboli. No evidence of pulmonary infarction.No evidence of aortic dissection nor pericardial effusion. 2. There are mild increased markings in the inferior lingular segment of the left lung, either atelectasis and/or very early infiltrate. This corresponds to the new finding seen on chest x-ray earlier today. There are no pleural effusions 3. Other findings as above Lab Data Lab results reviewed: Yes I reviewed the patient's lab results. Labs: Laboratory Tests Range/Units 10/25/24 10/25/24 12:35 13:40 WBC (4.4-10.8) 10^3/uL 4.76 RBC (3.93-5.22) 10^6/uL 4.27 Hgb (11.2-15.7) g/dL 12.6 Hct (36.0-46.0) % 38.1 MCV (80-95) fL 89 MCH (27.0-33.0) pg 29.5 MCHC (32.0-36.0) % 33.1 RDW (11.7-14.6) % 12.5 Plt Count (130-400) 10^3/uL 232 MPV (8.0-11.0) fL 10.0 Immature Gran % % 0.2 Neutrophils % % 50.6 Lymphocytes % % 35.7 Monocytes % % 8.4 Eosinophils % % 4.0 Basophils % % 1.1 Nucleated RBC % (0.0-0.3) % 0.0 Absolute Neutrophils (1.2-6.7) 10^3/uL 2.41 Absolute Lymphocytes (1.2-3.4) 10^3/uL 1.70 Absolute Monocytes (0.1-0.8) 10^3/uL 0.40 Absolute Eosinophils (0.0-0.7) 10^3/uL 0.19 Absolute Basophils (0.0-0.2) 10^3/uL 0.05 D-Dimer (<500) ng/mlFEU 574 H Sodium (136-145) mmol/L 140 Potassium (3.5-5.1) mmol/L 3.7 Chloride (98-107) mmol/L 102 Carbon Dioxide (21.0-32.0) mmol/L 28.5 Anion Gap (3-11) mmol/L 9.5 BUN (7-18) mg/dL 17 Creatinine (0.55-1.02) mg/dL 1.3 H Est GFR (CKD-EPI 2020) (mL/min/1.73m2) 42.62 Glucose (74-106) mg/dL 113 H Calcium (8.5-10.1) mg/dL 9.4 Total Bilirubin (0.2-1.0) mg/dL 0.6 AST (15-37) U/L 16 ALT (14-59) U/L 21 Alkaline Phosphatase (46-116) U/L 87 Troponin I (<or=51) ng/L 22 19 NT-Pro-B Natriuret Pep (<300) pg/mL 116 Total Protein (6.4-8.2) g/dL 8.1 Albumin (3.4-5.0) g/dL 3.9 Discharge Plan Disposition Patient Disposition: Home Condition: Stable Discharge Details Clinical Impression: Left lower lobe pneumonia, Hiatal hernia, Nodule of right lung Primary Care Provider: Teofilo Steele ED Provider: Niurka Barnes Home Meds and New Rx's Prescriptions: New azithromycin 250 mg tablet See Rx Instructions .ROUTE .COMPLEX 6 Days Qty: 6 0RF Rx Instructions: For 250 mg dose pack: take 500 mg today (day 1), then 250 mg for 4 days (days 2-5) Continued acetaminophen 500 mg tablet 1,000 mg PO BID PRN albuterol sulfate 90 mcg/actuation HFA aerosol inhaler 2 puff inhalation Q6H PRN (Reason: shortness of breath or wheezing) Qty: 8.5 0RF (DME) Aerochamber MV Spacer See Rx Instructions .ROUTE .MEDSUPPLY Qty: 1 0RF Rx Instructions: As directed doxepin 25 mg capsule 25 mg PO QHS Qty: 30 6RF famotidine 20 mg tablet 20 mg PO DAILY Qty: 90 3RF gabapentin 400 mg capsule 400 mg PO TID Qty: 270 3RF Patient Comments: pt states she ran out 10/25/24 Rx Instructions: dose change losartan 100 mg tablet 100 mg PO DAILY Qty: 90 3RF magnesium oxide 400 mg (241.3 mg magnesium) tablet 400 mg PO DAILY Qty: 90 4RF Rx Instructions: Take one tablet by mouth daily rosuvastatin 10 mg tablet See Rx Instructions .ROUTE .COMPLEX Qty: 90 3RF Dose Instruction: TAKE 1 TABLET(10 MG) BY MOUTH EVERY DAY Rx Instructions: TAKE 1 TABLET(10 MG) BY MOUTH EVERY DAY hydrochlorothiazide 25 mg tablet 25 mg PO DAILY Qty: 90 3RF levothyroxine 112 mcg tablet 112 mcg PO DAILY Qty: 90 4RF lidocaine [Lidoderm] 5 % adhesive patch,medicated 1 patch topical DAILY Qty: 30 0RF Rx Instructions: leave on most painful area for up to 12 hrs No Action estradiol 0.01 % (0.1 mg/gram) cream 1 appful vaginal DAILY Qty: 42.5 0RF Rx Instructions: apply to external vagina/vulva area for 30 days and then follow up with gynecology Discharge Instructions Instructions: Hiatal Hernia (DC), Pulmonary nodule, Community-Acquired Pneumonia, Adult (DC) Additional Instructions: At this time no evidence for heart attack or blood clot in your lungs. CT does show some early pneumonia on the left lower lobe. You are given an antibiotic prescription here to begin today.Please take 2 tablets on the first day and then 1 a day for the next 4 days. Please take this antibiotic with yogurt or or a probiotic. CT imaging also shows an incidental small nodule on the right lower lobe please follow-up with this with your primary care provider for further CT imaging and follow-up in the next few months. Also noted was a hiatal hernia which could be causing your symptoms. Please also discuss this with your primary care provider. Follow up with primary care provider in 3-5 days. Return to ED sooner if any worsening chest pain, fever greater than 100.8, weakness, fatigue shortness of breath, no better after 2 to 3 days of the antibiotic or concerns. Thank you for allowing us to care for you today. Referrals: Teofilo Steele NP [Primary Care Provider, Medicine] - 3 days Referral Note: ER follow-up call for an appointment Clinical Impression: Left lower lobe pneumonia; Nodule of right lung; Hiatal hernia
== END 2024-10-25 17:19 | disposition home or self-care (01) ==
PROVIDERS: Physician Assistant; Emergency Provider Registered Nurse Emergency; PCP Nurse Practitioner Family
DX: J18.9 Pneumonia, unspecified organism (principal); K44.9 Diaphragmatic hernia without obstruction or gangrene; R91.1 Solitary pulmonary nodule; I48.0 Paroxysmal atrial fibrillation; I10 Essential (primary) hypertension
CPT/HCPCS: 00123; 36415; 71275; 80053; 93005; 96374; 99285; 71046; 72100; 73502; 83880; 84484; 85025; 85379; 93010; J3490

== ENCOUNTER 2024-11-30 08:57 | Emergency (ER) | payer MEDICARE, MEDICAID, SELFPAY ==
--- NOTE | 2024-11-30 08:45 | RT.EKG_ITS ---
APPROVED REPORT Exam: Resting ECG Reason for Exam: Dizziness Patient Location: E HR:51 bpm ECG Measurements Heart Rate 51 AXIS AZ 224 P 17 QRSd 86 QRS 8 QT 485 T -8 QTc 447 Conclusion Sinus bradycardia...rate< 60 Prolonged AZ interval...AZ >220, V-rate 50- 90 No STEMI
[2024-11-30 09:07] VITALS: BP 171/54; PULSE 55; RESP 20; TEMP 36.6; O2SAT 97
[2024-11-30 09:37] LABS: Abs Immature Grans 0.01 10^3/uL (0.0-0.06); HCT 37.2 % (36.0-46.0); HGB 12.1 g/dL (11.2-15.7); Immature Grans % 0.2 %; MCH 29.2 pg (27.0-33.0); MCHC 32.5 % (32.0-36.0); MCV 90 fL (80-95); MPV 9.6 fL (8.0-11.0); Platelet Count 245 10^3/uL (130-400); RBC 4.15 10^6/uL (3.93-5.22); RDW 12.8 % (11.7-14.6); RDW-SD 42.3 fL; WBC 4.61 10^3/uL (4.4-10.8)
[2024-11-30 09:52] LABS: ALT 19 U/L (14-59); AST 12 U/L (15-37); Albumin 3.6 g/dL (3.4-5.0); Alkaline Phosphatase 80 U/L (46-116); Anion Gap 6.4 mmol/L (3-11); BUN 23 mg/dL (7-18); Bilirubin, Total 0.5 mg/dL (0.2-1.0); CO2 29.6 mmol/L (21.0-32.0); Calcium 9.2 mg/dL (8.5-10.1); Chloride 105 mmol/L (98-107); Estimated GFR 46.91 (mL/min/1.73m2); Glucose 131 mg/dL (74-106); Magnesium 1.9 mg/dL (1.8-2.4); Potassium 4.0 mmol/L (3.5-5.1); Sodium 141 mmol/L (136-145); Total Protein 7.4 g/dL (6.4-8.2); Troponin I 27 ng/L (<or=51)
[2024-11-30] MEDS: Meclizine 25 MG TAB PO (10:21)
[2024-11-30] MEDS: Normal Saline Flush 10 ML SYR IVP (10:27)
[2024-11-30] MEDS: Normal Saline - Diluent 50 ML VIAL IJ (10:27)
[2024-11-30] MEDS: Omnipaque 350 MG/ML 100 ML BTL IJ (10:28)
[2024-11-30 10:29] VITALS: BP 163/95; PULSE 50; RESP 16; O2SAT 99
--- NOTE | 2024-11-30 10:41 | DI.CT_ITS ---
Exam(s) CT BRAIN NECK CTA EXAM: CT BRAIN NECK CTA CLINICAL HISTORY: Dizziness. TECHNIQUE: Imaging Protocol: Axial CT angiography was performed with multi- slice acquisition and multi-planar and MIP reconstructions. CONTRAST MATERIAL: Intravenous: Omnipaque 350 Contrast volume:100 ml COMPARISON: CT CT HEAD WO from 10/01/2023 FINDINGS: CT Head W/O and W contrast: Ventricles and Extra axial spaces: Normal in size and morphology for the patient's age. Hemorrhage: None. Cerebral parenchyma: No evidence of acute infarct or mass. Midline shift: None. Brainstem/Cerebellum: No acute findings.. Calvarium: Normal. Visualized Paranasal sinuses/Mastoids: Clear. Soft Tissues: Unremarkable. Enhancement: Normal. Venous sinuses are patent. CTA Brain W: Internal Carotid Arteries: Right: No aneurysm, occlusion or significant stenosis. Left: No aneurysm, occlusion or significant stenosis. Middle Cerebral Arteries: Right: No aneurysm, occlusion or significant stenosis. Left: No aneurysm, occlusion or significant stenosis. Anterior Cerebral Arteries: Right: No aneurysm, occlusion or significant stenosis. Left: No aneurysm, occlusion or significant stenosis. Posterior cerebral Arteries: Right: No aneurysm, occlusion or significant stenosis. Left: No aneurysm, occlusion or significant stenosis. Vertebral Arteries: Right: No aneurysm, occlusion or significant stenosis. Left: No aneurysm, occlusion or significant stenosis. Basilar Artery: No aneurysm, occlusion or significant stenosis. CTA Neck W: Visualized aorta: Unremarkable. Visualized pulmonary arteries: Unremarkable. Subclavian arteries: Unremarkable. Common Carotid: Right: No dissection, occlusion or significant stenosis. Left: Minimal calcific plaque at the bulb. No dissection, occlusion or significant stenosis. External Carotid: Right: No dissection, occlusion or significant stenosis. Left: No dissection, occlusion or significant stenosis. Internal Carotid: Right: No dissection, occlusion or significant stenosis. Left: Tortuous portion. No dissection, occlusion or significant stenosis. Vertebral Artery: Both her tibial arteries are tortuous proximally. Right: No dissection, occlusion or significant stenosis. Left: No dissection, occlusion or significant stenosis. Lung Apices: No acute findings. Bones: No acute abnormality. Soft Tissues: Normal. IMPRESSION: 1. CTA brain: Normal CTA examination of the [place]. 2. Head CT: No acute abnormality. 3. CTA neck: No evidence of occlusion, significant stenosis or dissection. RADIATION DOSE DELIVERED: Total DLP DATA REPOSITORY: All CT scans at this facility are submitted to the National Radiology Data Registry (NRDR) Dose Index Registry (DIR) with the [employer] (A[employer]). RADIATION OPTIMIZATION: All CT scans at this facility use at least one of these dose optimization techniques: automated exposure control; mA and/or kV adjustment per patient size (includes targeted exams where dose is matched to clinical indication); or iterative reconstruction.
[2024-11-30 10:50] LABS: Troponin I 26 ng/L (<or=51)
[2024-11-30 10:51] LABS: COVID-19 PCR Negative (Negative); RSV PCR Negative (Negative)
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
[2024-11-30 11:46] VITALS: BP 153/65; PULSE 56; RESP 18; O2SAT 98
== END 2024-11-30 11:58 | disposition home or self-care (01) ==
PROVIDERS: Emergency Provider General Practice; PCP Nurse Practitioner Family
DX: H81.399 Other peripheral vertigo, unspecified ear (principal); R11.0 Nausea; Z86.79 Personal history of other diseases of the circulatory system
CPT/HCPCS: 99284; 99285; 36415; 70496; 70498; 80053; 87637; 93005; 83735; 84484; 85025; 93010; J3490

== ENCOUNTER 2024-12-14 15:31 | Outpatient (CLI) | payer MEDICARE, MEDICAID, SELFPAY ==
--- NOTE | 2024-12-14 09:15 | DI.RAD_ITS ---
Exam(s) XR HUMERUS LT EXAM: XR HUMERUS LT CLINICAL HISTORY: M79.602 Pain Left Upper extremity, evaluate pathology. TECHNIQUE: 2D digital imaging was performed of the left humerus. Three images were obtained. AP and lateral views were obtained. COMPARISON: CR LEFT SHOULDER COMPLETE from 11/21/2016 CR LEFT SHOULDER COMPLETE from 01/15/2017 CR LEFT SHOULDER COMPLETE from 04/15/2017 FINDINGS: BONES: There again seen findings of an old healed left humeral fracture. No acute fracture is seen. No bony destructive lesion is seen. The patient has a left shoulder prosthesis. SOFT TISSUE: Normal. IMPRESSION: No acute abnormality. DATA REPOSITORY: RADIATION DOSE DELIVERED:
== END 2024-12-14 15:51 ==
LOC: DI 15:32
PROVIDERS: PCP Nurse Practitioner Family; Visit Provider Nurse Practitioner Family
DX: M79.602 Pain in left arm (principal)
CPT/HCPCS: 73060

== ENCOUNTER 2025-01-09 16:09 | Outpatient (REF) | payer MEDICARE, MEDICAID, SELFPAY | END 2025-01-09 16:10 | disposition home or self-care (01) | LOC: LBN 16:09 | PROVIDERS: PCP Nurse Practitioner Family; Visit Provider Physician Assistant | DX: R91.1 Solitary pulmonary nodule (principal); R21 Rash and other nonspecific skin eruption | CPT/HCPCS: 87480; 87510; 87660 ==

== ENCOUNTER 2025-01-27 10:43 | Outpatient (REF) | payer MEDICARE, MEDICAID, SELFPAY | END 2025-01-27 10:44 | disposition home or self-care (01) | LOC: LBN 10:43 | PROVIDERS: PCP Nurse Practitioner Family; Visit Provider Nurse Practitioner Family | DX: N89.8 Other specified noninflammatory disorders of vagina (principal) | CPT/HCPCS: 87480; 87510; 87660 ==

== ENCOUNTER 2025-02-15 14:54 | Outpatient (REF) | payer MEDICARE, MEDICAID, SELFPAY ==
[2025-02-20 14:32] LABS: HSV 1 PCR Negative (Negative); HSV 2 PCR Negative (Negative); Specimen Source LABIA
== END 2025-02-15 14:55 | disposition home or self-care (01) ==
LOC: LBN 14:54
PROVIDERS: PCP Nurse Practitioner Family; Visit Provider Nurse Practitioner Family
DX: N90.89 Other specified noninflammatory disorders of vulva and perineum (principal)
CPT/HCPCS: 87529